=== PATIENT | male | born 1975 | race Caucasian/White ===

== ENCOUNTER 2017-06-15 11:48 | Inpatient (IN) | payer MEDICARE, OTHER, SELFPAY ==
[2017-06-15 11:49] VITALS: BP 134/89; PULSE 87; RESP 20; TEMP 37; O2SAT 99; BMI 23.5
--- NOTE | 2017-06-15 12:11 | XR_ITS ---
XR chest portable HISTORY: ITS.REASON: cough ORDERING PHYSICIAN: Jose Cole MD PATIENT AGE: 41 years COMPARISON: None available FINDINGS: The cardiomediastinal silhouette and pulmonary vascularity are within normal limits. Tracheostomy tube is present in good position on frontal view. Patchy density is present in both lower lobes consistent with atelectasis and/or infiltrate left greater than right. Upper lobes are clear. No acute bony anomalies. Multilevel thoracic osteophytosis.. IMPRESSION: Bilateral lower lobe atelectasis and/or infiltrate left greater than right with tracheostomy tube present
--- NOTE | 2017-06-15 12:14 | HMH.EDSOB ---
ED Disposition Clinical Impression: Dehydration with hypernatremia Pneumonia Qualifiers: Pneumonia type: due to unspecified organism Laterality: bilateral Lung location: lower lobe of lung Qualified Code(s): J18.9 - Pneumonia, unspecified organism Disposition: Still a Patient Condition on Discharge: Fair Referrals: Juan Daniel Guidry [Primary Care Provider] - - Critical Care Critical Care Time: No Attestation: On , the high probability of a clinically significant, sudden or life threatening deterioration of the following system(s) required my full and direct attention, intervention and personal management. The time I documented below is in addition to time spent performing reported procedures but includes the following listed in this critical care notation. Medical Decision Making - Medical Records Medical records reviewed: Yes: I reviewed the patient's medical records. Vital Signs: 06/15/17 11:49 Temperature 98.6 F Temperature Source Temporal Artery Scan Pulse Rate [Right Brachial] 87 Respiratory Rate 20 Blood Pressure [Right Arm] 134/89 Blood Pressure Mean [Right Arm] 104 Blood Pressure Source [Right Arm] Automatic Cuff Blood Pressure Position [Right Arm] Supine 02 Sat by Pulse Oximetry 99 Oxygen Delivery Method Trach Collar - Lab Data Lab Results 06/15/17 12:29: Specimen Source L brachial, O2 % 2 lpm, ABG pH 7.45, ABG pCO2 37.4, ABG pO2 89.2, ABG HCO3 25.1, ABG Total CO2 26.3, ABG O2 Saturation 97, ABG Base Excess 1.0, Sudhakar Test n/a 06/15/17 12:40: WBC 16.9 H, RBC 4.31 L, Hgb 11.7 L, Hct 38.9 L, MCV 90.2, MCH 27.1, MCHC 30.0 L, RDW 15.6, Plt Count 383, MPV 8.8, Neut % (Auto) 75.1, Lymph % (Auto) 18.3, [place] % (Auto) 5.3, Eos % (Auto) 0.7, Baso % (Auto) 0.5, Neut # (Auto) 12.7 H, Lymph # (Auto) 3.1, [place] # (Auto) 0.9, Eos # (Auto) 0.1, Baso # (Auto) 0.1 06/15/17 12:40: Sodium 152 H*, Potassium 4.2, Chloride 118 H, Carbon Dioxide 27, Anion Gap 11.2, BUN 38 H, Creatinine 0.73, Estimated Creat Clear 126, Estimated GFR 117, Est GFR ( Amer) 142, Glucose 143 H, Calcium 9.2, Total Bilirubin 0.3, AST 9 L, ALT 16, Alkaline Phosphatase 81, Total Protein 7.9, Albumin 1.9 L, Globulin 6.0 H, Albumin/Globulin Ratio 0.3 L 06/15/17 12:40: Lactic Acid 0.8 06/15/17 12:40: Influenza Type A Ag Negative, Influenza Type B Ag Negative, Group A Strep Rapid Cancelled Result diagrams: 06/15/17 12:40 06/15/17 12:40 Orders (Tests/Meds): ORDERS Category Date Time Status Complete Blood Count Auto Diff Stat Lab 06/15/17 12:40 Results Blood Culture Stat Micro 06/15/17 12:40 Received Sputum Culture & Gram Stain Stat Micro 06/15/17 13:05 Received - Radiology Data #1 Image(s): Chest Image Reviewed: Yes I reviewed the patient's radiology image, Yes I have reviewed radiologist's interpretation Preliminary Findings: Abnormal Bibasilar atelectasis cannot exclude acute infiltrate. IMPRESSION: Bilateral lower lobe atelectasis and/or infiltrate left greater than right with tracheostomy tube present - Twin Inquiry Pt receiving controlled substance: No Twin was queried for this patient: No Medical Decision Making Narrative: I reviewed the chest x-ray reports in addition to his labs and discussed it with Dr. Alejandro who accepted to admit the patient for pneumonia and dehydration. Contacted the state guardian and the family were unable to obtain further medical information to help with his care. Resp/SOB HPI - General Chief Complaint: Shortness of Breath/Dyspnea Stated Complaint: Decreased O2 sats Mode of Arrival: EMS Limitations: Physical Limitations Description of Symptoms (Recalled from ER Triage Doc. by RN): Pt sent from [facility] after staff advises he had low o2 sats and green sputum coming from his trach. Pt presents to ED with sats 98% with 4lpm. - History of Present Illness 41 years old white male with with history of quadriparesis tracheostomy feeding tube and ind
--- NOTE | 2017-06-15 12:22 | ED_ITS ---
ED Disposition Clinical Impression: Dehydration with hypernatremia Pneumonia Qualifiers: Pneumonia type: due to unspecified organism Laterality: bilateral Lung location : lower lobe of lung Qualified Code(s): J18.9 - Pneumonia, unspecified organism Disposition: Still a Patient Condition on Discharge: Fair Referrals: Juan Daniel Guidry [Primary Care Provider] - - Critical Care Critical Care Time: No Attestation: On , the high probability of a clinically significant, sudden or life threatening deterioration of the following system(s) required my full and direct attention, intervention and personal management. The time I documented below is in addition to time spent performing reported procedures but includes the following listed in this critical care notation. Medical Decision Making - Medical Records Medical records reviewed: Yes: I reviewed the patient's medical records. Vital Signs: 06/15/17 11:49 Temperature 98.6 F Temperature Source Temporal Artery Scan Pulse Rate [Right Brachial] 87 Respiratory Rate 20 Blood Pressure [Right Arm] 134/89 Blood Pressure Mean [Right Arm] 104 Blood Pressure Source [Right Arm] Automatic Cuff Blood Pressure Position [Right Arm] Supine 02 Sat by Pulse Oximetry 99 Oxygen Delivery Method Trach Collar - Lab Data Lab Results 06/15/17 12:29: Specimen Source L brachial, O2 % 2 lpm, ABG pH 7.45, ABG pCO2 37.4, ABG pO2 89.2, ABG HCO3 25.1, ABG Total CO2 26.3, ABG O2 Saturation 97, ABG Base Excess 1.0, Sudhakar Test n/a 06/15/17 12:40: WBC 16.9 H, RBC 4.31 L, Hgb 11.7 L, Hct 38.9 L, MCV 90.2, MCH 27.1, MCHC 30.0 L, RDW 15.6, Plt Count 383, MPV 8.8, Neut % (Auto) 75.1, Lymph % (Auto) 18.3, [place] % (Auto) 5.3, Eos % (Auto) 0.7, Baso % (Auto) 0.5, Neut # ( Auto) 12.7 H, Lymph # (Auto) 3.1, [place] # (Auto) 0.9, Eos # (Auto) 0.1, Baso # ( Auto) 0.1 06/15/17 12:40: Sodium 152 H*, Potassium 4.2, Chloride 118 H, Carbon Dioxide 27 , Anion Gap 11.2, BUN 38 H, Creatinine 0.73, Estimated Creat Clear 126, Estimated GFR 117, Est GFR ( Amer) 142, Glucose 143 H, Calcium 9.2, Total Bilirubin 0.3, AST 9 L, ALT 16, Alkaline Phosphatase 81, Total Protein 7.9 , Albumin 1.9 L, Globulin 6.0 H, Albumin/Globulin Ratio 0.3 L 06/15/17 12:40: Lactic Acid 0.8 06/15/17 12:40: Influenza Type A Ag Negative, Influenza Type B Ag Negative, Group A Strep Rapid Cancelled Result diagrams: 06/15/17 12:40 06/15/17 12:40 Orders (Tests/Meds): ORDERS Category Date Time Status Complete Blood Count Auto Diff Stat Lab 06/15/17 12:40 Results Blood Culture Stat Micro 06/15/17 12:40 Received Sputum Culture & Gram Stain Stat Micro 06/15/17 13:05 Received - Radiology Data #1 Image(s): Chest Image Reviewed: Yes I reviewed the patient's radiology image, Yes I have reviewed radiologist's interpretation Preliminary Findings: Abnormal Bibasilar atelectasis cannot exclude acute infiltrate. IMPRESSION: Bilateral lower lobe atelectasis and/or infiltrate left greater than right with tracheostomy tube present - Twin Inquiry Pt receiving controlled substance: No Twin was queried for this patient: No Medical Decision Making Narrative: I reviewed the chest x-ray reports in addition to his labs and discussed it with Dr. Alejandro who accepted to admit the patient for pneumonia and dehydration. Contacted the state guardian and the family were unable to obtain further medical
[2017-06-15 13:11] LABS: Alanine Aminotransferase 16 U/L (12-78); Albumin Level 1.9 gm/dL (3.4-5.0); Albumin/Globulin Ratio 0.3 (1.1-1.8); Alkaline Phosphatase 81 U/L (46-116); Anion Gap 11.2 mEq/L (5-15); Aspartate Amino Transferase 9 U/L (15-37); Bilirubin,Total 0.3 mg/dL (0.2-1.0); Blood Urea Nitrogen 38 mg/dL (7-18); Calcium 9.2 mg/dL (8.5-10.1); Carbon Dioxide 27 mmol/L (21.0-32.0); Chloride 118 mmol/L (98-107); Creatinine Clearance Estimated 126 mL/min (0-300); Creatinine,Serum 0.73 mg/dL (0.70-1.30); Estimated Glomerular Filt Rate 117 ml/min (>60); GFR (African American) 142 ML/MIN (>60); Glucose 143 mg/dL (74-106); Potassium 4.2 mmoL/L (3.5-5.1); Total Protein,Serum 7.9 gm/dL (6.4-8.2)
[2017-06-15 13:12] LABS: ABG HCO3 25.1 mmhg (22.0-26.0); ABG Oxygen Saturation 97 % (90-100); ABG PCO2 37.4 mmhg (35.0-45.0); ABG PH 7.45 mmol/L (7.35-7.45); ABG PO2 89.2 mmhg (80-100); ABG TCO2 26.3 mmhg (23-27)
[2017-06-15 13:13] LABS: Lactic Acid 0.8 mmol/L (0.4-2.0); Sodium 152 mmol/L (136-145)
[2017-06-15 13:15] LABS: Oxygen 2 lpm %
[2017-06-15 13:16] LABS: Source L BRACHIAL
[2017-06-15 13:20] LABS: Basophils # 0.1 K/mm3 (0-0.2); Basophils % 0.5 % (0.1-2.0); Eosinophils # 0.1 K/mm3 (0.0-0.4); Eosinophils % 0.7 % (0.1-12.0); Hematocrit 38.9 % (42.0-52.0); Hemoglobin 11.7 g/dL (14.1-18.0); Lymphocytes # 3.1 K/mm3 (0.7-4.5); Lymphocytes % 18.3 K/mm3 (10-50); Mean Corpuscular Hemoglobin 27.1 pg (27.0-31.2); Mean Corpuscular Volume 90.2 fl (80-94); Mean Platelet Volume 8.8 fl (7.4-10.4); Monocytes # 0.9 K/mm3 (0.1-1.0); Monocytes % 5.3 % (1.7-9.3); Neutrophils # 12.7 K/mm3 (1.8-7.8); Neutrophils % 75.1 % (37.0-80.0); Platelet Count 383 K/mm3 (142-424); Red Blood Count 4.31 M/mm3 (4.60-6.20); Red Cell Distribution Width 15.6 % (11.5-17.5); White Blood Count 16.9 K/mm3 (4.8-10.8)
[2017-06-15 13:22] LABS: MANUAL DIFFERENTIAL MANUAL DIFFERENTIAL (MANUAL DIFF)
[2017-06-15 13:59] LABS: Eosinophils % 1 % (0-3); Lymphocytes % 17 % (10-50); Monocytes % 7 % (2-9); Neutrophils % 75 % (42-76); Total Cells Counted 100
[2017-06-15 14:00] LABS: Platelet Estimate Normal
[2017-06-15 14:15] LABS: RBC Morphology Normal
[2017-06-15 14:27] VITALS: BP 140/89; PULSE 110; RESP 20; O2SAT 98
[2017-06-15 16:42] VITALS: BP 130/70; PULSE 65; RESP 20; TEMP 36.9; O2SAT 98
[2017-06-15 17:03] VITALS: BP 104/80; PULSE 97; RESP 18; TEMP 37.8; O2SAT 94; BMI 23.1
--- NOTE | 2017-06-15 17:52 | HMH.HP ---
*Admission Date: 06/15/17 <Nilam Veliz - 06/15/17 18:36> *Chief complaint: decrease in O2 sats <Nilam Veliz - 06/15/17 18:36> *History of present illness: Mr Solorzano is a 41 years old white male who was admitted to [facility] 06/10/17 from [facility] with history of tracheostomy, feeding tube, colostomy and indwelling catheter. Yesterday, [facility] staff noticed greenish sputum from the tracheostomy. This morning the [facility] staff noticed low O2 saturation of 84% on 2 L. The patient was in no respiratory distress upon the EMS arrival. They placed him on 2 L nasal cannula and his sat was 96. Upon arrival to [facility] ER the patient seemed to be in no respiratory distress. He was afebrile and O2 sat remained at 94% on 2 L. CXR revealed possible bilateral infiltrates and he was admitted for further treatment. Information was obtained from the sister who had previously cared for him for 22 years. He regressed the past year and was made a varela of the [facility]. 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 He had seizures at about the age of 1. She stated that she taught him how to walk,talk, and eat. He then regressed and she is not sure why. 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 He has had surgical debridment of this. He is also a diabetic and has been anemic as well as having an enlarged heart, seizure disorder, UTI's, pseudomonas infections, and pneumonias. He has been unable to eat and has a feeding tube. According to the sister the colostomy was created in order to keep his wound clean. She was not clear as to why he has a trach tube, and records are incomplete. Nursing staff and I have not been able to reach the Long Term who is assigned to him. <VelizCarolynNilam - 06/15/17 18:36> [facility] History Medical History: Reports:: Diabetes Mellitus Type 2, Seizures, Urinary Tract Infection Denies:: Chronic Obstructive Pulmonary Disease (COPD) <Nilam Veliz 06/15/17 18:36> Other Medical History: Reports: Anemia <Nilam Veliz 06/15/17 18:36> Comment: wound debridment <Nilam Veliz 06/15/17 18:36> - *Social History Alcohol Intake: never <Nilam Veliz 06/15/17 17:58> Occupational Status: disabled <Nilam Veliz 06/15/17 17:58> Housing: [facility] <Nilam Veliz 06/15/17 17:58> Household Members: other <Nilam Veliz 06/15/17 17:58> - Psychiatric History Expresses thoughts of harming self/others: None <Nilam Veliz 06/15/17 17:58> Suicide Plan Description: No Plan <Nilam Veliz 06/15/17 17:58> *Family Hx:: Diabetes, Heart Attack <Nilam Veliz 06/15/17 18:36> Review of Systems - Review of Systems Review of systems:: unable to obtain <Nilam Veliz 06/15/17 18:36> Meds Allergies Allergy/AdvReac Type Severity Reaction Status Date / Time haloperidol [From Haldol] Allergy Verified 06/15/17 18:41 <Gary Alejandro - 06/15/17 18:58> Exam Vital signs and Labs for Last 24 Hours: Temp Pulse Resp BP Pulse Ox 100.1 F H 97 H 18 104/80 94 L 06/15/17 17:03 06/15/17 17:03 06/15/17 17:03 06/15/17 17:03 06/15/17 17:03 <Gary Alejandro - 06/15/17 18:58> Temp Pulse Resp BP Pulse Ox 100.1 F H 97 H 18 104/80 94 L 06/15/17 17:03 06/15/17 17:03 06/15/17 17:03 06/15/17 17:03 06/15/17 17:03 Laboratory Tests 06/15/17 06/15/17 06/15/17 12:29 12:40 12:40 WBC 16.9 H RBC 4.31 L Hgb 11.7 L Hct 38.9 L Neut % (Auto) 75.1 Lymph % (Auto) 18.3 [place] % (Auto) 5.3 ABG pH 7.45 ABG pCO2 37.4 ABG pO2 89.2 ABG HCO3 25.1 ABG Total CO2 26.3 Sodium 152 H* Potassium 4.2 Chloride 118 H Carbon Dioxide 27 Anion Gap 11.2 BUN 38 H Creatinine 0.73 Glucose 143 H Lactic Acid Calcium 9.2 Total Bilirubin 0.3 AST 9 L ALT 16
--- NOTE | 2017-06-15 17:58 | P.HP_ITS ---
*Admission Date: 06/15/17 <Nilam Veliz - 06/15/17 18:36> *Chief complaint: decrease in O2 sats <Nilam Veliz - 06/15/17 18:36> *History of present illness: Mr Solorzano is a 41 years old white male who was admitted to [facility] from [facility] with history of tracheostomy, feeding tube, colostomy and indwelling catheter. Yesterday, The correction staff noticed greenish sputum from the tracheostomy. This morning the correction staff noticed low O2 saturation of 84% on 2 L. The patient was in no respiratory distress upon the EMS arrival. They placed him on 2 L nasal cannula and his sat was 96. Upon arrival to [facility] ER the patient seemed to be in no respiratory distress. He was afebrile and O2 sat remained at 94% on 2 L. CXR revealed possible bilateral infiltrates and he was admitted for further treatment. Information was obtained from the sister who had previously cared for him for 22 years. He regressed the past year and was made a varela of the [facility]. 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 He had seizures at about the age of 1. She stated that she taught him how to walk,talk , and eat. He then regressed and she is not sure why. 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 He has had surgical debridment of this. He is also a diabetic and has been anemic as well as having an enlarged heart, seizure disorder, UTI's, pseudomonas infections, and pneumonias. He has been unable to eat and has a feeding tube. According to the sister the colostomy was created in order to keep his wound clean. She was not clear as to why he has a trach tube, and records are incomplete. Nursing staff and I have not been able to reach the Office Services Specialist who is assigned to him. <VelizCarolynNilam - 06/15/17 18:36> [facility] History Medical History: Reports:: Diabetes Mellitus Type 2, Seizures, Urinary Tract Infection Denies:: Chronic Obstructive Pulmonary Disease (COPD) <Nilam Veliz 18:36> Other Medical History: Reports: Anemia <Nilam Veliz 06/15/17 18:36> Comment: wound debridment <Nilam Veliz 06/15/17 18:36> - *Social History Alcohol Intake: never <Nilam Veliz 06/15/17 17:58> Occupational Status: disabled <Nilam Veliz 06/15/17 17:58> Housing: correction <Nilam Veliz 06/15/17 17:58> Household Members: other <Nilam Veliz 06/15/17 17:58> - Psychiatric History Expresses thoughts of harming self/others: None <Nilam Veliz 06/15/17 17: 58> Suicide Plan Description: No Plan <Nilam Veliz 06/15/17 17:58> *Family Hx:: Diabetes, Heart Attack <Nilam Veliz 06/15/17 18:36> Review of Systems - Review of Systems Review of systems:: unable to obtain <Nilam Veliz 06/15/17 18:36> Meds Allergies Allergy/AdvReac Type Severity Reaction Status Date / Time haloperidol [From Haldol] Allergy Verified 06/15/17 18:41 <Gary Alejandro - 06/15/17 18:58> Exam Vital signs and Labs for Last 24 Hours: Temp Pulse Resp BP Pulse Ox 100.1 F H 97 H 18 104/80 94 L 06/15/17 17:03 06/15/17 17:03 06/15/17 17:03 06/15/17 17:03 06/15/17 17:03 <Gary Alejandro - 06/15/17 18:58> Temp Pulse Resp BP Pulse Ox 100.1 F H 97 H 18 104/80 94 L 06/15/17 17:03 06/15/17 17:03 06/15/17 17:03 06/15/17 17:03 06/15/17 17:03 Laboratory Tests 06/15/17 06/15/17 06/15/17 12:29 12:40 12:40
[2017-06-15 21:06] VITALS: BP 104/78; PULSE 94; RESP 24; TEMP 36.3; O2SAT 96
[2017-06-16] VITALS (10 sets, daily range): BP systolic 110–144; BP diastolic 70–87; PULSE 62–98; RESP 18–24; TEMP 37.2–38.6; O2SAT 87–94; BMI 23.0
--- NOTE | 2017-06-16 01:46 | PC.NURSE ---
JEVITY 1.2 STARTED AT 15ML PER ORDER PER G TUBE AT 2130. NO RESIDUAL. AT 0130 NO RESIDUAL, INCREASED RATE BY 10ML PER HOUR FOR TOTAL OF 25ML PER HOUR. HOB ELEVATED.
--- NOTE | 2017-06-16 04:07 | PC.NURSE ---
nurse notified of pts temp
--- NOTE | 2017-06-16 04:29 | PC.NURSE ---
PT HAS REMAINED AWAKE ALL NIGHT. PT NONVERBAL, UNABLE TO DETERMINE ORIENTATION. TRACH INTACT WITH O2 AT 2L PER TRACH COLLAR. PT WITH PRODUCTIVE COUGH, CREAMY THICK SECRETIONS NOTED. SUCTION WITH YONKUER. PT WITH EXCESS SECRETIONS, DROOLING FROM MOUTH. GTUBE PER LUQ WITH JEVITY STARTED AT 15 ML PER HOUR. TOLERATING WELL. HAVE INCREASED TO 25ML PER HOUR. COLOSTOMY LLQ WITH LOOSE LIGHT BROWN STOOL NOTED. CONNOLLY TO BSD WITH SEDIMENT AND DARK YELLOW. PT HAS STAG 4 ULCER TO COCCYX, DRSG INTACT. PT TURNED EVERY 2 HOURS. TRACH CARE PERFORMED THIS AM. BILAT ARMS CONTRACTED. BILAT FOOT DROP NOTED.
--- NOTE | 2017-06-16 05:49 | PC.NURSE ---
AT 0530 RESIDUAL CHECK, NO RETURN. INCREASED JEVITY 1.2 TO 35ML PER HOUR. PT TOLERATING WELL.
[2017-06-16 06:50] LABS: Basophils # 0.1 K/mm3 (0-0.2); Basophils % 0.5 % (0.1-2.0); Eosinophils # 0.1 K/mm3 (0.0-0.4); Eosinophils % 0.5 % (0.1-12.0); Hematocrit 33.8 % (42.0-52.0); Lymphocytes % 16.9 K/mm3 (10-50); Mean Corpuscular HGB Conc 30.4 g/dL (31.8-35.4); Mean Corpuscular Hemoglobin 27.6 pg (27.0-31.2); Mean Corpuscular Volume 90.8 fl (80-94); Mean Platelet Volume 9.2 fl (7.4-10.4); Monocytes # 0.5 K/mm3 (0.1-1.0); Monocytes % 4.5 % (1.7-9.3); Neutrophils # 9.3 K/mm3 (1.8-7.8); Neutrophils % 77.7 % (37.0-80.0); Platelet Count 327 K/mm3 (142-424); Red Blood Count 3.72 M/mm3 (4.60-6.20); Red Cell Distribution Width 15.4 % (11.5-17.5)
[2017-06-16 06:59] LABS: Anion Gap 9.4 mEq/L (5-15); Blood Urea Nitrogen 43 mg/dL (7-18); Carbon Dioxide 28 mmol/L (21.0-32.0); Chloride 119 mmol/L (98-107); Creatinine Clearance Estimated 114 mL/min (0-300); Creatinine,Serum 0.77 mg/dL (0.70-1.30); Estimated Glomerular Filt Rate 110 ml/min (>60); GFR (African American) 133 ML/MIN (>60); Glucose 208 mg/dL (74-106); Potassium 4.4 mmoL/L (3.5-5.1)
[2017-06-16 07:00] LABS: Sodium 152 mmol/L (136-145)
[2017-06-16 07:06] LABS: Hemoglobin 10.4 g/dL (14.1-18.0)
--- NOTE | 2017-06-16 07:28 | HMH.PHAVTE ---
[facility] Pharmacy VTE Monitoring - Patient Demographics Admission date: 06/15/17 Report Date: 06/16/17 Time: 07:28 Allergies/Adverse Reactions: Patient Allergies haloperidol [From Haldol] Allergy (Verified 06/15/17 18:41) Height: 1.68 m Weight: 64.977 kg Patient Problems: Current Active Problems Pneumonia (Acute) Dehydration with hypernatremia (Acute) Type 2 diabetes mellitus (Acute) CRF (chronic renal failure) (Acute) Seizure disorder (Acute) Colostomy care (Acute) Tracheostomy in place (Acute) Dysphagia (Acute) Deaf (Acute) Mentally challenged (Acute) Gastrostomy tube in place (Acute) Decubitus ulcer (Chronic) Decubitus ulcer of sacral region, stage 4 (Chronic) Hypoxemia (Acute) - VTE Risk Labs: VTE Related Lab Results Hgb 10.4 g/dL (14.1-18.0) L D 06/16/17 06:25 Hct 33.8 % (42.0-52.0) L 06/16/17 06:25 Plt Count 327 K/mm3 (142-424) 06/16/17 06:25 BUN 43 mg/dL (7-18) H 06/16/17 06:25 Creatinine 0.77 mg/dL (0.70-1.30) 06/16/17 06:25 Estimated Creat Clear 114 mL/min (0-300) 06/16/17 06:25 Was VTE Risk Assessment Performed: No Clinical Trial Participant: No - Prophylaxis VTE Prophylaxis Ordered?: Yes Types of VTE Prophylaxis: TEDS Knee High
--- NOTE | 2017-06-16 08:17 | HMH.ACPN2 ---
<Krystal Castro - Last Filed: 06/16/17 08:17> Internal Medicine - PN: Subj *Date: 06/16/17 *Time: 08:17 Interval history: She is lying in the bed this a.m. He appears in no acute distress. Exam Vital signs and Labs for Last 24 Hours: Temp Pulse Resp BP Pulse Ox 99.7 F H 65 22 144/81 87 L 06/16/17 04:06 06/16/17 06:30 06/16/17 04:06 06/16/17 04:06 06/16/17 06:30 Laboratory Results - last 24 hr 06/16/17 06:25: WBC 12.0 H D, RBC 3.72 L, Hgb 10.4 L D, Hct 33.8 L, MCV 90.8, MCH 27.6, MCHC 30.4 L, RDW 15.4, Plt Count 327, MPV 9.2, Neut % (Auto) 77.7, Lymph % (Auto) 16.9, [place] % (Auto) 4.5, Eos % (Auto) 0.5, Baso % (Auto) 0.5, Neut # (Auto) 9.3 H, Lymph # (Auto) 2.0, [place] # (Auto) 0.5, Eos # (Auto) 0.1, Baso # (Auto) 0.1 06/16/17 06:25: Sodium 152 H*, Potassium 4.4, Chloride 119 H, Carbon Dioxide 28, Anion Gap 9.4, BUN 43 H, Creatinine 0.77, Estimated Creat Clear 114, Estimated GFR 110, Est GFR ( Amer) 133, Glucose 208 H D I & O for Last 24 hours: Intake & Output 06/13/17 06/14/17 06/15/17 06/16/17 11:59 11:59 11:59 11:59 Intake Total 837 / 837 Output Total 1051 / 1051 Balance -214 / -214 Weight 143 lb 3.996 oz - Constitutional no acute distress - *Routine Respiratory Exam Present: decreased breath sounds - *Routine Cardiovascular Exam Present: RRR - *Routine Abdominal Exam Present: soft, normoactive bowel sounds (G-tube and colostomy in place) - *Routine Extremities Exam Absent: edema Assessment and Plan (1) Pneumonia Current visit: Yes Status: Acute Qualifiers: Pneumonia type: due to unspecified organism Laterality: bilateral Lung location: lower lobe of lung Qualified Code(s): J18.9 - Pneumonia, unspecified organism Category: Medical Code(s): J18.9 - Pneumonia, unspecified organism (2) Hypoxemia Current visit: Yes Status: Acute Category: Medical Code(s): R09.02 - Hypoxemia (3) Type 2 diabetes mellitus Current visit: Yes Status: Acute Category: Medical Code(s): E11.9 - Type 2 diabetes mellitus without complications (4) CRF (chronic renal failure) Current visit: Yes Status: Acute Category: Medical Code(s): N18.9 - Chronic kidney disease, unspecified (5) Seizure disorder Current visit: Yes Status: Acute Category: Medical Code(s): G40.909 - Epilepsy, unspecified, not intractable, without status epilepticus (6) Colostomy care Current visit: Yes Status: Acute Category: Medical Code(s): Z43.3 - Encounter for attention to colostomy (7) Tracheostomy in place Current visit: Yes Status: Acute Category: Medical Code(s): Z93.0 - Tracheostomy status (8) Dysphagia Current visit: Yes Status: Acute Category: Medical Code(s): R13.10 - Dysphagia, unspecified (9) Deaf Current visit: Yes Status: Acute Category: Medical Code(s): H91.90 - Unspecified hearing loss, unspecified ear (10) Mentally challenged Current visit: Yes Status: Acute Category: Medical Code(s): F79 - Unspecified intellectual disabilities (11) Gastrostomy tube in place Current visit: Yes Status: Acute Category: Medical Code(s): Z93.1 - Gastrostomy status (12) Dehydration with hypernatremia Current visit: Yes Status: Acute Category: Medical Code(s): E87.0 - Hyperosmolality and hypernatremia (13) Decubitus ulcer Current visit: Yes Status: Chronic Category: Medical Code(s): L89.90 - Pressure ulcer of unspecified site, unspecified stage (14) Decubitus ulcer of sacral region, stage 4 Current visit: Yes Status: Chronic Category: Medical Code(s): L89.154 - Pressure ulcer of sacral region, stage 4 - Assessment and plan all Dx Assessment and Plan for all problems:: Patient is stable today. Will get another CXR and start on his home medications. <Gary Alejandro - Last Filed: 06/16/17 08:27> Internal Medicine - PN: Subj *Date: 06/16/17 *Time: 08:24 Exam Michelle
--- NOTE | 2017-06-16 08:21 | P.PN_ITS ---
<Krystal Castro - Last Filed: 06/16/17 08:17> Internal Medicine - PN: Subj *Date: 06/16/17 *Time: 08:17 Interval history: She is lying in the bed this a.m. He appears in no acute distress. Exam Vital signs and Labs for Last 24 Hours: Temp Pulse Resp BP Pulse Ox 99.7 F H 65 22 144/81 87 L 06/16/17 04:06 06/16/17 06:30 06/16/17 04:06 06/16/17 04:06 06/16/17 06:30 Laboratory Results - last 24 hr 06/16/17 06:25: WBC 12.0 H D, RBC 3.72 L, Hgb 10.4 L D, Hct 33.8 L, MCV 90.8, MCH 27.6, MCHC 30.4 L, RDW 15.4, Plt Count 327, MPV 9.2, Neut % (Auto) 77.7, Lymph % (Auto) 16.9, [place] % (Auto) 4.5, Eos % (Auto) 0.5, Baso % (Auto) 0.5, Neut # (Auto) 9.3 H, Lymph # (Auto) 2.0, [place] # (Auto) 0.5, Eos # (Auto) 0.1, Baso # (Auto) 0.1 06/16/17 06:25: Sodium 152 H*, Potassium 4.4, Chloride 119 H, Carbon Dioxide 28 , Anion Gap 9.4, BUN 43 H, Creatinine 0.77, Estimated Creat Clear 114, Estimated GFR 110, Est GFR ( Amer) 133, Glucose 208 H D I & O for Last 24 hours: Intake & Output 06/13/17 06/14/17 06/15/17 06/16/17 11:59 11:59 11:59 11:59 Intake Total 837 / 837 Output Total 1051 / 1051 Balance -214 / -214 Weight 143 lb 3.996 oz - Constitutional no acute distress - *Routine Respiratory Exam Present: decreased breath sounds - *Routine Cardiovascular Exam Present: RRR - *Routine Abdominal Exam Present: soft, normoactive bowel sounds (G-tube and colostomy in place) - *Routine Extremities Exam Absent: edema Assessment and Plan (1) Pneumonia Current visit: Yes Status: Acute Qualifiers: Pneumonia type: due to unspecified organism Laterality: bilateral Lung location: lower lobe of lung Qualified Code(s): J18.9 - Pneumonia, unspecified organism Category: Medical Code(s): J18.9 - Pneumonia, unspecified organism (2) Hypoxemia Current visit: Yes Status: Acute Category: Medical Code(s): R09.02 - Hypoxemia (3) Type 2 diabetes mellitus Current visit: Yes Status: Acute Category: Medical Code(s): E11.9 - Type 2 diabetes mellitus without complications (4) CRF (chronic renal failure) Current visit: Yes Status: Acute Category: Medical Code(s): N18.9 - Chronic kidney disease, unspecified (5) Seizure disorder Current visit: Yes Status: Acute Category: Medical Code(s): G40.909 - Epilepsy, unspecified, not intractable, without status epilepticus (6) Colostomy care Current visit: Yes Status: Acute Category: Medical Code(s): Z43.3 - Encounter for attention to colostomy (7) Tracheostomy in place Current visit: Yes Status: Acute Category: Medical Code(s): Z93.0 - Tracheostomy status (8) Dysphagia Current visit: Yes Status: Acute Category: Medical Code(s): R13.10 - Dysphagia, unspecified (9) Deaf Current visit: Yes Status: Acute Category: Medical Code(s): H91.90 - Unspecified hearing loss, unspecified ear (10) Mentally challenged Current visit: Yes Status: Acute Category: Medical Code(s): F79 - Unspecified intellectual disabilities (11) Gastrostomy tube in place Current visit: Yes Status: Acute Category: Medical Code(s): Z93.1 - Gastrostomy status (12) Dehydration with hypernatremia Current visit: Yes Status: Acute Category: Medical Code(s): E87.0 - Hyperosmolality and hypernatremia (13) Decubitus ulcer Current visit: Yes Status: Chronic Category: Medical C
--- NOTE | 2017-06-16 08:26 | XR_ITS ---
XR chest portable HISTORY: ITS.REASON: pneumonia ORDERING PHYSICIAN: Gary Alejandro MD PATIENT AGE: 41 years COMPARISON: 06/15/2017 FINDINGS: Tracheostomy tube remains in satisfactory position. Normal heart size. Bilateral lower lobe airspace disease once again noted slightly improved on the left and slightly worse on the right. Upper lobes are clear. IMPRESSION: Good position of tracheostomy tube Bilateral lower lobe airspace disease consistent with bilateral pneumonia slightly improved on the left but worse on the right.
--- NOTE | 2017-06-16 09:17 | HMH.ACPN2 ---
Internal Medicine - PN: Subj *Date: 06/16/17 *Time: 09:17 Exam Vital signs and Labs for Last 24 Hours: Temp Pulse Resp BP Pulse Ox 101.4 F H 96 H 22 119/87 92 L 06/16/17 08:00 06/16/17 08:00 06/16/17 08:00 06/16/17 08:00 06/16/17 08:00 Laboratory Results - last 24 hr 06/16/17 06:25: WBC 12.0 H D, RBC 3.72 L, Hgb 10.4 L D, Hct 33.8 L, MCV 90.8, MCH 27.6, MCHC 30.4 L, RDW 15.4, Plt Count 327, MPV 9.2, Neut % (Auto) 77.7, Lymph % (Auto) 16.9, [place] % (Auto) 4.5, Eos % (Auto) 0.5, Baso % (Auto) 0.5, Neut # (Auto) 9.3 H, Lymph # (Auto) 2.0, [place] # (Auto) 0.5, Eos # (Auto) 0.1, Baso # (Auto) 0.1 06/16/17 06:25: Sodium 152 H*, Potassium 4.4, Chloride 119 H, Carbon Dioxide 28, Anion Gap 9.4, BUN 43 H, Creatinine 0.77, Estimated Creat Clear 114, Estimated GFR 110, Est GFR ( Amer) 133, Glucose 208 H D I & O for Last 24 hours: Intake & Output 06/13/17 06/14/17 06/15/17 06/16/17 11:59 11:59 11:59 11:59 Intake Total 837 / 837 Output Total 1051 / 1051 Balance -214 / -214 Weight 143 lb 3.996 oz Assessment and Plan (1) Pneumonia Current visit: Yes Status: Acute Qualifiers: Pneumonia type: due to unspecified organism Laterality: bilateral Lung location: lower lobe of lung Qualified Code(s): J18.9 - Pneumonia, unspecified organism Category: Medical Code(s): J18.9 - Pneumonia, unspecified organism (2) Hypoxemia Current visit: Yes Status: Acute Category: Medical Code(s): R09.02 - Hypoxemia (3) Type 2 diabetes mellitus Current visit: Yes Status: Chronic Category: Medical Code(s): E11.9 - Type 2 diabetes mellitus without complications (4) CRF (chronic renal failure) Current visit: Yes Status: Chronic Category: Medical Code(s): N18.9 - Chronic kidney disease, unspecified (5) Seizure disorder Current visit: Yes Status: Chronic Category: Medical Code(s): G40.909 - Epilepsy, unspecified, not intractable, without status epilepticus (6) Colostomy care Current visit: Yes Status: Chronic Category: Medical Code(s): Z43.3 - Encounter for attention to colostomy (7) Tracheostomy in place Current visit: Yes Status: Chronic Category: Medical Code(s): Z93.0 - Tracheostomy status (8) Dysphagia Current visit: Yes Status: Chronic Category: Medical Code(s): R13.10 - Dysphagia, unspecified (9) Deaf Current visit: Yes Status: Chronic Category: Medical Code(s): H91.90 - Unspecified hearing loss, unspecified ear (10) Mentally challenged Current visit: Yes Status: Chronic Category: Medical Code(s): F79 - Unspecified intellectual disabilities (11) Gastrostomy tube in place Current visit: Yes Status: Chronic Category: Medical Code(s): Z93.1 - Gastrostomy status (12) Dehydration with hypernatremia Current visit: Yes Status: Acute Category: Medical Code(s): E87.0 - Hyperosmolality and hypernatremia (13) Decubitus ulcer Current visit: Yes Status: Chronic Category: Medical Code(s): L89.90 - Pressure ulcer of unspecified site, unspecified stage (14) Decubitus ulcer of sacral region, stage 4 Current visit: Yes Status: Chronic Category: Medical Code(s): L89.154 - Pressure ulcer of sacral region, stage 4
--- NOTE | 2017-06-16 10:50 | DIET.NUTRFU ---
Tube feeding currently at 35 ml/hr with no residuals. Spoke with nursing to increase to goal rate 60 ml/hr and to provide free water flushes 100 ml q 4 hours to provide total free water 1762 ml. Pt is on Jevity 1.2 and tolerating well. Glucose 208 this am. Pt may need insulin coverage vs formula change to Glucerna. Will monitor.
--- NOTE | 2017-06-16 14:32 | PC.NURSE ---
IV ANTIBIOTICS NOW INFUSING, G-TUBE INFUSING JEVITY 1.2 MALCOLM. AT 60 ML/HR ON [place] PUMP, G-TUBE FLUSHED WITH 50ML OF WATER WITH MED PASS AND 1 ML OF RESIDUAL WAS NOTED PRIOR TO MEDS GIVEN PER G-TUBE. PATIENT TOLERATED MEDS WELL. PATIENT HAS TRACH MASK WITH OXYGEN GOING AT 2LPM AND SATS STABLE. PATIENT SPITTING CLEAR SPIT AT TIMES. VSS. WILL CONTINUE TO MONITOR.
--- NOTE | 2017-06-16 16:22 | PC.NURSE ---
PATIENTS SATS DROPPED TO 84% ON 8LPM/35% TRACH [facility], CALLED RESPIRTATORY AND SHE IS GOING TO SUCTION HIM AND POSSIBLE GIVE A BREATHING TREATMENT.
--- NOTE | 2017-06-16 17:00 | PC.NURSE ---
PATIENT SATS ARE BETTER NOW AROUND 91-92% PATIENT RESTING IN BED.
--- NOTE | 2017-06-16 18:00 | PC.NURSE ---
PATIENT WAS LEANING OVER THE SIDE OF THE BED, WITH HIS TRACH MASK PULLED OFF OVER TO THE SIDE, AND HAD GREEN MUCUS COMING OUT OF HIS TRACH, I GOT HIM BACK IN THE BED AND SUCTIONED HIM AND PERFORMED TRACH CARE, SATS WAS 79-83% WHERE HE HAD REMOVED HIS OXYGEN, AFTER CLEANING HIM UP AND REPLACING HIS OXYGEN HIS SATS ARE NOW BACK UP IN THE 90'S.
[2017-06-17] VITALS (11 sets, daily range): BP systolic 98–134; BP diastolic 60–80; PULSE 61–89; RESP 16–24; TEMP 36.7–37.2; O2SAT 94–100
--- NOTE | 2017-06-17 04:06 | PC.NURSE ---
AT 0215 TRACH CARE PROVIDED. CHANGED DRESSING AROUND GTUBE. CHECKED RESIDUAL FROM GTUBE.. NO RESIDUAL NOTED.
--- NOTE | 2017-06-17 04:07 | PC.NURSE ---
AT 2030 RESIDUAL CHECKED. NO RESIDUAL RETURNED.
--- NOTE | 2017-06-17 04:08 | PC.NURSE ---
REDRESSED COCCYX WOUND. WET TO DRY DRSG PACKED WITH DRY ABD TO COVER AND SECURED WITH MEPILEX TAPE. PT TOLERATED WELL.
--- NOTE | 2017-06-17 04:38 | PC.NURSE ---
PT NONVERBAL. HAS SLEPT INTERMITTENTLY. WHEN AWAKE PT IS ALERT. TOLERATING JEVITY 1.2 AT 60ML PER HOUR. NO RESIDUAL NOTED. PT ABLE TO COUGH, SPUTUM HAS HAD A GREENISH TINT TO IT. 02 AT 2L PER TRACH COLLAR. CONNOLLY WITH MEDIUM YELLOW URINE NOTED. COLOSTOMY WITH LIGHT BROWN LOOSE BM NOTED. PT TURNED EVERY 2 HOURS OFF OF COCCYX DUE TO EXISTING ULCER.
[2017-06-17 07:15] LABS: Blood Urea Nitrogen 35 mg/dL (7-18); Carbon Dioxide 28 mmol/L (21.0-32.0); Chloride 118 mmol/L (98-107); Creatinine Clearance Estimated 118 mL/min (0-300); Creatinine,Serum 0.74 mg/dL (0.70-1.30); Estimated Glomerular Filt Rate 115 ml/min (>60); GFR (African American) 140 ML/MIN (>60); Glucose 189 mg/dL (74-106); Potassium 3.9 mmoL/L (3.5-5.1)
[2017-06-17 07:23] LABS: Basophils % 0.5 % (0.1-2.0); Eosinophils # 0.3 K/mm3 (0.0-0.4); Eosinophils % 3.6 % (0.1-12.0); Lymphocytes # 1.9 K/mm3 (0.7-4.5); Lymphocytes % 22.7 K/mm3 (10-50); Mean Corpuscular HGB Conc 29.5 g/dL (31.8-35.4); Mean Corpuscular Hemoglobin 26.9 pg (27.0-31.2); Mean Corpuscular Volume 91.2 fl (80-94); Mean Platelet Volume 9.6 fl (7.4-10.4); Monocytes # 0.4 K/mm3 (0.1-1.0); Monocytes % 5.1 % (1.7-9.3); Neutrophils # 5.8 K/mm3 (1.8-7.8); Neutrophils % 68.2 % (37.0-80.0); Platelet Count 288 K/mm3 (142-424); Red Cell Distribution Width 15.4 % (11.5-17.5); White Blood Count 8.4 K/mm3 (4.8-10.8)
[2017-06-17 07:32] LABS: Anion Gap 9.9 mEq/L (5-15); Sodium 152 mmol/L (136-145)
[2017-06-17 07:44] LABS: Hematocrit 32.9 % (42.0-52.0); Hemoglobin 9.7 g/dL (14.1-18.0); Red Blood Count 3.61 M/mm3 (4.60-6.20)
--- NOTE | 2017-06-17 08:10 | HMH.ACPN2 ---
<Krystal Castro - Last Filed: 06/17/17 08:10> Internal Medicine - PN: Subj *Date: 06/17/17 *Time: 08:10 Interval history: Nursing states patient was stable throughout the night. Exam Vital signs and Labs for Last 24 Hours: Temp Pulse Resp BP Pulse Ox 98.2 F 86 18 98/60 94 L 06/17/17 07:47 06/17/17 07:47 06/17/17 07:47 06/17/17 07:47 06/17/17 07:47 Laboratory Results - last 24 hr 06/17/17 06:20: WBC 8.4 D, RBC 3.61 L, Hgb 9.7 L, Hct 32.9 L, MCV 91.2, MCH 26.9 L, MCHC 29.5 L, RDW 15.4, Plt Count 288, MPV 9.6, Neut % (Auto) 68.2, Lymph % (Auto) 22.7, [place] % (Auto) 5.1, Eos % (Auto) 3.6, Baso % (Auto) 0.5, Neut # (Auto) 5.8, Lymph # (Auto) 1.9, [place] # (Auto) 0.4, Eos # (Auto) 0.3, Baso # (Auto) 0.0 06/17/17 06:25: Sodium 152 H*, Potassium 3.9, Chloride 118 H, Carbon Dioxide 28, Anion Gap 9.9, BUN 35 H, Creatinine 0.74, Estimated Creat Clear 118, Estimated GFR 115, Est GFR ( Amer) 140, Glucose 189 H I & O for Last 24 hours: Intake & Output 06/14/17 06/15/17 06/16/17 06/17/17 11:59 11:59 11:59 11:59 Intake Total 837 / 837 1002 / 1002 Output Total 1551 / 1551 1300 / 1300 Balance -714 / -714 -298 / -298 Weight 143 lb 3.996 oz Radiology Reports for the Last 24 Hours: CXR - Good position of tracheostomy tube. Bilateral lower lobe airspace disease consistent with bilateral pneumonia slightly improved on the left but worse on the right. - Constitutional no acute distress - *Routine Respiratory Exam Present: decreased breath sounds - *Routine Cardiovascular Exam Present: RRR - *Routine Abdominal Exam Present: soft (colostomy and G-tube in place) - *Routine Extremities Exam Absent: edema Assessment and Plan (1) Pneumonia Current visit: Yes Status: Acute Qualifiers: Pneumonia type: due to unspecified organism Laterality: bilateral Lung location: lower lobe of lung Qualified Code(s): J18.9 - Pneumonia, unspecified organism Category: Medical Code(s): J18.9 - Pneumonia, unspecified organism (2) Hypoxemia Current visit: Yes Status: Acute Category: Medical Code(s): R09.02 - Hypoxemia (3) Type 2 diabetes mellitus Current visit: Yes Status: Chronic Category: Medical Code(s): E11.9 - Type 2 diabetes mellitus without complications (4) CRF (chronic renal failure) Current visit: Yes Status: Chronic Category: Medical Code(s): N18.9 - Chronic kidney disease, unspecified (5) Seizure disorder Current visit: Yes Status: Chronic Category: Medical Code(s): G40.909 - Epilepsy, unspecified, not intractable, without status epilepticus (6) Colostomy care Current visit: Yes Status: Chronic Category: Medical Code(s): Z43.3 - Encounter for attention to colostomy (7) Tracheostomy in place Current visit: Yes Status: Chronic Category: Medical Code(s): Z93.0 - Tracheostomy status (8) Dysphagia Current visit: Yes Status: Chronic Category: Medical Code(s): R13.10 - Dysphagia, unspecified (9) Deaf Current visit: Yes Status: Chronic Category: Medical Code(s): H91.90 - Unspecified hearing loss, unspecified ear (10) Mentally challenged Current visit: Yes Status: Chronic Category: Medical Code(s): F79 - Unspecified intellectual disabilities (11) Gastrostomy tube in place Current visit: Yes Status: Chronic Category: Medical Code(s): Z93.1 - Gastrostomy status (12) Dehydration with hypernatremia Current visit: Yes Status: Acute Category: Medical Code(s): E87.0 - Hyperosmolality and hypernatremia (13) Decubitus ulcer Current visit: Yes Status: Chronic Category: Medical Code(s): L89.90 - Pressure ulcer of unspecified site, unspecified stage (14) Decubitus ulcer of sacral region, stage 4 Current visit: Yes Status: Chronic Category: Medical Code(s): L89.154 - Pressure ulcer of sacral region, stage 4 - Assessment and plan all Dx Assessment and Plan for all problems:
--- NOTE | 2017-06-17 14:46 | HMH.PHACONS ---
- Pharmacy Consult Date: 06/17/17 Time: 14:47 Referring provider: DR. GONZALEZ Reason for Consult:: TOBRAMYCIN DOSING Allergies and ADEs:: Allergies Allergy/AdvReac Type Severity Reaction Status Date / Time haloperidol [From Haldol] Allergy Verified 06/15/17 18:41 Home Medications:: Home Medications Medication Instructions Recorded Confirmed Type ALPRAZolam [Xanax 1mg tab] 1 mg G-TUBE Q8 06/15/17 06/15/17 History Acetaminophen [Tylenol] 650 mg G-TUBE Q6HP PRN 06/15/17 06/15/17 History Arginine/Glutamine/Calcium Hmb 1 each G-TUBE TID 06/15/17 06/15/17 History [Jonathan Packet] Baclofen 20 mg G-TUBE TID 06/15/17 06/15/17 History Docusate Sodium [Docusate Sod 50 mg G-TUBE BID 06/15/17 06/15/17 History Liquid 100mg/10mL udc] Famotidine [Pepcid 20mg Tablet] 20 mg G-TUBE BID 06/15/17 06/15/17 History Lactose-Reduced Food/Fiber 1,000 ml PO CONT 06/15/17 06/15/17 History [Isosource 1.5 Brandon Tube Feed Lq] Polyethylene Glycol 3350 [Miralax 17 gm G-TUBE DAILY PRN 06/15/17 06/15/17 History 17gm Packet] Protein Supplement [Prosource] 1 pack G-TUBE DAILY 06/15/17 06/15/17 History Sennosides [Senna] 8.6 mg G-TUBE BID 06/15/17 06/15/17 History Thiamine HCl 100 mg G-TUBE BID 06/15/17 06/15/17 History Valproic Acid (As Sodium Salt) 250 mg G-TUBE TID 06/15/17 06/15/17 History [Depakene syrup 250mg/5mL cherelle UDC] Vit B Cmplx 3/Folic AC/C/Biot 1 each G-TUBE DAILY 06/15/17 06/15/17 History [Syeda-[place]ron Rx Tablet] cephALEXin [Keflex 500mg Cap] 500 mg G-TUBE TID 06/15/17 06/15/17 History levETIRAcetam [Keppra 500mg tablet] 1,000 mg G-TUBE BID 06/15/17 06/15/17 History levOCARNitine tartrate 1,000 mg G-TUBE TID 06/15/17 06/15/17 History [l-Carnitine] risperiDONE [Risperdal 0.5mg 0.5 mg G-TUBE BID 06/15/17 06/15/17 History tablet] Height: 1.68 m Weight: 64.977 kg Laboratory Results:: Laboratory Results - last 24 hr 06/17/17 06:20: WBC 8.4 D, RBC 3.61 L, Hgb 9.7 L, Hct 32.9 L, MCV 91.2, MCH 26.9 L, MCHC 29.5 L, RDW 15.4, Plt Count 288, MPV 9.6, Neut % (Auto) 68.2, Lymph % (Auto) 22.7, [place] % (Auto) 5.1, Eos % (Auto) 3.6, Baso % (Auto) 0.5, Neut # (Auto) 5.8, Lymph # (Auto) 1.9, [place] # (Auto) 0.4, Eos # (Auto) 0.3, Baso # (Auto) 0.0 06/17/17 06:25: Sodium 152 H*, Potassium 3.9, Chloride 118 H, Carbon Dioxide 28, Anion Gap 9.9, BUN 35 H, Creatinine 0.74, Estimated Creat Clear 118, Estimated GFR 115, Est GFR ( Amer) 140, Glucose 189 H Medical History: Reports:: Diabetes Mellitus Type 2, Seizures, Urinary Tract Infection Denies:: Chronic Obstructive Pulmonary Disease (COPD) Assessment and Plan (1) Pneumonia Current visit: Yes Status: Acute Qualifiers: Pneumonia type: due to unspecified organism Laterality: bilateral Lung location: lower lobe of lung Qualified Code(s): J18.9 - Pneumonia, unspecified organism Category: Medical Code(s): J18.9 - Pneumonia, unspecified organism (2) Hypoxemia Current visit: Yes Status: Acute Category: Medical Code(s): R09.02 - Hypoxemia (3) Type 2 diabetes mellitus Current visit: Yes Status: Chronic Category: Medical Code(s): E11.9 - Type 2 diabetes mellitus without complications (4) CRF (chronic renal failure) Current visit: Yes Status: Chronic Category: Medical Code(s): N18.9 - Chronic kidney disease, unspecified (5) Seizure disorder Current visit: Yes Status: Chronic Category: Medical Code(s): G40.909 - Epilepsy, unspecified, not intractable, without status epilepticus (6) Colostomy care Current visit: Yes Status: Chronic Category: Medical Code(s): Z43.3 - Encounter for attention to colostomy (7) Tracheostomy in place Current visit: Yes Status: Chronic Category: Medical Code(s): Z93.0 - Tracheostomy status (8) Dysphagia Current visit: Yes Status: Chronic Category: Medical Code(s): R13.10 - Dysphagia, unspecified (9) Deaf Current visit: Yes Status: Chronic Category: Medical Co
--- NOTE | 2017-06-17 16:48 | SW/DCPLANNER ---
MR MINER PRESENTED INTO [facility] FROM [facility] WITH A DIAGNOSIS OF PNEUMONIA...MR MINER IS UNDER STATE [employer] AND CAME FROM [facility] IN [place]. I SPOKE WITH GU[employer]IANSH[employer] TODAY ON THE PHONE AND SINCE HE IS IN A DIFFERENT DISTRICTING AREA HE WILL BE UNDER A DIFFERENT WORKER... I CALLED [facility] TODAY AND HE IS ON A BEDHOLD AND WILL BE RETURNING BACK POST HIS ACUTE CARE STAY...DISPOSITION UNCERTAIN...
--- NOTE | 2017-06-17 20:00 | PC.NURSE ---
TUBE FEED RESIDUAL IS 10 ML AT THIS TIME. NO PROBLEMS NOTED. WILL CONTINUE TO MONITOR.
[2017-06-18] VITALS (11 sets, daily range): BP systolic 111–169; BP diastolic 59–77; PULSE 51–100; RESP 14–24; TEMP 36.4–37.4; O2SAT 97–100
--- NOTE | 2017-06-18 02:00 | PC.NURSE ---
TUBE FEED RESIDUAL IS 7 ML AT THIS TIME. NO PROBLEMS NOTED. WILL CONTINUE TO MONITOR.
--- NOTE | 2017-06-18 06:40 | PC.NURSE ---
PATIENT HAS SLEPT ON AND OFF THIS SHIFT. HE HAS TOLERATED TUBE FEEDING WELL WITH NO MORE THAN 10 ML RESIDUAL AT ONE TIME. PATIENT WAS SUCTIONED X4 AND WAS ABLE TO COUGH UP SPUTUM ON OWN AFTER COUGH WAS INITIATED WITH SUCTIONING. TRACH CARE WAS DONE THIS SHIFT. NO OTHER PROBLEMS NOTED AT THIS TIME. VSS. WILL CONTINUE TO MONITOR. SAFETY MEASURES IN PLACE, CALL LIGHT IN REACH.
[2017-06-18 06:54] LABS: Basophils % 0.4 % (0.1-2.0); Eosinophils # 0.5 K/mm3 (0.0-0.4); Eosinophils % 6.6 % (0.1-12.0); Hematocrit 29.1 % (42.0-52.0); Hemoglobin 8.8 g/dL (14.1-18.0); Lymphocytes # 1.9 K/mm3 (0.7-4.5); Lymphocytes % 23.7 K/mm3 (10-50); Mean Corpuscular HGB Conc 30.1 g/dL (31.8-35.4); Mean Corpuscular Hemoglobin 27.4 pg (27.0-31.2); Mean Platelet Volume 9.4 fl (7.4-10.4); Monocytes # 0.4 K/mm3 (0.1-1.0); Monocytes % 4.7 % (1.7-9.3); Neutrophils # 5.3 K/mm3 (1.8-7.8); Neutrophils % 64.7 % (37.0-80.0); Platelet Count 262 K/mm3 (142-424); Red Cell Distribution Width 15.3 % (11.5-17.5); White Blood Count 8.2 K/mm3 (4.8-10.8)
[2017-06-18 07:01] LABS: Anion Gap 8.9 mEq/L (5-15); Blood Urea Nitrogen 28 mg/dL (7-18); Carbon Dioxide 30 mmol/L (21.0-32.0); Chloride 112 mmol/L (98-107); Creatinine Clearance Estimated 139 mL/min (0-300); Creatinine,Serum 0.63 mg/dL (0.70-1.30); Estimated Glomerular Filt Rate 139 ml/min (>60); GFR (African American) 168 ML/MIN (>60); Glucose 262 mg/dL (74-106); Potassium 3.9 mmoL/L (3.5-5.1); Sodium 147 mmol/L (136-145)
--- NOTE | 2017-06-18 08:20 | HMH.ACPN2 ---
<Krystal Castro - Last Filed: 06/18/17 08:20> Internal Medicine - PN: Subj *Date: 06/18/17 *Time: 08:20 Interval history: Patient appears calm this a.m. Nursing states he has been stable. Exam Vital signs and Labs for Last 24 Hours: Temp Pulse Resp BP Pulse Ox 98.9 F 69 18 115/69 100 06/18/17 07:46 06/18/17 07:46 06/18/17 07:46 06/18/17 07:46 06/18/17 07:46 Laboratory Results - last 24 hr 06/17/17 23:35: Random Tobramycin 3.0 06/18/17 06:25: WBC 8.2, RBC 3.20 L, Hgb 8.8 L, Hct 29.1 L, MCV 91.0, MCH 27.4, MCHC 30.1 L, RDW 15.3, Plt Count 262, MPV 9.4, Neut % (Auto) 64.7, Lymph % (Auto) 23.7, [place] % (Auto) 4.7, Eos % (Auto) 6.6, Baso % (Auto) 0.4, Neut # (Auto) 5.3, Lymph # (Auto) 1.9, [place] # (Auto) 0.4, Eos # (Auto) 0.5 H, Baso # (Auto) 0.0 06/18/17 06:25: Sodium 147 H, Potassium 3.9, Chloride 112 H, Carbon Dioxide 30, Anion Gap 8.9, BUN 28 H, Creatinine 0.63 L, Estimated Creat Clear 139, Estimated GFR 139, Est GFR ( Amer) 168, Glucose 262 H D I & O for Last 24 hours: Intake & Output 06/15/17 06/16/17 06/17/17 06/18/17 11:59 11:59 11:59 11:59 Intake Total 837 / 837 1002 / 1002 2840 / 2840 Output Total 1551 / 1551 1420 / 1420 1350 / 1350 Balance -714 / -714 -418 / -418 1490 / 1490 Weight 143 lb 3.996 oz 143 lb 3.996 oz - Constitutional no acute distress - *Routine Respiratory Exam Present: decreased breath sounds, wheezes (faint) - *Routine Cardiovascular Exam Present: RRR - *Routine Abdominal Exam Present: soft, normoactive bowel sounds. Absent: tenderness (colostomy in place) - *Routine Extremities Exam Absent: edema Assessment and Plan (1) MRSA pneumonia Current visit: Yes Status: Acute Category: Medical Code(s): J15.212 - Pneumonia due to Methicillin resistant Staphylococcus aureus (2) Pseudomonal pneumonia Current visit: Yes Status: Acute Category: Medical Code(s): J15.1 - Pneumonia due to Pseudomonas (3) Pneumonia Current visit: Yes Status: Acute Qualifiers: Pneumonia type: due to unspecified organism Laterality: bilateral Lung location: lower lobe of lung Qualified Code(s): J18.9 - Pneumonia, unspecified organism Category: Medical Code(s): J18.9 - Pneumonia, unspecified organism (4) Hypoxemia Current visit: Yes Status: Acute Category: Medical Code(s): R09.02 - Hypoxemia (5) Type 2 diabetes mellitus Current visit: Yes Status: Chronic Category: Medical Code(s): E11.9 - Type 2 diabetes mellitus without complications (6) CRF (chronic renal failure) Current visit: Yes Status: Chronic Category: Medical Code(s): N18.9 - Chronic kidney disease, unspecified (7) Seizure disorder Current visit: Yes Status: Chronic Category: Medical Code(s): G40.909 - Epilepsy, unspecified, not intractable, without status epilepticus (8) Colostomy care Current visit: Yes Status: Chronic Category: Medical Code(s): Z43.3 - Encounter for attention to colostomy (9) Tracheostomy in place Current visit: Yes Status: Chronic Category: Medical Code(s): Z93.0 - Tracheostomy status (10) Dysphagia Current visit: Yes Status: Chronic Category: Medical Code(s): R13.10 - Dysphagia, unspecified (11) Deaf Current visit: Yes Status: Chronic Category: Medical Code(s): H91.90 - Unspecified hearing loss, unspecified ear (12) Mentally challenged Current visit: Yes Status: Chronic Category: Medical Code(s): F79 - Unspecified intellectual disabilities (13) Gastrostomy tube in place Current visit: Yes Status: Chronic Category: Medical Code(s): Z93.1 - Gastrostomy status (14) Dehydration with hypernatremia Current visit: Yes Status: Acute Category: Medical Code(s): E87.0 - Hyperosmolality and hypernatremia (15) Decubitus ulcer Current visit: Yes Status: Chronic Category: Medical Code(s): L89.90 - Pressure ulcer of unspecified site, unspecified stage (16)
--- NOTE | 2017-06-18 08:23 | P.PN_ITS ---
<Krystal Castro - Last Filed: 06/18/17 08:20> Internal Medicine - PN: Subj *Date: 06/18/17 *Time: 08:20 Interval history: Patient appears calm this a.m. Nursing states he has been stable. Exam Vital signs and Labs for Last 24 Hours: Temp Pulse Resp BP Pulse Ox 98.9 F 69 18 115/69 100 06/18/17 07:46 06/18/17 07:46 06/18/17 07:46 06/18/17 07:46 06/18/17 07:46 Laboratory Results - last 24 hr 06/17/17 23:35: Random Tobramycin 3.0 06/18/17 06:25: WBC 8.2, RBC 3.20 L, Hgb 8.8 L, Hct 29.1 L, MCV 91.0, MCH 27.4, MCHC 30.1 L, RDW 15.3, Plt Count 262, MPV 9.4, Neut % (Auto) 64.7, Lymph % (Auto ) 23.7, [place] % (Auto) 4.7, Eos % (Auto) 6.6, Baso % (Auto) 0.4, Neut # (Auto) 5.3, Lymph # (Auto) 1.9, [place] # (Auto) 0.4, Eos # (Auto) 0.5 H, Baso # (Auto) 0.0 06/18/17 06:25: Sodium 147 H, Potassium 3.9, Chloride 112 H, Carbon Dioxide 30, Anion Gap 8.9, BUN 28 H, Creatinine 0.63 L, Estimated Creat Clear 139, Estimated GFR 139, Est GFR ( Amer) 168, Glucose 262 H D I & O for Last 24 hours: Intake & Output 06/15/17 06/16/17 06/17/17 06/18/17 11:59 11:59 11:59 11:59 Intake Total 837 / 837 1002 / 1002 2840 / 2840 Output Total 1551 / 1551 1420 / 1420 1350 / 1350 Balance -714 / -714 -418 / -418 1490 / 1490 Weight 143 lb 3.996 oz 143 lb 3.996 oz - Constitutional no acute distress - *Routine Respiratory Exam Present: decreased breath sounds, wheezes (faint) - *Routine Cardiovascular Exam Present: RRR - *Routine Abdominal Exam Present: soft, normoactive bowel sounds. Absent: tenderness (colostomy in place ) - *Routine Extremities Exam Absent: edema Assessment and Plan (1) MRSA pneumonia Current visit: Yes Status: Acute Category: Medical Code(s): J15.212 - Pneumonia due to Methicillin resistant Staphylococcus aureus (2) Pseudomonal pneumonia Current visit: Yes Status: Acute Category: Medical Code(s): J15.1 - Pneumonia due to Pseudomonas (3) Pneumonia Current visit: Yes Status: Acute Qualifiers: Pneumonia type: due to unspecified organism Laterality: bilateral Lung location: lower lobe of lung Qualified Code(s): J18.9 - Pneumonia, unspecified organism Category: Medical Code(s): J18.9 - Pneumonia, unspecified organism (4) Hypoxemia Current visit: Yes Status: Acute Category: Medical Code(s): R09.02 - Hypoxemia (5) Type 2 diabetes mellitus Current visit: Yes Status: Chronic Category: Medical Code(s): E11.9 - Type 2 diabetes mellitus without complications (6) CRF (chronic renal failure) Current visit: Yes Status: Chronic Category: Medical Code(s): N18.9 - Chronic kidney disease, unspecified (7) Seizure disorder Current visit: Yes Status: Chronic Category: Medical Code(s): G40.909 - Epilepsy, unspecified, not intractable, without status epilepticus (8) Colostomy care Current visit: Yes Status: Chronic Category: Medical Code(s): Z43.3 - Encounter for attention to colostomy (9) Tracheostomy in place Current visit: Yes Status: Chronic Category: Medical Code(s): Z93.0 - Tracheostomy status (10) Dysphagia Current visit: Yes Status: Chronic Category: Medical Code(s): R13.10 - Dysphagia, unspecified (11) Deaf Current visit: Yes Status: Chronic Category: Medical Code(s): H91.90 - Unspecified hearing loss, unspecified ear (12) Mentally challenged Current visit: Yes Status: Chroni
--- NOTE | 2017-06-18 10:03 | PC.NURSE ---
assessed for PICC line insertion; bilateral upper extremity contractures noted, right worse than left; unable to manipulate right arm laterally due to contraction; able to manually extend left arm laterally approximately 45 degrees w/ resistance noted; Dr. Alejandro notified by phone not a candidate for PICC line insertion d/t upper extremity contractures; Z[facility] Johnson and Harsh also made aware
--- NOTE | 2017-06-18 10:07 | P.CONPHA_ITS ---
- Pharmacy Consult Date: 06/18/17 Time: 10:06 Referring provider: DR. GONZALEZ Reason for Consult:: VANCOMYCIN DOSING Allergies and ADEs:: Allergies Allergy/AdvReac Type Severity Reaction Status Date / Time haloperidol [From Haldol] Allergy Verified 06/15/17 18:41 Home Medications:: Home Medications Medication Instructions Recorded Confirmed Type ALPRAZolam [Xanax 1mg tab] 1 mg G-TUBE Q8 06/15/17 06/15/17 History Acetaminophen [Tylenol] 650 mg G-TUBE Q6HP PRN 06/15/17 06/15/17 History Arginine/Glutamine/Calcium Hmb 1 each G-TUBE TID 06/15/17 06/15/17 History [Jonathan Packet] Baclofen 20 mg G-TUBE TID 06/15/17 06/15/17 History Docusate Sodium [Docusate Sod 50 mg G-TUBE BID 06/15/17 06/15/17 History Liquid 100mg/10mL udc] Famotidine [Pepcid 20mg Tablet] 20 mg G-TUBE BID 06/15/17 06/15/17 History Lactose-Reduced Food/Fiber 1,000 ml PO CONT 06/15/17 06/15/17 History [Isosource 1.5 Brandon Tube Feed Lq] Polyethylene Glycol 3350 [Miralax 17 gm G-TUBE DAILY PRN 06/15/17 06/15/17 History 17gm Packet] Protein Supplement [Prosource] 1 pack G-TUBE DAILY 06/15/17 06/15/17 History Sennosides [Senna] 8.6 mg G-TUBE BID 06/15/17 06/15/17 History Thiamine HCl 100 mg G-TUBE BID 06/15/17 06/15/17 History Valproic Acid (As Sodium Salt) 250 mg G-TUBE TID 06/15/17 06/15/17 History [Depakene syrup 250mg/5mL cherelle UDC] Vit B Cmplx 3/Folic AC/C/Biot 1 each G-TUBE DAILY 06/15/17 06/15/17 History [Syeda-Byron Rx Tablet] cephALEXin [Keflex 500mg Cap] 500 mg G-TUBE TID 06/15/17 06/15/17 History levETIRAcetam [Keppra 500mg tablet] 1,000 mg G-TUBE BID 06/15/17 06/15/17 History levOCARNitine tartrate 1,000 mg G-TUBE TID 06/15/17 06/15/17 History [l-Carnitine] risperiDONE [Risperdal 0.5mg 0.5 mg G-TUBE BID 06/15/17 06/15/17 History tablet] Height: 1.68 m Weight: 64.977 kg Laboratory Results:: Laboratory Results - last 24 hr 06/17/17 23:35: Random Tobramycin 3.0 06/18/17 06:25: WBC 8.2, RBC 3.20 L, Hgb 8.8 L, Hct 29.1 L, MCV 91.0, MCH 27.4, MCHC 30.1 L, RDW 15.3, Plt Count 262, MPV 9.4, Neut % (Auto) 64.7, Lymph % (Auto ) 23.7, [place] % (Auto) 4.7, Eos % (Auto) 6.6, Baso % (Auto) 0.4, Neut # (Auto) 5.3, Lymph # (Auto) 1.9, [place] # (Auto) 0.4, Eos # (Auto) 0.5 H, Baso # (Auto) 0.0 06/18/17 06:25: Sodium 147 H, Potassium 3.9, Chloride 112 H, Carbon Dioxide 30, Anion Gap 8.9, BUN 28 H, Creatinine 0.63 L, Estimated Creat Clear 139, Estimated GFR 139, Est GFR ( Amer) 168, Glucose 262 H D Medical History: Reports:: Diabetes Mellitus Type 2, Seizures, Urinary Tract Infection Denies:: Chronic Obstructive Pulmonary Disease (COPD) Assessment and Plan (1) MRSA pneumonia Current visit: Yes Status: Acute Category: Medical Code(s): J15.212 - Pneumonia due to Methicillin resistant Staphylococcus aureus (2) Pseudomonal pneumonia Current visit: Yes Status: Acute Category: Medical Code(s): J15.1 - Pneumonia due to Pseudomonas (3) Hypoxemia Current visit: Yes Status: Acute Category: Medical Code(s): R09.02 - Hypoxemia (4) Type 2 diabetes mellitus Current visit: Yes Status: Chronic Category: Medical Code(s): E11.9 - Type 2 diabetes mellitus without complications (5) CRF (chronic renal failure) Current visit: Yes Status: Chronic Category: Medical Code(s): N18.9 - Chronic kidney disease, unspecified (6) Seizure disorder Current visit:
--- NOTE | 2017-06-18 11:47 | DIET.NUTRFU ---
pt tube feeds are Jevity 1.2 @ 60ml/hr continous drip. Nursing reports minimal residuals 2-5 ml's. No documentation of free water flushes. Spoke with nursing, pt is to receive 100 ml free water q 4 hrs. Pt with skin breakdown stage 4. Will add beneprotein 1 scoop with each free water flush. Pt may benefit from mvi supplement and ascorbic acid.
--- NOTE | 2017-06-18 16:46 | HMH.PHACONS ---
- Pharmacy Consult Date: 06/18/17 Time: 16:46 Referring provider: DR. GONZALEZ Reason for Consult:: TOBRAMYCIN LEVEL Allergies and ADEs:: Allergies Allergy/AdvReac Type Severity Reaction Status Date / Time haloperidol [From Haldol] Allergy Verified 06/15/17 18:41 Home Medications:: Home Medications Medication Instructions Recorded Confirmed Type ALPRAZolam [Xanax 1mg tab] 1 mg G-TUBE Q8 06/15/17 06/15/17 History Acetaminophen [Tylenol] 650 mg G-TUBE Q6HP PRN 06/15/17 06/15/17 History Arginine/Glutamine/Calcium Hmb 1 each G-TUBE TID 06/15/17 06/15/17 History [Jonathan Packet] Baclofen 20 mg G-TUBE TID 06/15/17 06/15/17 History Docusate Sodium [Docusate Sod 50 mg G-TUBE BID 06/15/17 06/15/17 History Liquid 100mg/10mL udc] Famotidine [Pepcid 20mg Tablet] 20 mg G-TUBE BID 06/15/17 06/15/17 History Lactose-Reduced Food/Fiber 1,000 ml PO CONT 06/15/17 06/15/17 History [Isosource 1.5 [place] Tube Feed Lq] Polyethylene Glycol 3350 [Miralax 17 gm G-TUBE DAILY PRN 06/15/17 06/15/17 History 17gm Packet] Protein Supplement [Prosource] 1 pack G-TUBE DAILY 06/15/17 06/15/17 History Sennosides [Senna] 8.6 mg G-TUBE BID 06/15/17 06/15/17 History Thiamine HCl 100 mg G-TUBE BID 06/15/17 06/15/17 History Valproic Acid (As Sodium Salt) 250 mg G-TUBE TID 06/15/17 06/15/17 History [Depakene syrup 250mg/5mL cherelle UDC] Vit B Cmplx 3/Folic AC/C/Biot 1 each G-TUBE DAILY 06/15/17 06/15/17 History [Syeda-Byron Rx Tablet] cephALEXin [Keflex 500mg Cap] 500 mg G-TUBE TID 06/15/17 06/15/17 History levETIRAcetam [Keppra 500mg tablet] 1,000 mg G-TUBE BID 06/15/17 06/15/17 History levOCARNitine tartrate 1,000 mg G-TUBE TID 06/15/17 06/15/17 History [l-Carnitine] risperiDONE [Risperdal 0.5mg 0.5 mg G-TUBE BID 06/15/17 06/15/17 History tablet] Height: 1.68 m Weight: 64.977 kg Laboratory Results:: Laboratory Results - last 24 hr 06/17/17 23:35: Random Tobramycin 3.0 06/18/17 06:25: WBC 8.2, RBC 3.20 L, Hgb 8.8 L, Hct 29.1 L, MCV 91.0, MCH 27.4, MCHC 30.1 L, RDW 15.3, Plt Count 262, MPV 9.4, Neut % (Auto) 64.7, Lymph % (Auto) 23.7, [place] % (Auto) 4.7, Eos % (Auto) 6.6, Baso % (Auto) 0.4, Neut # (Auto) 5.3, Lymph # (Auto) 1.9, [place] # (Auto) 0.4, Eos # (Auto) 0.5 H, Baso # (Auto) 0.0 06/18/17 06:25: Sodium 147 H, Potassium 3.9, Chloride 112 H, Carbon Dioxide 30, Anion Gap 8.9, BUN 28 H, Creatinine 0.63 L, Estimated Creat Clear 139, Estimated GFR 139, Est GFR ( Amer) 168, Glucose 262 H D Medical History: Reports:: Diabetes Mellitus Type 2, Seizures, Urinary Tract Infection Denies:: Chronic Obstructive Pulmonary Disease (COPD) Assessment and Plan (1) MRSA pneumonia Current visit: Yes Status: Acute Category: Medical Code(s): J15.212 - Pneumonia due to Methicillin resistant Staphylococcus aureus (2) Pseudomonal pneumonia Current visit: Yes Status: Acute Category: Medical Code(s): J15.1 - Pneumonia due to Pseudomonas (3) Hypoxemia Current visit: Yes Status: Acute Category: Medical Code(s): R09.02 - Hypoxemia (4) Type 2 diabetes mellitus Current visit: Yes Status: Chronic Category: Medical Code(s): E11.9 - Type 2 diabetes mellitus without complications (5) CRF (chronic renal failure) Current visit: Yes Status: Chronic Category: Medical Code(s): N18.9 - Chronic kidney disease, unspecified (6) Seizure disorder Current visit: Yes Status: Chronic Category: Medical Code(s): G40.909 - Epilepsy, unspecified, not intractable, without status epilepticus (7) Colostomy care Current visit: Yes Status: Chronic Category: Medical Code(s): Z43.3 - Encounter for attention to colostomy (8) Tracheostomy in place Current visit: Yes Status: Chronic Category: Medical Code(s): Z93.0 - Tracheostomy status (9) Dysphagia Current visit: Yes Status: Chronic Category: Medical Code(s): R13.10 - Dysphagia, unspecified (10) Deaf Current visit: Yes Status: Chronic
[2017-06-19] VITALS (12 sets, daily range): BP systolic 97–117; BP diastolic 54–74; PULSE 59–104; RESP 18–24; TEMP 36.2–37.3; O2SAT 93–100
--- NOTE | 2017-06-19 04:09 | PC.NURSE ---
PATIENT HAS SLEPT ON AND OFF THIS SHIFT. TRACH SUCTION WAS PERFORMED PER RN X3 SO FAR THIS SHIFT. PATIENT TOLERATING TUBE FEED WELL WITH 0 ML RESIDUAL AT 2000 AND 3 ML RESIDUAL AT 0200. PATIENT HAS BEEN TURNED/REPOSITIONED EVERY 2 HOURS. HE MAKES EYE CONTACT WHEN SPOKEN TO BUT REMAINS NON-VERBAL. PATIENT CURRENTLY RESTING IN BED. NO OTHER PROBLEMS NOTED AT THIS TIME. VSS. WILL CONTINUE TO MONITOR. SAFETY MEASURES IN PLACE, CALL LIGHT IN REACH.
[2017-06-19 07:18] LABS: Basophils % 0.3 % (0.1-2.0); Eosinophils # 0.5 K/mm3 (0.0-0.4); Eosinophils % 5.8 % (0.1-12.0); Hematocrit 28.8 % (42.0-52.0); Hemoglobin 8.9 g/dL (14.1-18.0); Lymphocytes % 23.1 K/mm3 (10-50); Mean Corpuscular HGB Conc 30.8 g/dL (31.8-35.4); Mean Corpuscular Hemoglobin 27.5 pg (27.0-31.2); Mean Corpuscular Volume 89.3 fl (80-94); Mean Platelet Volume 9.1 fl (7.4-10.4); Monocytes # 0.5 K/mm3 (0.1-1.0); Monocytes % 5.3 % (1.7-9.3); Neutrophils # 5.7 K/mm3 (1.8-7.8); Neutrophils % 65.5 % (37.0-80.0); Platelet Count 250 K/mm3 (142-424); Red Blood Count 3.23 M/mm3 (4.60-6.20); Red Cell Distribution Width 15.4 % (11.5-17.5); White Blood Count 8.7 K/mm3 (4.8-10.8)
[2017-06-19 07:21] LABS: Anion Gap 6.9 mEq/L (5-15); Blood Urea Nitrogen 22 mg/dL (7-18); Carbon Dioxide 31 mmol/L (21.0-32.0); Chloride 107 mmol/L (98-107); Creatinine Clearance Estimated 156 mL/min (0-300); Creatinine,Serum 0.56 mg/dL (0.70-1.30); Estimated Glomerular Filt Rate 159 ml/min (>60); GFR (African American) 193 ML/MIN (>60); Glucose 172 mg/dL (74-106); Potassium 3.9 mmoL/L (3.5-5.1); Sodium 141 mmol/L (136-145)
--- NOTE | 2017-06-19 09:03 | XR_ITS ---
XR chest portable COMPARISON: Portable semiupright chest 06/16/2017 HISTORY: Follow-up pneumonia TECHNIQUE: Portable upright chest FINDINGS: The tracheostomy cannula remains in good position. Is a somewhat poor inspiration. Bilateral lower lobe likely infiltrate still remain slightly more diffuse right side than left. Cardiac size is normal and the vascularity is normal. IMPRESSION: Persistent bilateral basilar pneumonic infiltrate possibly somewhat accentuated on the film due to the poor inspiration
--- NOTE | 2017-06-19 09:19 | HMH.ACPN2 ---
Internal Medicine - PN: Subj *Date: 06/19/17 *Time: 09:25 Interval history: No new problems. No apparent attempt made to wean O2 yesterday. Sats reported at 100%. Exam Vital signs and Labs for Last 24 Hours: Temp Pulse Resp BP Pulse Ox 98.6 F 66 22 110/60 98 06/19/17 07:55 06/19/17 07:55 06/19/17 07:55 06/19/17 07:55 06/19/17 08:00 Laboratory Results - last 24 hr 06/19/17 06:50: WBC 8.7, RBC 3.23 L, Hgb 8.9 L, Hct 28.8 L, MCV 89.3, MCH 27.5, MCHC 30.8 L, RDW 15.4, Plt Count 250, MPV 9.1, Neut % (Auto) 65.5, Lymph % (Auto) 23.1, [place] % (Auto) 5.3, Eos % (Auto) 5.8, Baso % (Auto) 0.3, Neut # (Auto) 5.7, Lymph # (Auto) 2.0, [place] # (Auto) 0.5, Eos # (Auto) 0.5 H, Baso # (Auto) 0.0 06/19/17 06:50: Sodium 141, Potassium 3.9, Chloride 107, Carbon Dioxide 31, Anion Gap 6.9, BUN 22 H, Creatinine 0.56 L, Estimated Creat Clear 156, Estimated GFR 159, Est GFR ( Amer) 193, Glucose 172 H I & O for Last 24 hours: Intake & Output 06/16/17 06/17/17 06/18/17 06/19/17 11:59 11:59 11:59 11:59 Intake Total 837 / 837 1002 / 1002 2840 / 2840 0 / 0 Output Total 1551 / 1551 1420 / 1420 1350 / 1350 1720 / 1720 Balance -714 / -714 -418 / -418 1490 / 1490 -1720 / -1720 Weight 143 lb 3.996 oz 143 lb 3.996 oz 143 lb 3.996 oz Narrative: Laboratory Results - last 24 hr 06/19/17 06:50: WBC 8.7, RBC 3.23 L, Hgb 8.9 L, Hct 28.8 L, MCV 89.3, MCH 27.5, MCHC 30.8 L, RDW 15.4, Plt Count 250, MPV 9.1, Neut % (Auto) 65.5, Lymph % (Auto) 23.1, [place] % (Auto) 5.3, Eos % (Auto) 5.8, Baso % (Auto) 0.3, Neut # (Auto) 5.7, Lymph # (Auto) 2.0, [place] # (Auto) 0.5, Eos # (Auto) 0.5 H, Baso # (Auto) 0.0 06/19/17 06:50: Sodium 141, Potassium 3.9, Chloride 107, Carbon Dioxide 31, Anion Gap 6.9, BUN 22 H, Creatinine 0.56 L, Estimated Creat Clear 156, Estimated GFR 159, Est GFR ( Amer) 193, Glucose 172 H - Constitutional no acute distress Comments: very alert but nonverbal. Follows with eyes - *Routine HEENT Exam ENT: Present: mucous membranes moist - *Routine Respiratory Exam Comments: clear anteriorly - *Routine Cardiovascular Exam Present: RRR - *Routine Abdominal Exam Present: soft, normoactive bowel sounds. Absent: tenderness, distended - *Routine Extremities Exam Absent: edema Assessment and Plan (1) MRSA pneumonia Current visit: Yes Status: Acute Category: Medical Code(s): J15.212 - Pneumonia due to Methicillin resistant Staphylococcus aureus (2) Pseudomonal pneumonia Current visit: Yes Status: Acute Category: Medical Code(s): J15.1 - Pneumonia due to Pseudomonas (3) Hypoxemia Current visit: Yes Status: Acute Category: Medical Code(s): R09.02 - Hypoxemia (4) Type 2 diabetes mellitus Current visit: Yes Status: Chronic Category: Medical Code(s): E11.9 - Type 2 diabetes mellitus without complications (5) CRF (chronic renal failure) Current visit: Yes Status: Chronic Category: Medical Code(s): N18.9 - Chronic kidney disease, unspecified (6) Seizure disorder Current visit: Yes Status: Chronic Category: Medical Code(s): G40.909 - Epilepsy, unspecified, not intractable, without status epilepticus (7) Colostomy care Current visit: Yes Status: Chronic Category: Medical Code(s): Z43.3 - Encounter for attention to colostomy (8) Tracheostomy in place Current visit: Yes Status: Chronic Category: Medical Code(s): Z93.0 - Tracheostomy status (9) Dysphagia Current visit: Yes Status: Chronic Category: Medical Code(s): R13.10 - Dysphagia, unspecified (10) Deaf Current visit: Yes Status: Chronic Category: Medical Code(s): H91.90 - Unspecified hearing loss, unspecified ear (11) Mentally challenged Current visit: Yes Status: Chronic Category: Medical Code(s): F79 - Unspecified intellectual disabilities (12) Gastrostomy tube in place Current visit: Yes Status: Chronic Category: Medical Code(s): Z93.1 -
--- NOTE | 2017-06-19 09:23 | P.PN_ITS ---
Internal Medicine - PN: Subj *Date: 06/19/17 *Time: 09:25 Interval history: No new problems. No apparent attempt made to wean O2 yesterday. Sats reported at 100%. Exam Vital signs and Labs for Last 24 Hours: Temp Pulse Resp BP Pulse Ox 98.6 F 66 22 110/60 98 06/19/17 07:55 06/19/17 07:55 06/19/17 07:55 06/19/17 07:55 06/19/17 08:00 Laboratory Results - last 24 hr 06/19/17 06:50: WBC 8.7, RBC 3.23 L, Hgb 8.9 L, Hct 28.8 L, MCV 89.3, MCH 27.5, MCHC 30.8 L, RDW 15.4, Plt Count 250, MPV 9.1, Neut % (Auto) 65.5, Lymph % (Auto ) 23.1, [place] % (Auto) 5.3, Eos % (Auto) 5.8, Baso % (Auto) 0.3, Neut # (Auto) 5.7, Lymph # (Auto) 2.0, [place] # (Auto) 0.5, Eos # (Auto) 0.5 H, Baso # (Auto) 0.0 06/19/17 06:50: Sodium 141, Potassium 3.9, Chloride 107, Carbon Dioxide 31, Anion Gap 6.9, BUN 22 H, Creatinine 0.56 L, Estimated Creat Clear 156, Estimated GFR 159, Est GFR ( Amer) 193, Glucose 172 H I & O for Last 24 hours: Intake & Output 06/16/17 06/17/17 06/18/17 06/19/17 11:59 11:59 11:59 11:59 Intake Total 837 / 837 1002 / 1002 2840 / 2840 0 / 0 Output Total 1551 / 1551 1420 / 1420 1350 / 1350 1720 / 1720 Balance -714 / -714 -418 / -418 1490 / 1490 -1720 / -1720 Weight 143 lb 3.996 oz 143 lb 3.996 oz 143 lb 3.996 oz Narrative: Laboratory Results - last 24 hr 06/19/17 06:50: WBC 8.7, RBC 3.23 L, Hgb 8.9 L, Hct 28.8 L, MCV 89.3, MCH 27.5, MCHC 30.8 L, RDW 15.4, Plt Count 250, MPV 9.1, Neut % (Auto) 65.5, Lymph % (Auto ) 23.1, [place] % (Auto) 5.3, Eos % (Auto) 5.8, Baso % (Auto) 0.3, Neut # (Auto) 5.7, Lymph # (Auto) 2.0, [place] # (Auto) 0.5, Eos # (Auto) 0.5 H, Baso # (Auto) 0.0 06/19/17 06:50: Sodium 141, Potassium 3.9, Chloride 107, Carbon Dioxide 31, Anion Gap 6.9, BUN 22 H, Creatinine 0.56 L, Estimated Creat Clear 156, Estimated GFR 159, Est GFR ( Amer) 193, Glucose 172 H - Constitutional no acute distress Comments: very alert but nonverbal. Follows with eyes - *Routine HEENT Exam ENT: Present: mucous membranes moist - *Routine Respiratory Exam Comments: clear anteriorly - *Routine Cardiovascular Exam Present: RRR - *Routine Abdominal Exam Present: soft, normoactive bowel sounds. Absent: tenderness, distended - *Routine Extremities Exam Absent: edema Assessment and Plan (1) MRSA pneumonia Current visit: Yes Status: Acute Category: Medical Code(s): J15.212 - Pneumonia due to Methicillin resistant Staphylococcus aureus (2) Pseudomonal pneumonia Current visit: Yes Status: Acute Category: Medical Code(s): J15.1 - Pneumonia due to Pseudomonas (3) Hypoxemia Current visit: Yes Status: Acute Category: Medical Code(s): R09.02 - Hypoxemia (4) Type 2 diabetes mellitus Current visit: Yes Status: Chronic Category: Medical Code(s): E11.9 - Type 2 diabetes mellitus without complications (5) CRF (chronic renal failure) Current visit: Yes Status: Chronic Category: Medical Code(s): N18.9 - Chronic kidney disease, unspecified (6) Seizure disorder Current visit: Yes Status: Chronic Category: Medical Code(s): G40.909 - Epilepsy, unspecified, not intractable, without status epilepticus (7) Colostomy care Current visit: Yes Status: Chronic Category: Medical Code(s): Z43.3 - Encounter for attention to colostomy (8) Tracheostomy in place Current visit: Yes Status: Chronic Category: Medical Code(s): Z93.0 - Tra
[2017-06-19 12:37] LABS: Hemoglobin A1C 6.7 % (0.0-7.0)
--- NOTE | 2017-06-19 20:00 | PC.NURSE ---
0 ML TUBE FEED RESIDUAL NOTED AT THIS TIME
[2017-06-19 21:40] LABS: POC Glucose,Bedside 223 mg/dL
[2017-06-19 21:40] LABS: POC Glucose,Bedside 149 mg/dL
--- NOTE | 2017-06-19 23:30 | PC.NURSE ---
PATIENT TAKEN OFF OXYGEN PER TRACH COLLAR AT THIS TIME PER RT WILL. WILL MONITOR PATIENT'S OXYGEN SATURATION ON ROOM AIR AND SEE HOW PATIENT DOES.
[2017-06-20] VITALS (13 sets, daily range): BP systolic 109–135; BP diastolic 70–92; PULSE 66–77; RESP 16–22; TEMP 36.8–37.7; O2SAT 92–99
--- NOTE | 2017-06-20 | PC.NURSE ---
PATIENT'S OXYGEN SATURATION IS 97% AT THIS TIME ON ROOM AIR. NO SOA OR S/S DISTRESS NOTED. RT NOTIFIED OF PATIENT'S O2 SAT. WILL KEEP PATIENT ON ROOM AIR AND CONTINUE TO MONITOR.
[2017-06-20 00:59] LABS: POC Glucose,Bedside 194 mg/dL
--- NOTE | 2017-06-20 02:00 | PC.NURSE ---
0 ML TUBE FEED RESIDUAL NOTED AT THIS TIME
[2017-06-20 03:30] LABS: POC Glucose,Bedside 208 mg/dL
--- NOTE | 2017-06-20 06:01 | PC.NURSE ---
PATIENT SEEMS TO HAVE RESTED WELL THIS SHIFT. TRACH CARE PERFORMED PER THIS NURSE; SITE CLEANED, INNER CANNULA AND TRACH SECUREMENT CHANGED. PATIENT IS COUGHING WELL ON HIS OWN FOR THE MOST PART WITH SECRETIONS BEING SLIGHTLY THINNER. PATIENT WAS SUCTIONED X2 THIS SHIFT. PATIENT WAS REMOVED FROM OXYGEN AND HAS BEEN ON ROOM AIR SINCE 2329 AND HAS MAINTAINED OXYGEN SATURATION OF 96-97%. PATIENT TURNED/REPOSITIONED EVERY 2 HOURS. DRESSING TO COCCYX CDI. PATIENT IN BED RESTING WITH EYES OPEN AT THIS TIME. VSS. WILL CONTINUE TO MONITOR. SAFETY MEASURES IN PLACE, CALL LIGHT IN REACH.
[2017-06-20 08:55] LABS: Vancomycin,Trough 19.9 mcg/ml (10.0-20.0)
[2017-06-20 08:56] LABS: Tobramycin,Trough 0.6 ug/ml (0-2.0)
--- NOTE | 2017-06-20 09:55 | HMH.ACPN2 ---
Internal Medicine - PN: Subj *Date: 06/20/17 *Time: 09:55 Interval history: Has weaned to room air. Has been very alert. Pulled mits off and tried to pull out trach yesterday. Exam Vital signs and Labs for Last 24 Hours: Temp Pulse Resp BP Pulse Ox 98.4 F 76 16 123/72 98 06/20/17 08:00 06/20/17 08:00 06/20/17 08:00 06/20/17 08:00 06/20/17 08:00 Laboratory Results - last 24 hr 06/19/17 06:50: Hemoglobin A1c 6.7 06/19/17 10:07: POC Glucose 223 06/19/17 16:35: POC Glucose 149 06/19/17 22:29: POC Glucose 194 06/20/17 03:20: POC Glucose 208 06/20/17 08:36: Vancomycin Trough 19.9 06/20/17 08:36: Tobramycin Trough 0.6 I & O for Last 24 hours: Intake & Output 06/17/17 06/18/17 06/19/17 06/20/17 11:59 11:59 11:59 11:59 Intake Total 1002 / 1002 2840 / 2840 0 / 0 5247 / 5247 Output Total 1420 / 1420 1350 / 1350 1720 / 1720 1800 / 1800 Balance -418 / -418 1490 / 1490 -1720 / -1720 3447 / 3447 Weight 143 lb 3.996 oz 143 lb 3.996 oz 152 lb 4 oz - Constitutional no acute distress - *Routine HEENT Exam ENT: Present: mucous membranes moist - *Routine Respiratory Exam Present: CTA bilaterally - *Routine Cardiovascular Exam Present: RRR - *Routine Abdominal Exam Present: soft, normoactive bowel sounds. Absent: tenderness, distended Assessment and Plan (1) MRSA pneumonia Current visit: Yes Status: Acute Category: Medical Code(s): J15.212 - Pneumonia due to Methicillin resistant Staphylococcus aureus (2) Pseudomonal pneumonia Current visit: Yes Status: Acute Category: Medical Code(s): J15.1 - Pneumonia due to Pseudomonas (3) Hypoxemia Current visit: Yes Status: Resolved Category: Medical Code(s): R09.02 - Hypoxemia resolved. Weaned to RA (4) Type 2 diabetes mellitus Current visit: Yes Status: Chronic Category: Medical Code(s): E11.9 - Type 2 diabetes mellitus without complications (5) CRF (chronic renal failure) Current visit: Yes Status: Chronic Category: Medical Code(s): N18.9 - Chronic kidney disease, unspecified (6) Seizure disorder Current visit: Yes Status: Chronic Category: Medical Code(s): G40.909 - Epilepsy, unspecified, not intractable, without status epilepticus (7) Colostomy care Current visit: Yes Status: Chronic Category: Medical Code(s): Z43.3 - Encounter for attention to colostomy (8) Tracheostomy in place Current visit: Yes Status: Chronic Category: Medical Code(s): Z93.0 - Tracheostomy status (9) Dysphagia Current visit: Yes Status: Chronic Category: Medical Code(s): R13.10 - Dysphagia, unspecified (10) Deaf Current visit: Yes Status: Chronic Category: Medical Code(s): H91.90 - Unspecified hearing loss, unspecified ear (11) Mentally challenged Current visit: Yes Status: Chronic Category: Medical Code(s): F79 - Unspecified intellectual disabilities (12) Gastrostomy tube in place Current visit: Yes Status: Chronic Category: Medical Code(s): Z93.1 - Gastrostomy status (13) Dehydration with hypernatremia Current visit: Yes Status: Acute Category: Medical Code(s): E87.0 - Hyperosmolality and hypernatremia (14) Decubitus ulcer Current visit: Yes Status: Chronic Category: Medical Code(s): L89.90 - Pressure ulcer of unspecified site, unspecified stage (15) Decubitus ulcer of sacral region, stage 4 Current visit: Yes Status: Chronic Category: Medical Code(s): L89.154 - Pressure ulcer of sacral region, stage 4 - Assessment and plan all Dx Assessment and Plan for all problems:: Continue per orders. D/c maintenance fluids. Probably return to [facility] tomorrow.
--- NOTE | 2017-06-20 09:58 | P.PN_ITS ---
Internal Medicine - PN: Subj *Date: 06/20/17 *Time: 09:55 Interval history: Has weaned to room air. Has been very alert. Pulled mits off and tried to pull out trach yesterday. Exam Vital signs and Labs for Last 24 Hours: Temp Pulse Resp BP Pulse Ox 98.4 F 76 16 123/72 98 06/20/17 08:00 06/20/17 08:00 06/20/17 08:00 06/20/17 08:00 06/20/17 08:00 Laboratory Results - last 24 hr 06/19/17 06:50: Hemoglobin A1c 6.7 06/19/17 10:07: POC Glucose 223 06/19/17 16:35: POC Glucose 149 06/19/17 22:29: POC Glucose 194 06/20/17 03:20: POC Glucose 208 06/20/17 08:36: Vancomycin Trough 19.9 06/20/17 08:36: Tobramycin Trough 0.6 I & O for Last 24 hours: Intake & Output 06/17/17 06/18/17 06/19/17 06/20/17 11:59 11:59 11:59 11:59 Intake Total 1002 / 1002 2840 / 2840 0 / 0 5247 / 5247 Output Total 1420 / 1420 1350 / 1350 1720 / 1720 1800 / 1800 Balance -418 / -418 1490 / 1490 -1720 / -1720 3447 / 3447 Weight 143 lb 3.996 oz 143 lb 3.996 oz 152 lb 4 oz - Constitutional no acute distress - *Routine HEENT Exam ENT: Present: mucous membranes moist - *Routine Respiratory Exam Present: CTA bilaterally - *Routine Cardiovascular Exam Present: RRR - *Routine Abdominal Exam Present: soft, normoactive bowel sounds. Absent: tenderness, distended Assessment and Plan (1) MRSA pneumonia Current visit: Yes Status: Acute Category: Medical Code(s): J15.212 - Pneumonia due to Methicillin resistant Staphylococcus aureus (2) Pseudomonal pneumonia Current visit: Yes Status: Acute Category: Medical Code(s): J15.1 - Pneumonia due to Pseudomonas (3) Hypoxemia Current visit: Yes Status: Resolved Category: Medical Code(s): R09.02 - Hypoxemia resolved. Weaned to RA (4) Type 2 diabetes mellitus Current visit: Yes Status: Chronic Category: Medical Code(s): E11.9 - Type 2 diabetes mellitus without complications (5) CRF (chronic renal failure) Current visit: Yes Status: Chronic Category: Medical Code(s): N18.9 - Chronic kidney disease, unspecified (6) Seizure disorder Current visit: Yes Status: Chronic Category: Medical Code(s): G40.909 - Epilepsy, unspecified, not intractable, without status epilepticus (7) Colostomy care Current visit: Yes Status: Chronic Category: Medical Code(s): Z43.3 - Encounter for attention to colostomy (8) Tracheostomy in place Current visit: Yes Status: Chronic Category: Medical Code(s): Z93.0 - Tracheostomy status (9) Dysphagia Current visit: Yes Status: Chronic Category: Medical Code(s): R13.10 - Dysphagia, unspecified (10) Deaf Current visit: Yes Status: Chronic Category: Medical Code(s): H91.90 - Unspecified hearing loss, unspecified ear (11) Mentally challenged Current visit: Yes Status: Chronic Category: Medical Code(s): F79 - Unspecified intellectual disabilities (12) Gastrostomy tube in place Current visit: Yes Status: Chronic Category: Medical Code(s): Z93.1 - Gastrostomy status (13) Dehydration with hypernatremia Current visit: Yes Status: Acute Category: Medical Code(s): E87.0 - Hyperosmolality and hypernatremia (14) Decubitus ulcer Current visit: Yes Status: Chronic Category: Medical Code(s): L89.90 - Pressure ulcer of unspecified site, unspecified stage (15) Decubitus ulcer of sacral region, stage 4 Moose
--- NOTE | 2017-06-20 10:18 | HMH.ACPN ---
Internal Medicine - PN: Subj *Date: 06/20/17 *Time: 10:18 Exam Vital signs and Labs for Last 24 Hours: Temp Pulse Resp BP Pulse Ox 98.4 F 76 16 123/72 98 06/20/17 08:00 06/20/17 08:00 06/20/17 08:00 06/20/17 08:00 06/20/17 08:00 Laboratory Results - last 24 hr 06/19/17 06:50: Hemoglobin A1c 6.7 06/19/17 10:07: POC Glucose 223 06/19/17 16:35: POC Glucose 149 06/19/17 22:29: POC Glucose 194 06/20/17 03:20: POC Glucose 208 06/20/17 08:36: Vancomycin Trough 19.9 06/20/17 08:36: Tobramycin Trough 0.6 I & O for Last 24 hours: Intake & Output 06/17/17 06/18/17 06/19/17 06/20/17 23:59 23:59 23:59 23:59 Intake Total 1002 / 1002 2840 / 2840 1174 / 1174 4073 / 4073 Output Total 1670 / 1670 1370 / 1370 1850 / 1850 800 / 800 Balance -668 / -668 1470 / 1470 -676 / -676 3273 / 3273 Weight 64.977 kg 64.977 kg 69.059 kg Assessment and Plan (1) MRSA pneumonia Current visit: Yes Status: Acute Category: Medical Code(s): J15.212 - Pneumonia due to Methicillin resistant Staphylococcus aureus (2) Pseudomonal pneumonia Current visit: Yes Status: Acute Category: Medical Code(s): J15.1 - Pneumonia due to Pseudomonas (3) Hypoxemia Current visit: Yes Status: Resolved Category: Medical Code(s): R09.02 - Hypoxemia (4) Type 2 diabetes mellitus Current visit: Yes Status: Chronic Category: Medical Code(s): E11.9 - Type 2 diabetes mellitus without complications (5) CRF (chronic renal failure) Current visit: Yes Status: Chronic Category: Medical Code(s): N18.9 - Chronic kidney disease, unspecified (6) Seizure disorder Current visit: Yes Status: Chronic Category: Medical Code(s): G40.909 - Epilepsy, unspecified, not intractable, without status epilepticus (7) Colostomy care Current visit: Yes Status: Chronic Category: Medical Code(s): Z43.3 - Encounter for attention to colostomy (8) Tracheostomy in place Current visit: Yes Status: Chronic Category: Medical Code(s): Z93.0 - Tracheostomy status (9) Dysphagia Current visit: Yes Status: Chronic Category: Medical Code(s): R13.10 - Dysphagia, unspecified (10) Deaf Current visit: Yes Status: Chronic Category: Medical Code(s): H91.90 - Unspecified hearing loss, unspecified ear (11) Mentally challenged Current visit: Yes Status: Chronic Category: Medical Code(s): F79 - Unspecified intellectual disabilities (12) Gastrostomy tube in place Current visit: Yes Status: Chronic Category: Medical Code(s): Z93.1 - Gastrostomy status (13) Dehydration with hypernatremia Current visit: Yes Status: Acute Category: Medical Code(s): E87.0 - Hyperosmolality and hypernatremia (14) Decubitus ulcer Current visit: Yes Status: Chronic Category: Medical Code(s): L89.90 - Pressure ulcer of unspecified site, unspecified stage (15) Decubitus ulcer of sacral region, stage 4 Current visit: Yes Status: Chronic Category: Medical Code(s): L89.154 - Pressure ulcer of sacral region, stage 4 The patient's infection will respond to the chosen ABx?: Yes Is the patient receiving the right drug, dose, and route?: Yes Could a more targeted ABx be ordered?: No (PATIENT WITH MRSA AND PSEUDOMONAS)
--- NOTE | 2017-06-20 10:18 | HMH.PHACONS ---
- Pharmacy Consult Date: 06/20/17 Time: 10:18 Referring provider: DR. GONZALEZ Reason for Consult:: VANCOMYCIN AND TOBRAMYCIN LEVEL Allergies and ADEs:: Allergies Allergy/AdvReac Type Severity Reaction Status Date / Time haloperidol [From Haldol] Allergy Verified 06/15/17 18:41 Home Medications:: Home Medications Medication Instructions Recorded Confirmed Type ALPRAZolam [Xanax 1mg tab] 1 mg G-TUBE Q8 06/15/17 06/15/17 History Acetaminophen [Tylenol] 650 mg G-TUBE Q6HP PRN 06/15/17 06/15/17 History Arginine/Glutamine/Calcium Hmb 1 each G-TUBE TID 06/15/17 06/15/17 History [Jonathan Packet] Baclofen 20 mg G-TUBE TID 06/15/17 06/15/17 History Docusate Sodium [Docusate Sod 50 mg G-TUBE BID 06/15/17 06/15/17 History Liquid 100mg/10mL udc] Famotidine [Pepcid 20mg Tablet] 20 mg G-TUBE BID 06/15/17 06/15/17 History Lactose-Reduced Food/Fiber 1,000 ml PO CONT 06/15/17 06/15/17 History [Isosource 1.5 Brandon Tube Feed Lq] Polyethylene Glycol 3350 [Miralax 17 gm G-TUBE DAILY PRN 06/15/17 06/15/17 History 17gm Packet] Protein Supplement [Prosource] 1 pack G-TUBE DAILY 06/15/17 06/15/17 History Sennosides [Senna] 8.6 mg G-TUBE BID 06/15/17 06/15/17 History Thiamine HCl 100 mg G-TUBE BID 06/15/17 06/15/17 History Valproic Acid (As Sodium Salt) 250 mg G-TUBE TID 06/15/17 06/15/17 History [Depakene syrup 250mg/5mL cherelle UDC] Vit B Cmplx 3/Folic AC/C/Biot 1 each G-TUBE DAILY 06/15/17 06/15/17 History [Syeda-Byron Rx Tablet] cephALEXin [Keflex 500mg Cap] 500 mg G-TUBE TID 06/15/17 06/15/17 History levETIRAcetam [Keppra 500mg tablet] 1,000 mg G-TUBE BID 06/15/17 06/15/17 History levOCARNitine tartrate 1,000 mg G-TUBE TID 06/15/17 06/15/17 History [l-Carnitine] risperiDONE [Risperdal 0.5mg 0.5 mg G-TUBE BID 06/15/17 06/15/17 History tablet] Height: 1.68 m Weight: 69.059 kg Laboratory Results:: Laboratory Results - last 24 hr 06/19/17 06:50: Hemoglobin A1c 6.7 06/19/17 10:07: POC Glucose 223 06/19/17 16:35: POC Glucose 149 06/19/17 22:29: POC Glucose 194 06/20/17 03:20: POC Glucose 208 06/20/17 08:36: Vancomycin Trough 19.9 06/20/17 08:36: Tobramycin Trough 0.6 Medical History: Reports:: Diabetes Mellitus Type 2, Seizures, Urinary Tract Infection Denies:: Chronic Obstructive Pulmonary Disease (COPD) Assessment and Plan (1) MRSA pneumonia Current visit: Yes Status: Acute Category: Medical Code(s): J15.212 - Pneumonia due to Methicillin resistant Staphylococcus aureus (2) Pseudomonal pneumonia Current visit: Yes Status: Acute Category: Medical Code(s): J15.1 - Pneumonia due to Pseudomonas (3) Hypoxemia Current visit: Yes Status: Resolved Category: Medical Code(s): R09.02 - Hypoxemia (4) Type 2 diabetes mellitus Current visit: Yes Status: Chronic Category: Medical Code(s): E11.9 - Type 2 diabetes mellitus without complications (5) CRF (chronic renal failure) Current visit: Yes Status: Chronic Category: Medical Code(s): N18.9 - Chronic kidney disease, unspecified (6) Seizure disorder Current visit: Yes Status: Chronic Category: Medical Code(s): G40.909 - Epilepsy, unspecified, not intractable, without status epilepticus (7) Colostomy care Current visit: Yes Status: Chronic Category: Medical Code(s): Z43.3 - Encounter for attention to colostomy (8) Tracheostomy in place Current visit: Yes Status: Chronic Category: Medical Code(s): Z93.0 - Tracheostomy status (9) Dysphagia Current visit: Yes Status: Chronic Category: Medical Code(s): R13.10 - Dysphagia, unspecified (10) Deaf Current visit: Yes Status: Chronic Category: Medical Code(s): H91.90 - Unspecified hearing loss, unspecified ear (11) Mentally challenged Current visit: Yes Status: Chronic Category: Medical Code(s): F79 - Unspecified intellectual disabilities (12) Gastrostomy tube in place Current visit: Yes Status: Chronic Category: Me
--- NOTE | 2017-06-20 10:26 | P.CONPHA_ITS ---
- Pharmacy Consult Date: 06/20/17 Time: 10:18 Referring provider: DR. GONZALEZ Reason for Consult:: VANCOMYCIN AND TOBRAMYCIN LEVEL Allergies and ADEs:: Allergies Allergy/AdvReac Type Severity Reaction Status Date / Time haloperidol [From Haldol] Allergy Verified 06/15/17 18:41 Home Medications:: Home Medications Medication Instructions Recorded Confirmed Type ALPRAZolam [Xanax 1mg tab] 1 mg G-TUBE Q8 06/15/17 06/15/17 History Acetaminophen [Tylenol] 650 mg G-TUBE Q6HP PRN 06/15/17 06/15/17 History Arginine/Glutamine/Calcium Hmb 1 each G-TUBE TID 06/15/17 06/15/17 History [Jonathan Packet] Baclofen 20 mg G-TUBE TID 06/15/17 06/15/17 History Docusate Sodium [Docusate Sod 50 mg G-TUBE BID 06/15/17 06/15/17 History Liquid 100mg/10mL udc] Famotidine [Pepcid 20mg Tablet] 20 mg G-TUBE BID 06/15/17 06/15/17 History Lactose-Reduced Food/Fiber 1,000 ml PO CONT 06/15/17 06/15/17 History [Isosource 1.5 Brandon Tube Feed Lq] Polyethylene Glycol 3350 [Miralax 17 gm G-TUBE DAILY PRN 06/15/17 06/15/17 History 17gm Packet] Protein Supplement [Prosource] 1 pack G-TUBE DAILY 06/15/17 06/15/17 History Sennosides [Senna] 8.6 mg G-TUBE BID 06/15/17 06/15/17 History Thiamine HCl 100 mg G-TUBE BID 06/15/17 06/15/17 History Valproic Acid (As Sodium Salt) 250 mg G-TUBE TID 06/15/17 06/15/17 History [Depakene syrup 250mg/5mL cherelle UDC] Vit B Cmplx 3/Folic AC/C/Biot 1 each G-TUBE DAILY 06/15/17 06/15/17 History [Syeda-Byron Rx Tablet] cephALEXin [Keflex 500mg Cap] 500 mg G-TUBE TID 06/15/17 06/15/17 History levETIRAcetam [Keppra 500mg tablet] 1,000 mg G-TUBE BID 06/15/17 06/15/17 History levOCARNitine tartrate 1,000 mg G-TUBE TID 06/15/17 06/15/17 History [l-Carnitine] risperiDONE [Risperdal 0.5mg 0.5 mg G-TUBE BID 06/15/17 06/15/17 History tablet] Height: 1.68 m Weight: 69.059 kg Laboratory Results:: Laboratory Results - last 24 hr 06/19/17 06:50: Hemoglobin A1c 6.7 06/19/17 10:07: POC Glucose 223 06/19/17 16:35: POC Glucose 149 06/19/17 22:29: POC Glucose 194 06/20/17 03:20: POC Glucose 208 06/20/17 08:36: Vancomycin Trough 19.9 06/20/17 08:36: Tobramycin Trough 0.6 Medical History: Reports:: Diabetes Mellitus Type 2, Seizures, Urinary Tract Infection Denies:: Chronic Obstructive Pulmonary Disease (COPD) Assessment and Plan (1) MRSA pneumonia Current visit: Yes Status: Acute Category: Medical Code(s): J15.212 - Pneumonia due to Methicillin resistant Staphylococcus aureus (2) Pseudomonal pneumonia Current visit: Yes Status: Acute Category: Medical Code(s): J15.1 - Pneumonia due to Pseudomonas (3) Hypoxemia Current visit: Yes Status: Resolved Category: Medical Code(s): R09.02 - Hypoxemia (4) Type 2 diabetes mellitus Current visit: Yes Status: Chronic Category: Medical Code(s): E11.9 - Type 2 diabetes mellitus without complications (5) CRF (chronic renal failure) Current visit: Yes Status: Chronic Category: Medical Code(s): N18.9 - Chronic kidney disease, unspecified (6) Seizure disorder Current visit: Yes Status: Chronic Category: Medical Code(s): G40.909 - Epilepsy, unspecified, not intractable, without status epilepticus (7) Colostomy care Current visit: Yes Status: Chronic Category: Medical Code(s): Z43.3 - Encounter for attention to colostomy (8) Tracheostomy in p
[2017-06-21] VITALS: BP 118/68; PULSE 77; RESP 18; TEMP 37.2; O2SAT 95
[2017-06-21 03:29] VITALS: BP 143/65; PULSE 76; RESP 22; TEMP 38.2; O2SAT 93
--- NOTE | 2017-06-21 03:31 | PC.NURSE ---
nurse notified of pts temp
--- NOTE | 2017-06-21 05:21 | PC.NURSE ---
NO ACUTE CHANGES NOTED. Pt HAS BEEN RESTING IN BED. WAKES WHEN MEDICAL TX PROVIDED. PT NOTED TO BE COUGHING WITH THICK YELLOW SECRETIONS COMING FROM TRACH. PT WAS SUCTIONED X3 THIS SHIFT. HE HAS BEEN ON ROOM AIR T/O NIGHT. ROOM SATS MAINTAINING IN 90S. GTUBE OSMOLITE 1.2 INFUSING @ 60 ML/HR. BENEPROTEIN ADMIN Q 4 PER ORDER & 100 ML FLUSH. COLOSTOMY BAG CHANGED. PT TUNED Q2. V/S ARE STABLE AT THIS TIME. NO OTHER CONCERNS. WILL CONTINUE TO MONITOR.
[2017-06-21 06:09] VITALS: PULSE 65; PULSE 69; O2SAT 99
[2017-06-21 06:48] LABS: POC Glucose,Bedside 173 mg/dL
[2017-06-21 06:48] LABS: POC Glucose,Bedside 206 mg/dL
[2017-06-21 06:48] LABS: POC Glucose,Bedside 200 mg/dL
[2017-06-21 06:48] LABS: POC Glucose,Bedside 129 mg/dL
[2017-06-21 08:00] VITALS: BP 114/65; PULSE 70; RESP 18; TEMP 36.5
--- NOTE | 2017-06-21 08:09 | HMH.DCSUM ---
General - General Admission date: 06/15/17 <Gary Alejandro - 06/21/17 08:16> Discharge date: 06/21/17 <Nilam Veliz - 06/21/17 13:22> HPI HPI: Mr Solorzano is a 41 years old white male who was admitted to [facility] 06/10/17 from [facility]] with history of tracheostomy, feeding tube, colostomy and indwelling catheter. Yesterday, The custodial staff noticed greenish sputum from the tracheostomy. This morning the custodial staff noticed low O2 saturation of 84% on 2 L. The patient was in no respiratory distress upon the EMS arrival. They placed him on 2 L nasal cannula and his sat was 96. Upon arrival to [facility] ER the patient seemed to be in no respiratory distress. He was afebrile and O2 sat remained at 94% on 2 L. CXR revealed possible bilateral infiltrates and he was admitted for further treatment. Information was obtained from the sister who had previously cared for him for 22 years. He regressed the past year and was made a varela of the [facility]. 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 He had seizures at about the age of 1. She stated that she taught him how to walk,talk, and eat. He then regressed and she is not sure why. 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 He has had surgical debridment of this. He is also a diabetic and has been anemic as well as having an enlarged heart, seizure disorder, UTI's, pseudomonas infections, and pneumonias. He has been unable to eat and has a feeding tube. According to the sister the colostomy was created in order to keep his wound clean. She was not clear as to why he has a trach tube, and records are incomplete. Nursing staff and I have not been able to reach the Hardening Machine Operator Helper who is assigned to him. <Gary Alejandro - 06/21/17 08:16> Objective Vital signs: Temp Pulse Resp BP Pulse Ox 97.6 F 71 16 134/61 95 06/21/17 12:00 06/21/17 12:00 06/21/17 12:00 06/21/17 12:00 06/21/17 12:00 <Nilam Veliz - 06/21/17 14:22> Temp Pulse Resp BP Pulse Ox 100.7 F H 69 22 143/65 99 06/21/17 03:29 06/21/17 06:09 06/21/17 03:29 06/21/17 03:29 06/21/17 06:09 <Gary Alejandro - 06/21/17 08:16> Hospital Course Hospital Course: Physical exam on admission - Constitutional no acute distress <KerenNilam 06/15/17 18:36> - *Routine HEENT Exam Head: Present: normocephalic, atraumatic <KerenNilma 06/15/17 18:36> Comments: drools <KerenNilam 06/15/17 18:36> - *Routine Neck Exam Comments: tracheostomy <VelizNilam 06/15/17 18:36> - *Routine Respiratory Exam Present: decreased breath sounds (on the right ). Absent: accessory muscle use <VelizNilam 06/15/17 18:36> - *Routine Cardiovascular Exam Present: RRR <KerenNilam 06/15/17 18:36> - *Routine Abdominal Exam Present: soft, normoactive bowel sounds. Absent: tenderness <VelizNilam 06/15/17 18:36> Comments: GT in blace; colostomy bag in LMQ of abdomen <VelizNilam 06/15/17 18:36> - *Routine Extremities Exam Present: pulses intact. Absent: edema <VelizNilam 06/15/17 18:36> Comments: bilateral foot drop <VelizNilam 06/15/17 18:36> - *Routine Skin Exam Comments: coccyx decubitus-see picture-is about 8 cm ; has wound on great toe and soft left heel <VelizNilam 06/15/17 18:36> - *Routine Neurological Exam unable to assess <VelizNilam 06/15/17 18:36> On admission patient was started on ABX, Duonebs, and O2 per trach collar. Tube feedings of Jevity 1.2 at 60ml/hour were maintained. Pt tolerated well and maintenance fluids were discontinued on 06/18/17. He had regular stools per colostomy. BS were elevated with an A1C of 6.7 and was felt easily managed with sliding scale insulin. He had cuellar to greenish drainage from his tr
--- NOTE | 2017-06-21 08:14 | P.DS_ITS ---
General - General Admission date: 06/15/17 <Gary Alejandro - 06/21/17 08:16> Discharge date: 06/21/17 <Nilam Veliz - 06/21/17 13:22> HPI HPI: Mr Solorzano is a 41 years old white male who was admitted to [facility] from [facility] with history of tracheostomy, feeding tube, colostomy and indwelling catheter. Yesterday, The correction staff noticed greenish sputum from the tracheostomy. This morning the correction staff noticed low O2 saturation of 84% on 2 L. The patient was in no respiratory distress upon the EMS arrival. They placed him on 2 L nasal cannula and his sat was 96. Upon arrival to [facility] ER the patient seemed to be in no respiratory distress. He was afebrile and O2 sat remained at 94% on 2 L. CXR revealed possible bilateral infiltrates and he was admitted for further treatment. Information was obtained from the sister who had previously cared for him for 22 years. He regressed the past year and was made a varela of the [facility]. 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 He had seizures at about the age of 1. She stated that she taught him how to walk,talk , and eat. He then regressed and she is not sure why. 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 He has had surgical debridment of this. He is also a diabetic and has been anemic as well as having an enlarged heart, seizure disorder, UTI's, pseudomonas infections, and pneumonias. He has been unable to eat and has a feeding tube. According to the sister the colostomy was created in order to keep his wound clean. She was not clear as to why he has a trach tube, and records are incomplete. Nursing staff and I have not been able to reach the Treasurer who is assigned to him. <Gary Alejandro - 06/21/17 08:16> Objective Vital signs: Temp Pulse Resp BP Pulse Ox 97.6 F 71 16 134/61 95 06/21/17 12:00 06/21/17 12:00 06/21/17 12:00 06/21/17 12:00 06/21/17 12:00 <Nilam Veliz - 06/21/17 14:22> Temp Pulse Resp BP Pulse Ox 100.7 F H 69 22 143/65 99 06/21/17 03:29 06/21/17 06:09 06/21/17 03:29 06/21/17 03:29 06/21/17 06:09 <Gary Alejandro - 06/21/17 08:16> Hospital Course Hospital Course: Physical exam on admission - Constitutional no acute distress <Nilam Veliz 06/15/17 18:36> - *Routine HEENT Exam Head: Present: normocephalic, atraumatic <Nilam Veliz 06/15/17 18:36> Comments: drools <Nilam Veliz 06/15/17 18:36> - *Routine Neck Exam Comments: tracheostomy <Nilam Veliz 06/15/17 18:36> - *Routine Respiratory Exam Present: decreased breath sounds (on the right ). Absent: accessory muscle use <Nilam Veliz 06/15/17 18:36> - *Routine Cardiovascular Exam Present: RRR <Nilam Veliz 06/15/17 18:36> - *Routine Abdominal Exam Present: soft, normoactive bowel sounds. Absent: tenderness <Nilam Veliz 06/15/17 18:36> Comments: GT in blace; colostomy bag in LMQ of abdomen <Nilam Veliz 06/15/17 18:36> - *Routine Extremities Exam Present: pulses intact. Absent: edema <Nilam Veliz 06/15/17 18:36> Comments: bilateral foot drop <Nilam Veliz 06/15/17 18:36> - *Routine Skin Exam Comments: coccyx decubitus-see picture-is about 8 cm ; has wound on great toe and soft left heel <Nilam Veliz 06/15/17 18:36> -
--- NOTE | 2017-06-21 09:30 | SW/DCPLANNER ---
Patient discharging back to [facility] today...Patient is under state guardianship and has been notified that patient is here at [facility]....
--- NOTE | 2017-06-21 09:32 | HMH.ACPN2 ---
Internal Medicine - PN: Subj *Date: 06/21/17 *Time: 09:32 Exam Vital signs and Labs for Last 24 Hours: Temp Pulse Resp BP Pulse Ox 100.7 F H 69 22 143/65 99 06/21/17 03:29 06/21/17 06:09 06/21/17 03:29 06/21/17 03:29 06/21/17 06:09 Laboratory Results - last 24 hr 06/20/17 11:00: POC Glucose 200 06/20/17 15:52: POC Glucose 129 06/20/17 22:21: POC Glucose 173 06/21/17 03:59: POC Glucose 206 Selected Entries 06/19/17 15:37 06/19/17 19:50 06/19/17 22:00 Temperature 97.2 F L 98.7 F Blood Pressure [Right Arm] 97/55 99/64 Blood Pressure Mean [Right Arm] 69 75 02 Sat by Pulse Oximetry 100 96 96 06/20/17 00:00 06/20/17 03:20 06/20/17 04:00 Temperature 99.3 F 99.6 F Blood Pressure [Right Arm] 109/70 128/76 Blood Pressure Mean [Right Arm] 83 93 02 Sat by Pulse Oximetry 96 96 97 06/20/17 06:38 06/20/17 08:00 06/20/17 11:15 Temperature 98.4 F Blood Pressure [Right Arm] 123/72 Blood Pressure Mean [Right Arm] 89 02 Sat by Pulse Oximetry 98 97 98 06/20/17 12:00 06/20/17 15:56 06/20/17 19:36 Temperature 99.8 F H 99.3 F 98.2 F Blood Pressure [Right Arm] 131/86 126/74 135/92 Blood Pressure Mean [Right Arm] 101 91 106 02 Sat by Pulse Oximetry 99 97 92 L 06/20/17 21:25 06/21/17 00:00 06/21/17 03:29 Temperature 99.0 F 100.7 F H Blood Pressure [Right Arm] 118/68 143/65 Blood Pressure Mean [Right Arm] 84 91 02 Sat by Pulse Oximetry 92 L 95 93 L 06/21/17 06:09 Temperature Blood Pressure [Right Arm] Blood Pressure Mean [Right Arm] 02 Sat by Pulse Oximetry 99 I & O for Last 24 hours: Intake & Output 06/18/17 06/19/17 06/20/17 06/21/17 11:59 11:59 11:59 11:59 Intake Total 2840 / 2840 0 / 0 5247 / 5247 1366 / 1366 Output Total 1350 / 1350 1720 / 1720 1800 / 1800 2800 / 2800 Balance 1490 / 1490 -1720 / -1720 3447 / 3447 -1434 / -1434 Weight 143 lb 3.996 oz 143 lb 3.996 oz 152 lb 4 oz 152 lb 8 oz - Constitutional no acute distress Comments: awake ; smiles - *Routine Respiratory Exam Comments: scattered rhonchi - *Routine Cardiovascular Exam Present: RRR - *Routine Abdominal Exam Present: ostomy (colostomy) Comments: GT - *Routine Exam Comments: plunkett cath - *Routine Extremities Exam Absent: edema Comments: bilateral foot drop - *Routine Neurological Exam Present: alert unable to determine orientation Assessment and Plan (1) MRSA pneumonia Current visit: Yes Status: Acute Category: Medical Code(s): J15.212 - Pneumonia due to Methicillin resistant Staphylococcus aureus (2) Pseudomonal pneumonia Current visit: Yes Status: Acute Category: Medical Code(s): J15.1 - Pneumonia due to Pseudomonas (3) Hypoxemia Current visit: Yes Status: Resolved Category: Medical Code(s): R09.02 - Hypoxemia (4) Type 2 diabetes mellitus Current visit: Yes Status: Chronic Category: Medical Code(s): E11.9 - Type 2 diabetes mellitus without complications (5) CRF (chronic renal failure) Current visit: Yes Status: Chronic Category: Medical Code(s): N18.9 - Chronic kidney disease, unspecified (6) Seizure disorder Current visit: Yes Status: Chronic Category: Medical Code(s): G40.909 - Epilepsy, unspecified, not intractable, without status epilepticus (7) Colostomy care Current visit: Yes Status: Chronic Category: Medical Code(s): Z43.3 - Encounter for attention to colostomy (8) Tracheostomy in place Current visit: Yes Status: Chronic Category: Medical Code(s): Z93.0 - Tracheostomy status (9) Dysphagia Current visit: Yes Status: Chronic Category: Medical Code(s): R13.10 - Dysphagia, unspecified (10) Deaf Current visit: Yes Status: Chronic Category: Medical Code(s): H91.90 - Unspecified hearing loss, unspecified ear (11) Mentally challenged Current visit: Yes Status: Chronic Category: Medical Code(s): F79 - Unspecified intellectual disabilities
--- NOTE | 2017-06-21 09:36 | P.PN_ITS ---
Internal Medicine - PN: Subj *Date: 06/21/17 *Time: 09:32 Exam Vital signs and Labs for Last 24 Hours: Temp Pulse Resp BP Pulse Ox 100.7 F H 69 22 143/65 99 06/21/17 03:29 06/21/17 06:09 06/21/17 03:29 06/21/17 03:29 06/21/17 06:09 Laboratory Results - last 24 hr 06/20/17 11:00: POC Glucose 200 06/20/17 15:52: POC Glucose 129 06/20/17 22:21: POC Glucose 173 06/21/17 03:59: POC Glucose 206 Selected Entries 06/19/17 15:37 06/19/17 19:50 06/19/17 22:00 Temperature 97.2 F L 98.7 F Blood Pressure [Right Arm] 97/55 99/64 Blood Pressure Mean [Right Arm] 69 75 02 Sat by Pulse Oximetry 100 96 96 06/20/17 00:00 06/20/17 03:20 06/20/17 04:00 Temperature 99.3 F 99.6 F Blood Pressure [Right Arm] 109/70 128/76 Blood Pressure Mean [Right Arm] 83 93 02 Sat by Pulse Oximetry 96 96 97 06/20/17 06:38 06/20/17 08:00 06/20/17 11:15 Temperature 98.4 F Blood Pressure [Right Arm] 123/72 Blood Pressure Mean [Right Arm] 89 02 Sat by Pulse Oximetry 98 97 98 06/20/17 12:00 06/20/17 15:56 06/20/17 19:36 Temperature 99.8 F H 99.3 F 98.2 F Blood Pressure [Right Arm] 131/86 126/74 135/92 Blood Pressure Mean [Right Arm] 101 91 106 02 Sat by Pulse Oximetry 99 97 92 L 06/20/17 21:25 06/21/17 00:00 06/21/17 03:29 Temperature 99.0 F 100.7 F H Blood Pressure [Right Arm] 118/68 143/65 Blood Pressure Mean [Right Arm] 84 91 02 Sat by Pulse Oximetry 92 L 95 93 L 06/21/17 06:09 Temperature Blood Pressure [Right Arm] Blood Pressure Mean [Right Arm] 02 Sat by Pulse Oximetry 99 I & O for Last 24 hours: Intake & Output 06/18/17 06/19/17 06/20/17 06/21/17 11:59 11:59 11:59 11:59 Intake Total 2840 / 2840 0 / 0 5247 / 5247 1366 / 1366 Output Total 1350 / 1350 1720 / 1720 1800 / 1800 2800 / 2800 Balance 1490 / 1490 -1720 / -1720 3447 / 3447 -1434 / -1434 Weight 143 lb 3.996 oz 143 lb 3.996 oz 152 lb 4 oz 152 lb 8 oz - Constitutional no acute distress Comments: awake ; smiles - *Routine Respiratory Exam Comments: scattered rhonchi - *Routine Cardiovascular Exam Present: RRR - *Routine Abdominal Exam Present: ostomy (colostomy) Comments: GT - *Routine Exam Comments: plunkett cath - *Routine Extremities Exam Absent: edema Comments: bilateral foot drop - *Routine Neurological Exam Present: alert unable to determine orientation Assessment and Plan (1) MRSA pneumonia Current visit: Yes Status: Acute Category: Medical Code(s): J15.212 - Pneumonia due to Methicillin resistant Staphylococcus aureus (2) Pseudomonal pneumonia Current visit: Yes Status: Acute Category: Medical Code(s): J15.1 - Pneumonia due to Pseudomonas (3) Hypoxemia Current visit: Yes Status: Resolved Category: Medical Code(s): R09.02 - Hypoxemia (4) Type 2 diabetes mellitus Current visit: Yes Status: Chronic Category: Medical Code(s): E11.9 - Type 2 diabetes mellitus without complications (5) CRF (chronic renal failure) Current visit: Yes
[2017-06-21 11:07] VITALS: PULSE 64; PULSE 67; O2SAT 95
[2017-06-21 12:00] VITALS: BP 134/61; PULSE 71; RESP 16; TEMP 36.4; O2SAT 95
== END 2017-06-21 12:30 | DRG 177 ==
LOC: ER 13:51 → 2ND 15:14
PROVIDERS: Admitting Provider Family Medicine; Emergency Provider Emergency Medicine; PCP Family Medicine; Visit Provider Family Medicine
DX: J15.212 Pneumonia due to Methicillin resistant Staphylococcus aureus (principal); G82.50 Quadriplegia, unspecified; L89.154 Pressure ulcer of sacral region, stage 4; E11.22 Type 2 diabetes mellitus with diabetic chronic kidney disease; R13.10 Dysphagia, unspecified; E87.0 Hyperosmolality and hypernatremia; J15.1 Pneumonia due to Pseudomonas; H91.90 Unspecified hearing loss, unspecified ear; F79 Unspecified intellectual disabilities; G40.909 Epilepsy, unspecified, not intractable, without status epilepticus; R09.02 Hypoxemia; E86.0 Dehydration; M24.50 Contracture, unspecified joint; Z93.1 Gastrostomy status; Z93.3 Colostomy status; Z93.50 Unspecified cystostomy status; Z79.899 Other long term (current) drug therapy; Z74.01 Bed confinement status; Z87.440 Personal history of urinary (tract) infections; Z87.01 Personal history of pneumonia (recurrent); Z83.3 Family history of diabetes mellitus; Z82.49 Family history of ischemic heart disease and other diseases of the circulatory system; Z88.8 Allergy status to other drugs, medicaments and biological substances; Z93.0 Tracheostomy status; Z99.81 Dependence on supplemental oxygen
CPT/HCPCS: 36415; 71045; 80048; 80053; 80200; 80202; 82803; 82962; 83036; 83605; 85007; 85025; 87040; 87070; 87077; 87186; 87205; 87275; 87276; 94640; 94760; 94761; 96365; 96366; 99284; A4623; J0692; J1956; J2543; J3370

== ENCOUNTER 2017-06-26 18:20 | Emergency (ER) | payer MEDICARE, OTHER, SELFPAY ==
[2017-06-26 18:22] VITALS: BMI 22.7
--- NOTE | 2017-06-26 18:23 | XR_ITS ---
XR chest portable HISTORY: ITS.REASON: CONGESTION NOT BETTER ORDERING PHYSICIAN: Jose Cole MD PATIENT AGE: 41 years COMPARISON: 06-19-17 FINDINGS: There is tracheostomy tube present. Increased density involves the right mid and lower lung zone atelectasis or infiltrate slightly worse in the right midlung. Left basilar airspace disease as shown some improvement. Normal heart size. IMPRESSION: 1. No change good position of tracheostomy tube 2. Right lower lobe atelectasis or infiltrate slightly worse in the right midlung with persistent but improved left basilar atelectasis or infiltrate
[2017-06-26 18:27] VITALS: BP 125/71; PULSE 89; RESP 18; TEMP 36.7; O2SAT 96; BMI 19.5
[2017-06-26 19:29] VITALS: BP 125/56; PULSE 76; RESP 16; O2SAT 95
--- NOTE | 2017-06-26 19:35 | HMH.EDSOB ---
ED Disposition Condition on Discharge: Fair - Critical Care Critical Care Time: No <Jose Cole - Last Filed: 06/26/17 19:44> <Juan Daniel Whalen - Last Filed: 06/27/17 00:20> Clinical Impression: Atelectasis of right lung, HCAP (healthcare-associated pneumonia) MRSA pneumonia Qualifiers: Laterality: unspecified laterality Lung location: unspecified part of lung Qualified Code(s): J15.212 - Pneumonia due to Methicillin resistant Staphylococcus aureus Disposition: Home, Self-Care Instructions: Pneumonia-Adult Additional Instructions: resume care Referrals: Juan Daniel Guidry [Primary Care Provider] - Attestation: On 06/26/17, the high probability of a clinically significant, sudden or life threatening deterioration of the following system(s) required my full and direct attention, intervention and personal management. The time I documented below is in addition to time spent performing reported procedures but includes the following listed in this critical care notation. Medical Decision Making - Medical Records Medical records reviewed: Yes: I reviewed the patient's medical records. 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 Reason -: Pt condition <Juan Daniel Whalen - Last Filed: 06/27/17 00:20> Vital Signs: 06/26/17 18:27 06/26/17 19:29 Temperature 98.1 F Temperature Source Oral Pulse Rate [Right Brachial] 89 76 Respiratory Rate 18 16 Blood Pressure [Right Arm] 125/71 125/56 Blood Pressure Mean [Right Arm] 89 79 Blood Pressure Source [Right Arm] Automatic Cuff Automatic Cuff Blood Pressure Position [Right Arm] Supine 02 Sat by Pulse Oximetry 96 95 Oxygen Delivery Method Room Air Room Air - Lab Data Lab Results 06/26/17 20:20: WBC 9.4, RBC 3.31 L, Hgb 8.9 L, Hct 28.8 L, MCV 87.1, MCH 27.0, MCHC 31.0 L, RDW 15.4, Plt Count 279, MPV 9.3, Neut % (Auto) 61.1, Lymph % (Auto) 25.9, [place] % (Auto) 6.4, Eos % (Auto) 6.5, Baso % (Auto) 0.3, Neut # (Auto) 5.7, Lymph # (Auto) 2.4, [place] # (Auto) 0.6, Eos # (Auto) 0.6 H, Baso # (Auto) 0.0 06/26/17 20:20: Sodium 145, Potassium 4.0, Chloride 111 H, Carbon Dioxide 28, Anion Gap 10.0, BUN 20 H, Creatinine 0.68 L, Estimated Creat Clear 112, Estimated GFR 127, Est GFR ( Amer) 154, Glucose 108 H, Calcium 8.6, Total Bilirubin 0.1 L, AST 6 L, ALT 15, Alkaline Phosphatase 85, Total Protein 6.5, Albumin 1.7 L, Globulin 4.8 H, Albumin/Globulin Ratio 0.4 L, Random Vancomycin 25.1 Orders (Tests/Meds): ED MEDICATIONS Discontinued Medications Generic Name Dose Route Start Last Admin Trade Name Freq PRN Reason Stop Dose Admin Vancomycin HCl 1,250 mg 06/26/17 22:30 06/26/17 23:01 Vancomycin 500mg Vial IV 06/26/17 22:31 1,250 mg [facility] Administration Protocol ORDERS Category Date Time Status XR chest portable Stat Exams 06/26/17 18:23 Taken Resp/SOB HPI - General Mode of Arrival: EMS Limitations: No Limitations Description of Symptoms (Recalled from ER Triage Doc. by RN): CONGESTION AND DIFFICULTY BREATHING SINCE RECENTLY DIAGNOSED WITH MRSA PNEUMONIA APPROX 10 DAYS AGO. HAS RECEIVED DAILY VANC AND TOBRAMYCIN PER PHARM/MD REGULATION SINCE WITHOUT IMPROVEMENT. - History of Present Illness MD Complaint: shortness of breath Onset (ago): day(s) (Today after being discharged on June 21.) Severity: moderate Consistency/Duration: constant Relieving factors: nothing Exacerbating factors: nothing Associated symptoms: denies other symptoms Treatment prior to arrival: none <Jose Cole - Last Filed: 06/26/17 19:44> <G
--- NOTE | 2017-06-26 19:39 | ED_ITS ---
ED Disposition Condition on Discharge: Fair - Critical Care Critical Care Time: No <Jose Cole - Last Filed: 06/26/17 19:44> <Juan Daniel Whalen - Last Filed: 06/27/17 00:20> Clinical Impression: Atelectasis of right lung, HCAP (healthcare-associated pneumonia) MRSA pneumonia Qualifiers: Laterality: unspecified laterality Lung location: unspecified part of lung Qualified Code(s): J15.212 - Pneumonia due to Methicillin resistant Staphylococcus aureus Disposition: Home, Self-Care Instructions: Pneumonia-Adult Additional Instructions: resume care Referrals: Juan Daniel Guidry [Primary Care Provider] - Attestation: On 06/26/17, the high probability of a clinically significant, sudden or life threatening deterioration of the following system(s) required my full and direct attention, intervention and personal management. The time I documented below is in addition to time spent performing reported procedures but includes the following listed in this critical care notation. Medical Decision Making - Medical Records Medical records reviewed: Yes: I reviewed the patient's medical records. - Radiology Data #1 Image(s): Chest Image Reviewed: Yes I have reviewed radiologist's interpretation Preliminary Findings: Abnormal (Right lower lobe atelectasis.) - Twin Inquiry Pt receiving controlled substance: No Twin was queried for this patient: No <JoyfilibertoJose - Last Filed: 06/26/17 19:44> - Lab Data Result diagrams: 06/26/17 20:20 06/26/17 20:20 - Physician Consults Physician Consulted: [facility] freezer person dr Reason -: Pt condition <Juan Daniel Whalen - Last Filed: 06/27/17 00:20> Vital Signs: 06/26/17 18:27 06/26/17 19:29 Temperature 98.1 F Temperature Source Oral Pulse Rate [Right Brachial] 89 76 Respiratory Rate 18 16 Blood Pressure [Right Arm] 125/71 125/56 Blood Pressure Mean [Right Arm] 89 79 Blood Pressure Source [Right Arm] Automatic Cuff Automatic Cuff Blood Pressure Position [Right Arm] Supine 02 Sat by Pulse Oximetry 96 95 Oxygen Delivery Method Room Air Room Air - Lab Data Lab Results 06/26/17 20:20: WBC 9.4, RBC 3.31 L, Hgb 8.9 L, Hct 28.8 L, MCV 87.1, MCH 27.0, MCHC 31.0 L, RDW 15.4, Plt Count 279, MPV 9.3, Neut % (Auto) 61.1, Lymph % (Auto ) 25.9, [place] % (Auto) 6.4, Eos % (Auto) 6.5, Baso % (Auto) 0.3, Neut # (Auto) 5.7, Lymph # (Auto) 2.4, [place] # (Auto) 0.6, Eos # (Auto) 0.6 H, Baso # (Auto) 0.0 06/26/17 20:20: Sodium 145, Potassium 4.0, Chloride 111 H, Carbon Dioxide 28, Anion Gap 10.0, BUN 20 H, Creatinine 0.68 L, Estimated Creat Clear 112, Estimated GFR 127, Est GFR ( Amer) 154, Glucose 108 H, Calcium 8.6, Total Bilirubin 0.1 L, AST 6 L, ALT 15, Alkaline Phosphatase 85, Total Protein 6.5, Albumin 1.7 L, Globulin 4.8 H, Albumin/Globulin Ratio 0.4 L, Random Vancomycin 25.1 Orders (Tests/Meds): ED MEDICATIONS Discontinued Medications Generic Name Dose Route Start Last Admin Trade Name Freq PRN Reason Stop Dose Admin Vancomycin HCl 1,250 mg 06/26/17 22:30 06/26/17 23:01 Vancomycin 500mg Vial IV 06/26/17 22:31 1,250 mg [facility] Administration Protocol ORDERS Category Date Time Status XR chest portable Stat Exams 06/26/17 18:23 Taken Resp/SOB HPI - General Mode of Arrival: EMS
--- NOTE | 2017-06-26 20:17 | PC.NURSE ---
FEMORAL STICK FOR BLOOD DRAW
[2017-06-26 20:30] LABS: Basophils % 0.3 % (0.1-2.0); Eosinophils # 0.6 K/mm3 (0.0-0.4); Eosinophils % 6.5 % (0.1-12.0); Hemoglobin 8.9 g/dL (14.1-18.0); Lymphocytes # 2.4 K/mm3 (0.7-4.5); Lymphocytes % 25.9 K/mm3 (10-50); Mean Corpuscular Volume 87.1 fl (80-94); Mean Platelet Volume 9.3 fl (7.4-10.4); Monocytes # 0.6 K/mm3 (0.1-1.0); Monocytes % 6.4 % (1.7-9.3); Neutrophils # 5.7 K/mm3 (1.8-7.8); Neutrophils % 61.1 % (37.0-80.0); Platelet Count 279 K/mm3 (142-424); Red Blood Count 3.31 M/mm3 (4.60-6.20); Red Cell Distribution Width 15.4 % (11.5-17.5); White Blood Count 9.4 K/mm3 (4.8-10.8)
[2017-06-26 20:32] LABS: Hematocrit 28.8 % (42.0-52.0)
[2017-06-26 20:44] LABS: Alanine Aminotransferase 15 U/L (12-78); Albumin Level 1.7 gm/dL (3.4-5.0); Albumin/Globulin Ratio 0.4 (1.1-1.8); Alkaline Phosphatase 85 U/L (46-116); Aspartate Amino Transferase 6 U/L (15-37); Bilirubin,Total 0.1 mg/dL (0.2-1.0); Blood Urea Nitrogen 20 mg/dL (7-18); Calcium 8.6 mg/dL (8.5-10.1); Carbon Dioxide 28 mmol/L (21.0-32.0); Chloride 111 mmol/L (98-107); Creatinine Clearance Estimated 112 mL/min (0-300); Creatinine,Serum 0.68 mg/dL (0.70-1.30); Estimated Glomerular Filt Rate 127 ml/min (>60); GFR (African American) 154 ML/MIN (>60); Globulin 4.8 gm/dl (1.3-3.2); Glucose 108 mg/dL (74-106); Sodium 145 mmol/L (136-145); Total Protein,Serum 6.5 gm/dL (6.4-8.2)
[2017-06-26 20:52] LABS: Vancomycin,Random 25.1 ug/mL
--- NOTE | 2017-06-26 22:30 | PC.NURSE ---
ON PHONE WITH PHARMACY
[2017-06-27 00:42] VITALS: BP 119/66; PULSE 81; RESP 16; O2SAT 94
[2017-06-27 05:24] VITALS: BP 123/61; PULSE 81; RESP 16; TEMP 37.1
== END 2017-06-27 05:25 | disposition home or self-care (01) ==
PROVIDERS: Emergency Provider Emergency Medicine; PCP Family Medicine
DX: J15.212 Pneumonia due to Methicillin resistant Staphylococcus aureus (principal); J98.11 Atelectasis; J44.9 Chronic obstructive pulmonary disease, unspecified; D64.9 Anemia, unspecified; R56.9 Unspecified convulsions; E11.9 Type 2 diabetes mellitus without complications; F79 Unspecified intellectual disabilities; Z88.8 Allergy status to other drugs, medicaments and biological substances; Z79.899 Other long term (current) drug therapy
CPT/HCPCS: 71045; 80053; 80202; 85025; 96365; 99284; J3370

== ENCOUNTER 2017-07-02 10:49 | Emergency (ER) | payer MEDICARE, OTHER, SELFPAY ==
[2017-07-02 10:50] VITALS: BP 110/65; PULSE 120; RESP 20; TEMP 36.7; O2SAT 94; BMI 22.6
--- NOTE | 2017-07-02 11:03 | XR_ITS ---
XR chest AP HISTORY: ITS.REASON: sob ORDERING PHYSICIAN: Yarelis Albright MD PATIENT AGE: 41 years COMPARISON: FINDINGS: There is tracheostomy tube present in good position. Increasing opacification is present involving the right mid and lower lung zone consistent with worsening atelectasis and/or infiltrate with elevated right hemidiaphragm. Left lung is clear. Normal heart size. IMPRESSION: Increasing parenchymal opacification of the right lung consistent with worsening atelectasis and/or infiltrate. Tracheostomy tube in good position
[2017-07-02 11:05] VITALS: PULSE 120; O2SAT 93
[2017-07-02 11:16] LABS: Adenovirus,PCR Not Detected (NotDetected); Bordetella Pertussis Not Detected (NotDetected); Chlamydophila Pneumoniae, PCR Not Detected (NotDetected); Coronavirus 229E Not Detected (NotDetected); Coronavirus NL63 Not Detected (NotDetected); Coronavirus OC43 Not Detected (NotDetected); Coronovirus HKU1,PCR Not Detected (NotDetected); Human Metapneumovirus Not Detected (NotDetected); Influenza A, PCR Not Detected (NotDetected); Influenza AH1, 2009 Not Detected (NotDetected); Influenza AH1, PCR Not Detected (NotDetected); Influenza AH3,PCR Not Detected (NotDetected); Influenza B, PCR Not Detected (NotDetected); Mycoplasma Pneumoniae, PCR Not Detected (NotDected); Parainfluenza 1, PCR Not Detected (NotDetected); Parainfluenza 2, PCR Not Detected (NotDetected); Parainfluenza 3, PCR Not Detected (NotDetected); Parainfluenza 4, PCR Not Detected (NotDetected); Respiratory Syncytial Virus Not Detected (NotDetected); Rhinovirus/Enterovirus Not Detected (NotDetected)
[2017-07-02 11:23] LABS: Basophils # 0.1 K/mm3 (0-0.2); Basophils % 0.4 % (0.1-2.0); Eosinophils # 0.2 K/mm3 (0.0-0.4); Eosinophils % 1.4 % (0.1-12.0); Hematocrit 37.5 % (42.0-52.0); Hemoglobin 11.9 g/dL (14.1-18.0); Lymphocytes # 2.6 K/mm3 (0.7-4.5); Lymphocytes % 15.4 K/mm3 (10-50); Mean Corpuscular HGB Conc 31.9 g/dL (31.8-35.4); Mean Corpuscular Hemoglobin 27.4 pg (27.0-31.2); Mean Corpuscular Volume 85.9 fl (80-94); Mean Platelet Volume 9.6 fl (7.4-10.4); Monocytes % 6.1 % (1.7-9.3); Neutrophils # 12.9 K/mm3 (1.8-7.8); Neutrophils % 76.8 % (37.0-80.0); Platelet Count 445 K/mm3 (142-424); Red Blood Count 4.36 M/mm3 (4.60-6.20); Red Cell Distribution Width 15.7 % (11.5-17.5); White Blood Count 16.7 K/mm3 (4.8-10.8)
[2017-07-02 11:29] LABS: Microscopic, Urine URINE MICROSCOPIC (MICROSCOPIC)
[2017-07-02 11:32] LABS: Appearance,Urine CLEAR (Clear); Bilirubin,Urine Negative (Negative); Blood, Urine 2+ (Negative); Color,Urine YELLOW (Yellow); Glucose,Urine (UA) Negative (Negative); Ketones,Urine Negative (Negative); Leukocyte Esterase,Urine Negative (Negative); Nitrate,Urine Negative (Negative); Protein,Urine 2+ (Negative); Specific Gravity, Urine 1.015 (1.005-1.030); Urobilinogen,Urine 0.2 EU/dl (0.2)
[2017-07-02 11:33] LABS: Occult Blood,Stool Negative (Negative)
[2017-07-02 11:41] LABS: Lactic Acid 2.1 mmol/L (0.4-2.0)
[2017-07-02 11:48] LABS: Bacteria,Urine 2+ /lpf; Mucus,Urine 1+ /lpf; WBC,Urine Occasional #/hpf (0-3)
[2017-07-02 11:49] LABS: Alanine Aminotransferase 17 U/L (12-78); Albumin Level 2.2 gm/dL (3.4-5.0); Albumin/Globulin Ratio 0.4 (1.1-1.8); Alkaline Phosphatase 103 U/L (46-116); Amylase 67 U/L (25-125); Anion Gap 13.3 mEq/L (5-15); Aspartate Amino Transferase 9 U/L (15-37); Bilirubin,Total 0.2 mg/dL (0.2-1.0); Blood Urea Nitrogen 26 mg/dL (7-18); Calcium 9.1 mg/dL (8.5-10.1); Carbon Dioxide 27 mmol/L (21.0-32.0); Chloride 103 mmol/L (98-107); Creatinine Clearance Estimated 79 mL/min (0-300); Creatinine,Serum 0.93 mg/dL (0.70-1.30); Estimated Glomerular Filt Rate 89 ml/min (>60); GFR (African American) 107 ML/MIN (>60); Globulin 5.6 gm/dl (1.3-3.2); Glucose 188 mg/dL (74-106); Potassium 4.3 mmoL/L (3.5-5.1); Sodium 139 mmol/L (136-145); Total Protein,Serum 7.8 gm/dL (6.4-8.2)
[2017-07-02 11:49] LABS: Hyaline Casts,Urine Occasional #/lpf (0)
[2017-07-02 11:50] LABS: CKMB Relative Index 1.7 U/L (0-4.0); Creatine Kinase 30 U/L (39-308); Creatine Kinase MB < 0.5 mg/ml (0.0-3.6); Lipase 138 u/L (73-393); Troponin I < 0.02 ng/ml (0.00-0.06)
[2017-07-02 11:58] LABS: MANUAL DIFFERENTIAL MANUAL DIFFERENTIAL (MANUAL DIFF)
--- NOTE | 2017-07-02 12:08 | HMH.EDGENADL ---
ED Disposition Clinical Impression: Pneumonia Qualifiers: Pneumonia type: aspiration pneumonia Aspiration pneumonia type: unspecified Laterality: right Lung location: lower lobe of lung Qualified Code(s): J69.0 - Pneumonitis due to inhalation of food and vomit Disposition: Home, Self-Care Condition on Discharge: Fair Instructions: DI for Gastrointestinal Bleeding, Pneumonia-Adult Additional Instructions: Send back to [place] with Clindamycin, Vancomycin, Ciproand lactobacillus Referrals: Juan Daniel Guidry [Primary Care Provider] - Time of Disposition: 16:34 - Critical Care Critical Care Time: No Attestation: On 07/02/17, the high probability of a clinically significant, sudden or life threatening deterioration of the following system(s) required my full and direct attention, intervention and personal management. The time I documented below is in addition to time spent performing reported procedures but includes the following listed in this critical care notation. Medical Decision Making - Medical Records Medical records reviewed: Yes: I reviewed the patient's medical records. Vital Signs: 07/02/17 10:50 07/02/17 11:05 07/02/17 14:14 Temperature 98.1 F 98.3 F Temperature Source Rectal Oral Pulse Rate 120 H Pulse Rate [Right Brachial] 120 H 108 H Respiratory Rate 20 18 Blood Pressure [Right Arm] 110/65 124/79 Blood Pressure Mean [Right Arm] 80 94 Blood Pressure Source [Right Arm] Automatic Cuff Automatic Cuff Blood Pressure Position [Right Arm] Sitting Sitting 02 Sat by Pulse Oximetry 94 L 93 L 98 Oxygen Delivery Method Non-Rebreather Trach Collar Room Air Oxygen Flow Rate (LPM) 5 - Lab Data Lab results reviewed: Yes: I reviewed the patient's lab results. Lab Results 07/02/17 10:53: Chlamy pneumoniae PCR Not detected, Adenovirus (PCR) Not detected, B.parapertussis DNA PCR Not detected, Coronavirus OC43 (PCR) Not detected, Coronavirus HKU1 (PCR) Not detected, Coronavirus 229E (PCR) Not detected, Coronavirus NL63 (PCR) Not detected, Human Metapneumovir PCR Not detected, Influenza A (H1) PCR Not detected, Influ A (H1N1/09) PCR Not detected, Influenza A (H3) PCR Not detected, Influenza Type A (PCR) Not detected, Influenza Type B (PCR) Not detected, M. pneumoniae (PCR) Not detected, Parainfluenza 1 (PCR) Not detected, Parainfluenza 2 (PCR) Not detected, Parainfluenza 3 (PCR) Not detected, Parainfluenza 4 (PCR) Not detected, RSV (PCR) Not detected, Entero/Rhino (PCR) Not detected 07/02/17 11:05: WBC 16.7 H, RBC 4.36 L, Hgb 11.9 L, Hct 37.5 L, MCV 85.9, MCH 27.4, MCHC 31.9, RDW 15.7, Plt Count 445 H, MPV 9.6, Neut % (Auto) 76.8, Lymph % (Auto) 15.4, [place] % (Auto) 6.1, Eos % (Auto) 1.4, Baso % (Auto) 0.4, Neut # (Auto) 12.9 H, Lymph # (Auto) 2.6, [place] # (Auto) 1.0, Eos # (Auto) 0.2, Baso # (Auto) 0.1, Total Counted 100, Neutrophils % (Manual) 74, Lymphocytes % (Manual) 23, Monocytes % (Manual) 1 L, Eosinophils % (Manual) 2, Platelet Estimate Moderate increase, RBC Morphology Normal 07/02/17 11:05: Sodium 139, Potassium 4.3, Chloride 103, Carbon Dioxide 27, Anion Gap 13.3, BUN 26 H, Creatinine 0.93, Estimated Creat Clear 79, Estimated GFR 89, Est GFR ( Amer) 107, Glucose 188 H, Calcium 9.1, Total Bilirubin 0.2, AST 9 L, ALT 17, Alkaline Phosphatase 103, Total Protein 7.8, Albumin 2.2 L, Globulin 5.6 H, Albumin/Globulin Ratio 0.4 L, Amylase 67 07/02/17 11:05: Total Creatine Kinase 30 L, CK-MB (CK-2) < 0.5, CK-MB (CK-2) Rel Index 1.7, Troponin I < 0.02, Lipase 138 07/02/17 11:05: Lactic Acid 2.1 H 07/02/17 11:27: Stool Occult Blood Negative 07/02/17 11:27: Urine Color Yellow, Urine Appearance Clear, Urine pH 7.0, Ur Specific [place] 1.015, Urine Protein 2+, Urine Glucose (UA) Negative, Urine Ketones Negative, Urine Blood 2+, Urine Nitrate Negative, Urine Bilirubin Negative, Urine Urobilinogen 0.2, Ur Leukocyte Esterase Negative, Urine RBC 5-10, Urine WBC Occasional, Ur Squamous Epith Cells 5-10, Urine Bacteria 2+, Hyaline Casts Oc
--- NOTE | 2017-07-02 12:10 | CT_ITS ---
CT abdomen pelvis wo con CLINICAL INDICATION: Abdominal pain with GI bleeding, coffee-ground emesis ITS.REASON: GI bleeding ORDERING PHYSICIAN: Yarelis Albright MD PATIENT AGE: 41 years COMPARISON: None TECHNIQUE: Axial images obtained with sagittal and coronal reformats. PROCEDURE: Oral Contrast: None IV Contrast: None . FINDINGS: There are atelectatic changes in the right lung base with elevated right hemidiaphragm. There is generalized motion artifact which obscures fine detail. There is bilateral gynecomastia. Small right pleural effusion PEG tube is present. The liver, gallbladder, spleen, adrenal glands, pancreas, and kidneys have an unremarkable unenhanced CT appearance. No intestinal obstruction or free air is evident. There is a left lower quadrant ileostomy. Jay catheter is present. A small amount of gas is present in urinary bladder which may be either thinning. No evidence of diverticulitis or appendicitis. No acute bony anomalies. IMPRESSION: 1. Limited study secondary to motion artifact and lack of IV and oral contrast. 2. No definite acute finding. 3. PEG tube in good position. Jay catheter also present. Left lower quadrant ileostomy noted. No evidence of intestinal obstruction
--- NOTE | 2017-07-02 12:12 | ED_ITS ---
ED Disposition Clinical Impression: Pneumonia Qualifiers: Pneumonia type: aspiration pneumonia Aspiration pneumonia type: unspecified Laterality: right Lung location: lower lobe of lung Qualified Code(s): J69.0 - Pneumonitis due to inhalation of food and vomit Disposition: Home, Self-Care Condition on Discharge: Fair Instructions: DI for Gastrointestinal Bleeding, Pneumonia-Adult Additional Instructions: Send back to [place] with Clindamycin, Vancomycin, Ciproand lactobacillus Referrals: Juan Daniel Guidry [Primary Care Provider] - Time of Disposition: 16:34 - Critical Care Critical Care Time: No Attestation: On 07/02/17, the high probability of a clinically significant, sudden or life threatening deterioration of the following system(s) required my full and direct attention, intervention and personal management. The time I documented below is in addition to time spent performing reported procedures but includes the following listed in this critical care notation. Medical Decision Making - Medical Records Medical records reviewed: Yes: I reviewed the patient's medical records. Vital Signs: 07/02/17 10:50 07/02/17 11:05 07/02/17 14:14 Temperature 98.1 F 98.3 F Temperature Source Rectal Oral Pulse Rate 120 H Pulse Rate [Right Brachial] 120 H 108 H Respiratory Rate 20 18 Blood Pressure [Right Arm] 110/65 124/79 Blood Pressure Mean [Right Arm] 80 94 Blood Pressure Source [Right Arm] Automatic Cuff Automatic Cuff Blood Pressure Position [Right Arm] Sitting Sitting 02 Sat by Pulse Oximetry 94 L 93 L 98 Oxygen Delivery Method Non-Rebreather Trach Collar Room Air Oxygen Flow Rate (LPM) 5 - Lab Data Lab results reviewed: Yes: I reviewed the patient's lab results. Lab Results 07/02/17 10:53: Chlamy pneumoniae PCR Not detected, Adenovirus (PCR) Not detected, B.parapertussis DNA PCR Not detected, Coronavirus OC43 (PCR) Not detected, Coronavirus HKU1 (PCR) Not detected, Coronavirus 229E (PCR) Not detected, Coronavirus NL63 (PCR) Not detected, Human Metapneumovir PCR Not detected, Influenza A (H1) PCR Not detected, Influ A (H1N1/09) PCR Not detected , Influenza A (H3) PCR Not detected, Influenza Type A (PCR) Not detected, Influenza Type B (PCR) Not detected, M. pneumoniae (PCR) Not detected, Parainfluenza 1 (PCR) Not detected, Parainfluenza 2 (PCR) Not detected, Parainfluenza 3 (PCR) Not detected, Parainfluenza 4 (PCR) Not detected, RSV (PCR ) Not detected, Entero/Rhino (PCR) Not detected 07/02/17 11:05: WBC 16.7 H, RBC 4.36 L, Hgb 11.9 L, Hct 37.5 L, MCV 85.9, MCH 27.4, MCHC 31.9, RDW 15.7, Plt Count 445 H, MPV 9.6, Neut % (Auto) 76.8, Lymph % (Auto) 15.4, [place] % (Auto) 6.1, Eos % (Auto) 1.4, Baso % (Auto) 0.4, Neut # ( Auto) 12.9 H, Lymph # (Auto) 2.6, [place] # (Auto) 1.0, Eos # (Auto) 0.2, Baso # ( Auto) 0.1, Total Counted 100, Neutrophils % (Manual) 74, Lymphocytes % (Manual) 23, Monocytes % (Manual) 1 L, Eosinophils % (Manual) 2, Platelet Estimate Moderate increase, RBC Morphology Normal 07/02/17 11:05: Sodium 139, Potassium 4.3, Chloride 103, Carbon Dioxide 27, Anion Gap 13.3, BUN 26 H, Creatinine 0.93, Estimated Creat Clear 79, Estimated GFR 89, Est GFR ( Amer) 107, Glucose 188 H, Calcium 9.1, Total Bilirubin 0.2, AST 9 L, ALT 17, Alkaline Phosphatase 103, Total Protein 7.8, Albumin 2.2 L , Globulin 5.6 H, Albumin/Globulin Ratio 0.4 L, Amylase 67 07/02/17 11:05: Total Creatine Kinase 30 L, CK-MB (CK-2) < 0.5, CK-MB (CK-2) Rel Index 1.7, Troponin I < 0.02, Lipase 138 07/02/17 11:05: Lactic Acid 2.1 H 07/02/17 1
[2017-07-02 12:53] LABS: Eosinophils % 2 % (0-3); Lymphocytes % 23 % (10-50); Monocytes % 1 % (2-9); Neutrophils % 74 % (42-76); Platelet Estimate Moderate Increase; Total Cells Counted 100
[2017-07-02 12:54] LABS: RBC Morphology Normal
[2017-07-02 14:14] VITALS: BP 124/79; PULSE 108; RESP 18; TEMP 36.8; O2SAT 98
[2017-07-02 15:13] LABS: Reflex Lactic Add Lactic Reflex
[2017-07-02 15:52] LABS: Lactic Acid Follow Up (RFLX 1) 1.7 (0.4-2.0)
[2017-07-02 17:19] VITALS: BP 121/70; PULSE 80; RESP 18; TEMP 36.8
== END 2017-07-02 17:18 | disposition home or self-care (01) ==
PROVIDERS: Emergency Provider General Practice; PCP Family Medicine
DX: J69.0 Pneumonitis due to inhalation of food and vomit (principal); E11.9 Type 2 diabetes mellitus without complications; G40.909 Epilepsy, unspecified, not intractable, without status epilepticus; D64.9 Anemia, unspecified; Z79.899 Other long term (current) drug therapy; Z88.8 Allergy status to other drugs, medicaments and biological substances; F17.210 Nicotine dependence, cigarettes, uncomplicated; F79 Unspecified intellectual disabilities; Z93.1 Gastrostomy status; H91.90 Unspecified hearing loss, unspecified ear; J98.11 Atelectasis; J15.212 Pneumonia due to Methicillin resistant Staphylococcus aureus
CPT/HCPCS: 36415; 71045; 74176; 80053; 81001; 82150; 82272; 82550; 82553; 83605; 83690; 84484; 85007; 85025; 87040; 87086; 87486; 87581; 87633; 87798; 93005; 96365; 99282; G0328

== ENCOUNTER 2017-08-15 12:32 | Inpatient (IN) ==
--- NOTE | 2017-08-15 13:04 | Emergency Department Note ---
ED Disposition Clinical Impression: Atrial fib/flutter, transient, Hypernatremia Disposition: Still a Patient Condition on Discharge: Good Referrals: Juan Daniel Guidry [Primary Care Provider] - - Critical Care Critical Care Time: No Attestation: On 08/15/17, the high probability of a clinically significant, sudden or life threatening deterioration of the following system(s) required my full and direct attention, intervention and personal management. The time I documented below is in addition to time spent performing reported procedures but includes the following listed in this critical care notation. Medical Decision Making - Twin Inquiry Pt receiving controlled substance: No Twin was queried for this patient: No Vital Signs: 08/15/17 12:52 08/15/17 13:07 08/15/17 13:39 Temperature 99.1 F Temperature Source Axillary Pulse Rate Pulse Rate [Right Radial] 81 211 H 175 H Respiratory Rate 26 H Blood Pressure [Right Arm] 148/114 120/69 118/72 Blood Pressure Mean [Right Arm] 125 86 87 Blood Pressure Source [Right Arm] Automatic Cuff Blood Pressure Position [Right Arm] Supine 02 Sat by Pulse Oximetry 90 L Oxygen Delivery Method Non-Rebreather 08/15/17 13:47 08/15/17 13:52 08/15/17 14:00 Temperature Temperature Source Pulse Rate Pulse Rate [Right Radial] 166 H 183 H 186 H Respiratory Rate Blood Pressure [Right Arm] 102/77 110/64 89/57 Blood Pressure Mean [Right Arm] 85 79 67 Blood Pressure Source [Right Arm] Blood Pressure Position [Right Arm] 02 Sat by Pulse Oximetry Oxygen Delivery Method 08/15/17 14:04 08/15/17 14:15 08/15/17 14:54 Temperature 100.7 F H Temperature Source Rectal Pulse Rate 188 H Pulse Rate [Right Radial] 168 H 176 H Respiratory Rate Blood Pressure [Right Arm] 108/51 109/55 Blood Pressure Mean [Right Arm] 70 73 Blood Pressure Source [Right Arm] Automatic Cuff Blood Pressure Position [Right Arm] Supine 02 Sat by Pulse Oximetry 99 Oxygen Delivery Method Trach Collar 08/15/17 15:01 08/15/17 15:17 08/15/17 15:54 Temperature Temperature Source Pulse Rate Pulse Rate [Right Radial] 182 H 154 H 73 Respiratory Rate Blood Pressure [Right Arm] 112/61 84/66 106/74 Blood Pressure Mean [Right Arm] 78 72 84 Blood Pressure Source [Right Arm] Automatic Cuff Blood Pressure Position [Right Arm] Supine 02 Sat by Pulse Oximetry 99 Oxygen Delivery Method Trach Collar - Lab Data Lab Results 08/15/17 12:45: Lactic Acid 1.6 08/15/17 13:02: WBC 13.3 H, RBC 4.36 L, Hgb 12.1 L, Hct 39.3 L, MCV 90.2, MCH 27.8, MCHC 30.8 L, RDW 16.9, Plt Count 361, MPV 9.7, Neut % (Auto) 76.3, Lymph % (Auto) 16.5, [place] % (Auto) 6.2, Eos % (Auto) 0.5, Baso % (Auto) 0.5, Neut # ( Auto) 10.2 H, Lymph # (Auto) 2.2, [place] # (Auto) 0.8, Eos # (Auto) 0.1, Baso # ( Auto) 0.1 08/15/17 13:02: Sodium 148 H, Potassium 4.7, Chloride 111 H, Carbon Dioxide 29, Anion Gap 8.3, BUN 44 H, Creatinine 0.98, Estimated Creat Clear 72, Estimated GFR 83, Est GFR ( Amer) 101, Glucose 176 H, Calcium 9.6, Total Bilirubin 0.3, AST 13 L, ALT 16, Alkaline Phosphatase 101, Total Protein 8.2, Albumin 2.5 L, Globulin 5.7 H, Albumin/Globulin Ratio 0.4 L, Vancomycin Trough 0.1 L 08/15/17 13:02: Total Creatine Kinase 23 L, CK-MB (CK-2) < 0.5, CK-MB (CK-2) Rel Index 2.2, Troponin I < 0.02 08/15/17 13:02: Magnesium 2.2, Total Valproic Acid 18.8 L Result diagrams: 08/15/17 13:02 08/15/17 13:02 Orders (Tests/Meds): ED MEDICATIONS Generic Name Dose Route Start Last Admin Trade Name Freq PRN Reason Stop Dose Admin Diltiazem HCl 100 mg/ Sodium 100 mls @ 5 mls/hr 08/15/17 13:42 08/15/17 13:36 Chloride IV 09/14/17 13:41 5 mls/hr .Q20H JENNIFER Administration Protocol Discontinued Medications Generic Name Dose Route Start Last Admin Trade Name Leilani PRN Reason Stop Dose Admin Adenosine 6 mg 08/15/17 13:08 08/15/17 13:10 Adenosine 6mg/2ml Vial IV 08/15/17 13:09 6 mg ONCE ONE Administration Adenosine 12 mg 08/15/17 13:19 08/15/17 13:15 Adenosine 6mg/2ml Vial IV 08/15/17 13:20 12 mg ONCE ONE Administration Albuterol/Ipratropium 3 ml 08/15/17 13:07 08/15/17 13:54 Duoneb 3ml Neb 08/15/17 13:08 Not Given ONCE ONE Bisoprolol Fumarate 10 mg 08/16/17 14:32 Zebeta 5mg Tablet PO 08/16/17 14:33 ONCE ONE Bisoprolol Fumarate 10 mg 08/15/17 14:34 08/15/17 14:51 Zebeta 5mg Tablet PO 08/15/17 14:35 10 mg ONCE ONE Administration Diltiazem HCl 100 mg 08/15/17 13:26 08/15/17 13:54 Cardizem 100mg Adv IV 08/15/17 13:27 Not Given ONCE ONE Diltiazem HCl 10 mg 08/15/17 13:27 08/15/17 13:30 Cardizem 25mg/5ml Vial IV 08/15/17 13:28 10 mg ONCE ONE Administration Diltiazem HCl 90 mg 08/15/17 15:59 Cardizem 30mg Tablet PO 08/15/17 16:00 ONCE ONE Sodium Chloride 500 mls @ 999 mls/hr 08/15/17 15:30 Sod Chlor 0.9% 1000ml Bag IV 08/15/17 16:00 .Q31M [facility] Levalbuterol HCl 1.25 mg 08/15/17 13:53 08/15/17 14:03 Xopenex 1.25mg/3ml Neb 08/15/17 13:54 1.25 mg ONCE ONE Administration Nicardipine HCl 10 mg 08/15/17 13:26 08/15/17 13:54 Cardene Iv 25mg/10ml Vial IV 08/15/17 13:27 Not Given ONCE ONE ORDERS Category Date Time Status Blood Culture Stat Micro 08/15/17 13:42 Ordered Sputum Culture & Gram Stain Stat Micro 08/15/17 12:55 Results Arterial Blood Gas Stat RT 08/15/17 13:07 Ordered ECG Request by /Juice Stat Y 08/15/17 13:07 Ordered - Radiology Data #1 Image(s): Chest Image Reviewed: Yes I reviewed the patient's radiology image, Yes I have reviewed radiologist's interpretation Preliminary Findings: Abnormal Chest x-ray shows marked improvement from prior chest x-rays. Persistent chronic changes with right elevation hemidiaphragm. No congestive heart failure. - ECG Data Tracing #2 Second EKG is atrial fibrillation 1 49/min. ECG initial impression date: 08/15/17 Tracing #3 Repeat EKG at 1532 patient converted to normal sinus 77/min ECG initial impression date: 08/15/17 Medical Decision Narrative: 1300 on arrival the patient was found to be in SVT please see my notes from [facility] he was treated with adenosine 6 mg and 12 and he returned it back to 200 bpm of SVT. His breakthrough he was in atrial flutter and atrial fibrillation with rapid ventricular response. He started on a Cardizem bolus and IV drip. My discussion with Dr. Mcnulty the assistant librarian started the patient on bisoprolol 10 mg per feeding tube twice daily. Despite of all the above the patient seems in no respiratory distress was alert all the time and looked his normal. After receiving bisoprolol per feeding tube and increasing his Cardizem to 12 mg an hour the patient converted to normal sinus rhythm 77/min with nonspecific T-wave changes. Pressure started decreasing to the 80s the Cardizem was decreased to 10 mg a later to [address] Sharp who is on for unassigned agreed to admit the patient and recommended to start Cardizem 90 mg 4 times daily continue bisoprolol 10 mg twice daily. Resp/SOB HPI - General Chief Complaint: Upper Respiratory Infection Stated Complaint: TRACH CONGESTION Time Seen by Provider: 08/15/17 13:00 - History of Present Illness 41 years old white male well known to me from traumatic brain injury tracheostomy and prior long-term vent unit at [place]. I seen him in the ED for 2 prior episodes for aspiration pneumonia and MRSA pneumonia where he was admitted and received antibiotic through a PICC line including Vanco. Today the long term contacted the ER regarding the transfer from [facility], due to low saturation in the 80s, hypotension, lung congestion and purulent discharge from the tracheostomy opening. On arrival to the ED the patient had sat in the lower 90s, blood pressure was 140/110 mmhg. HR 202/MIN, his rhythm on the monitor was in SVT he was given adenosine 6 mg through the PICC line was reduced to atrial flutter and returned back to 200 SVT he was given 12 of adenosine IV and his rate was reduced decreased to atrial fibrillation with rapid ventricular response at 149 and then returned back to 200 of SVT. I gave orders to the nursing staff to start on Cardizem bolus and Cardizem drip. I contacted my assistant librarian Dr. Mcnutly who recommended to start him on oral bisoprolol 10 mg p.o. twice daily MD Complaint: shortness of breath, cough Severity: moderate Consistency/Duration: constant Relieving factors: oxygen, bronchodilators Exacerbating factors: nothing Known history of: COPD, recurrent pneumonia, other (Tracheostomy.) Associated symptoms: cough, sputum production Treatment prior to arrival: oxygen, bronchodilator - Related Data Home oxygen amount: 4 liters Home Medications Medication Instructions Recorded Confirmed ALPRAZolam [Xanax 1mg tab] 1 mg G-TUBE Q8 06/15/17 06/15/17 Acetaminophen [Tylenol] 650 mg G-TUBE Q6HP PRN 06/15/17 06/15/17 Arginine/Glutamine/Calcium Hmb 1 each G-TUBE TID 06/15/17 06/15/17 [Jonathan Packet] Baclofen 20 mg G-TUBE TID 06/15/17 06/15/17 Docusate Sodium [Docusate Sod 50 mg G-TUBE BID 06/15/17 06/15/17 Liquid 100mg/10mL udc] Famotidine [Pepcid 20mg Tablet] 20 mg G-TUBE BID 06/15/17 06/15/17 Lactose-Reduced Food/Fiber 1,000 ml PO CONT 06/15/17 06/15/17 [Isosource 1.5 Brandon Tube Feed Lq] Polyethylene Glycol 3350 [Miralax 17 gm G-TUBE DAILY PRN 06/15/17 06/15/17 17gm Packet] Protein Supplement [Prosource] 1 pack G-TUBE DAILY 06/15/17 06/15/17 Sennosides [Senna] 8.6 mg G-TUBE BID 06/15/17 06/15/17 Thiamine HCl 100 mg G-TUBE BID 06/15/17 06/15/17 Valproic Acid (As Sodium Salt) 250 mg G-TUBE TID 06/15/17 06/15/17 [Depakene syrup 250mg/5mL cherelle UDC] Vit B Cmplx 3/Folic AC/C/Biot 1 each G-TUBE DAILY 06/15/17 06/15/17 [Syeda-Byron Rx Tablet] levETIRAcetam [Keppra 500mg tablet] 1,000 mg G-TUBE BID 06/15/17 06/15/17 levOCARNitine tartrate 1,000 mg G-TUBE TID 06/15/17 06/15/17 [l-Carnitine] risperiDONE [Risperdal 0.5mg 0.5 mg G-TUBE BID 06/15/17 06/15/17 tablet] Previous Rx's Medication Instructions Recorded Ciprofloxacin HCl [Ciprofloxacin 500 mg PO BID #14 tab 06/21/17 500mg Tab] Tobramycin Sulfate [Tobramycin 420 mg IV 1100 #7 ml 06/21/17 80mg/2mL Vial] Vancomycin HCl [Vancomycin 1000mg 1,250 mg IV Q12H #14 vial 06/21/17 Vial] Allergies Allergy/AdvReac Type Severity Reaction Status Date / Time haloperidol [From Haldol] Allergy Verified 08/15/17 13:08 [facility] History I have reviewed the patient's past medical history: Yes Medical History: Reports:: Diabetes Mellitus Type 2, Seizures, Urinary Tract Infection Denies:: Chronic Obstructive Pulmonary Disease (COPD) Other Medical History: Reports: Anemia Comment: wound debridment - Social History Smoking Status: Current every day smoker Alcohol Intake: never Occupational Status: disabled Housing: long term Household Members: other Family Hx:: Diabetes, Heart Attack ROS Obtained: Yes All systems reviewed & no additional complaints Physical Exam - General General appearance: alert, in no apparent distress - Head Head exam: normal inspection (History of traumatic head injury.) - Eye Eye exam: Present: normal appearance, PERRL, EOMI - ENT ENT exam: Present: normal exam, normal oropharynx, mucous membranes moist, TM's normal bilaterally, normal external ear exam - Neck Neck exam: Present: other (Tracheostomy in place) - Chest Chest inspection: Present: normal inspection, symmetric chest wall rise, other - Respiratory Respiratory exam: Present: normal lung sounds bilaterally, wheezes (Bilateral coarse rhonchi worse anteriorly.) - Cardiovascular Cardiovascular exam: Present: tachycardia, other (Patient is in SVT please see my notes from [facility]. ). Absent: JVD - Abdominal Exam Abdominal exam: Present: soft, normal bowel sounds. Absent: distention, tenderness, guarding, rebound, rigidity - Extremities Exam Extremities exam: Present: normal inspection, full ROM, normal capillary refill. Absent: calf tenderness - Back Exam Back exam: Present: normal inspection. Absent: tenderness - Neurological Exam Neurological exam: Present: alert, CN II-XII intact, other (The patient has a history of quadriparesis he is unchanged from prior ED visits.) - Psychiatric Psychiatric exam: Present: normal affect, normal mood - Skin Skin exam: Present: warm, dry, intact, normal color - Lymphatic Lymphatic Findings: no adenopathy
[2017-08-15 13:15] LABS: Basophils # 0.1 K/mm3 (0-0.2); Basophils % 0.5 % (0.1-2.0); Eosinophils # 0.1 K/mm3 (0.0-0.4); Eosinophils % 0.5 % (0.1-12.0); Hematocrit 39.3 % (42.0-52.0); Hemoglobin 12.1 g/dL (14.1-18.0); Lymphocytes # 2.2 K/mm3 (0.7-4.5); Lymphocytes % 16.5 K/mm3 (10-50); Mean Corpuscular HGB Conc 30.8 g/dL (31.8-35.4); Mean Corpuscular Hemoglobin 27.8 pg (27.0-31.2); Mean Corpuscular Volume 90.2 fl (80-94); Mean Platelet Volume 9.7 fl (7.4-10.4); Monocytes # 0.8 K/mm3 (0.1-1.0); Monocytes % 6.2 % (1.7-9.3); Neutrophils # 10.2 K/mm3 (1.8-7.8); Neutrophils % 76.3 % (37.0-80.0); Platelet Count 361 K/mm3 (142-424); Red Blood Count 4.36 M/mm3 (4.60-6.20); Red Cell Distribution Width 16.9 % (11.5-17.5); White Blood Count 13.3 K/mm3 (4.8-10.8)
[2017-08-15 13:36] LABS: Potassium 4.7 mmoL/L (3.5-5.1)
[2017-08-15 13:37] LABS: Albumin Level 2.5 gm/dL (3.4-5.0); Albumin/Globulin Ratio 0.4 (1.1-1.8); Anion Gap 8.3 mEq/L (5-15); Bilirubin,Total 0.3 mg/dL (0.2-1.0); Calcium 9.6 mg/dL (8.5-10.1); Globulin 5.7 gm/dl (1.3-3.2); Total Protein,Serum 8.2 gm/dL (6.4-8.2)
[2017-08-15 13:38] LABS: Vancomycin,Trough 0.1 mcg/ml (10.0-20.0)
[2017-08-15 13:58] LABS: Creatine Kinase 23 U/L (39-308)
[2017-08-15 14:08] LABS: Valproic Acid, (Depakene) 18.8 ug/mL (50-100)
[2017-08-16 05:23] LABS: Basophils # 0.1 K/mm3 (0-0.2); Basophils % 0.5 % (0.1-2.0); Eosinophils # 0.1 K/mm3 (0.0-0.4); Eosinophils % 0.7 % (0.1-12.0); Lymphocytes # 1.5 K/mm3 (0.7-4.5); Lymphocytes % 12.8 K/mm3 (10-50); Mean Corpuscular Hemoglobin 28.5 pg (27.0-31.2); Mean Corpuscular Volume 92.1 fl (80-94); Mean Platelet Volume 9.9 fl (7.4-10.4); Monocytes # 0.7 K/mm3 (0.1-1.0); Monocytes % 5.8 % (1.7-9.3); Neutrophils # 9.6 K/mm3 (1.8-7.8); Neutrophils % 80.2 % (37.0-80.0); Platelet Count 264 K/mm3 (142-424); Red Blood Count 3.25 M/mm3 (4.60-6.20)
[2017-08-16 05:25] LABS: Hematocrit 29.9 % (42.0-52.0); Hemoglobin 9.3 g/dL (14.1-18.0)
[2017-08-16 05:30] LABS: Anion Gap 11.3 mEq/L (5-15); Potassium 4.3 mmoL/L (3.5-5.1)
--- NOTE | 2017-08-16 08:28 | History & Physical Report ---
*Admission Date: 08/15/17 *Chief complaint: Hypoxia and shortness of air *History of present illness: 41-year-old white male with significant history of remote traumatic brain injury , penitentiary status, feeding tube and chronic bedbound status with multiple episodes of recurrent aspiration pneumonia issues. He was brought to the emergency department from the [facility] because of low saturations and shortness of air. In the emergency department he was found to have heart rates in the 200s, and adenosine treatment revealed a baseline rhythm of atrial flutter. He was treated with intravenous Cardizem and then a Cardizem drip followed by eta blockers through his G-tube. After couple hours of Cardizem in the ER he converted to sinus rhythm. Of note blood pressure was relatively low in the high 80s/low 90s systolic but review of his penitentiary records reveals this is about his baseline. X-ray showed possible infiltrate, and near the end of the ER course he had a temperature elevation of 99.2. He was admitted to floor for further observation of heart rate, and the initiation of antibiotics for coverage of recurrent aspiration pneumonia and high infection risk. [facility] History I have reviewed the patient's past medical history: Yes Medical History: Reports:: Diabetes Mellitus Type 2, Seizures, Urinary Tract Infection Denies:: Chronic Obstructive Pulmonary Disease (COPD) Other Medical History: Reports: Anemia Comment: Traumatic brain injury many years ago, bedbound/total care patient Other Surgeries: Yes: Colostomy - *Social History Smoking Status: Former smoker Alcohol Intake: never Occupational Status: disabled Housing: penitentiary Household Members: other - Psychiatric History Expresses thoughts of harming self/others: None Suicide Plan Description: No Plan *Family Hx:: Diabetes, Heart Attack Review of Systems - Review of Systems Review of systems:: unable to obtain Patient unable to respond review of systems given his nonverbal status. Meds Home Medications Medication Instructions Recorded Confirmed Type ALPRAZolam [Xanax 1mg tab] 1 mg G-TUBE TID 06/15/17 08/15/17 History Acetaminophen [Tylenol] 650 mg G-TUBE Q6HP PRN 06/15/17 08/15/17 History Arginine/Glutamine/Calcium Hmb 1 each G-TUBE TID 06/15/17 08/15/17 History [Jonathan Packet] Baclofen 20 mg G-TUBE TID 06/15/17 08/15/17 History Docusate Sodium [Docusate Sod 50 mg G-TUBE BID 06/15/17 08/15/17 History Liquid 100mg/10mL udc] Famotidine [Pepcid 20mg Tablet] 20 mg G-TUBE BID 06/15/17 08/15/17 History Lactose-Reduced Food/Fiber 1,000 ml PO CONT 06/15/17 08/15/17 History [Isosource 1.5 Brandon Tube Feed Lq] Polyethylene Glycol 3350 [Miralax 17 gm G-TUBE DAILY PRN 06/15/17 08/15/17 History 17gm Packet] Protein Supplement [Prosource] 1 pack G-TUBE DAILY 06/15/17 08/15/17 History Sennosides [Senna] 8.6 mg G-TUBE BID 06/15/17 08/15/17 History Thiamine HCl 100 mg G-TUBE BID 06/15/17 08/15/17 History Valproic Acid (As Sodium Salt) 250 mg G-TUBE TID 06/15/17 08/15/17 History [Depakene syrup 250mg/5mL cherelle UDC] Vit B Cmplx 3/Folic AC/C/Biot 1 each G-TUBE DAILY 06/15/17 08/15/17 History [Syeda-Byron Rx Tablet] levETIRAcetam [Keppra 500mg tablet] 1,000 mg G-TUBE BID 06/15/17 08/15/17 History levOCARNitine tartrate 1,000 mg G-TUBE TID 06/15/17 08/15/17 History [l-Carnitine] risperiDONE [Risperdal 0.5mg 0.5 mg G-TUBE BID 06/15/17 08/15/17 History tablet] Ciprofloxacin HCl [Ciprofloxacin 500 mg PO BID 08/15/17 08/15/17 History 500mg Tab] L. Acidophilus/L.bulgaricus 1 each PO TID 08/15/17 08/15/17 History [Floranex Tablet] Tobramycin Sulfate [Tobramycin 420 mg IV 1100 08/15/17 08/15/17 History 80mg/2mL Vial] Vancomycin HCl [Vancomycin 1000mg 1,250 mg IV Q12H 08/15/17 08/15/17 History Vial] Allergies Allergy/AdvReac Type Severity Reaction Status Date / Time haloperidol [From Haldol] Allergy Verified 08/15/17 13:08 Exam Vital signs and Labs for Last 24 Hours: Temp Pulse Resp BP Pulse Ox 98.9 F 80 20 144/87 90 L 08/16/17 07:52 08/16/17 07:52 08/16/17 07:52 08/16/17 07:52 08/16/17 08:00 Laboratory Results - last 24 hr 08/15/17 20:13: POC Glucose 151 08/16/17 05:08: POC Glucose 135 08/16/17 05:10: WBC 12.0 H, RBC 3.25 L D, Hgb 9.3 L D, Hct 29.9 L, MCV 92.1, MCH 28.5, MCHC 31.0 L, RDW 17.0, Plt Count 264 D, MPV 9.9, Neut % (Auto) 80.2 H , Lymph % (Auto) 12.8, [place] % (Auto) 5.8, Eos % (Auto) 0.7, Baso % (Auto) 0.5, Neut # (Auto) 9.6 H, Lymph # (Auto) 1.5, [place] # (Auto) 0.7, Eos # (Auto) 0.1, Baso # (Auto) 0.1 08/16/17 05:10: Sodium 150 H, Potassium 4.3, Chloride 116 H, Carbon Dioxide 27, Anion Gap 11.3, BUN 39 H, Creatinine 0.87, Estimated Creat Clear 103, Estimated GFR 96, Est GFR ( Amer) 116, Glucose 139 H D I & O for Last 24 hours: Intake & Output 08/13/17 08/14/17 08/15/17 08/16/17 11:59 11:59 11:59 11:59 Intake Total 1044 / 1044 Output Total 750 / 750 Balance 294 / 294 Weight 149 lb 8 oz Microbiology Reports for the Last 24 Hours: Microbiology 08/15/17 21:02 Urine,[place] Urine Culture - Preliminary Gram Negative Rods Narrative: Patient is thin and cachectic. Alert but noncommunicative. Skin turgor is waxy but good capillary refill. Blood pressure and pulse are noted. Pulse rate overnight since conversion to sinus rhythm has been in the low 80s and a regular sinus rhythm on machinist apprentice wood. Anterior lung barron have some rhonchi but are otherwise symmetric air movement. Heart rate is regular. Ab soft, G-tube site and colostomy site look intact and seem to be functioning well. Extremities are contracted, waxy skin changes and poor perfusion consistent with his history of traumatic brain injury issues. Hypoxia and contractures noted in the lower extremities which seem to be his baseline. H&P: Result - Labs Labs: Short CBC 08/16/17 Range/Units 05:10 WBC 12.0 H (4.8-10.8) K/mm3 Hgb 9.3 L D (14.1-18.0) g/dL Hct 29.9 L (42.0-52.0) % Plt Count 264 D (142-424) K/mm3 BMP 08/16/17 05:10 Sodium 150 H Potassium 4.3 Chloride 116 H Carbon Dioxide 27 BUN 39 H Creatinine 0.87 Glucose 139 H D Assessment and Plan (1) E. coli sepsis Current visit: Yes Status: Acute Category: Medical Code(s): A41.51 - Sepsis due to Escherichia coli [E. coli] Culture show E. coli. Currently on broad-spectrum treatment. Await sensitivities. Patient has a PICC line in place, we will contact [facility] to find out when this was placed. (2) New onset atrial fibrillation Current visit: Yes Status: Acute Category: Medical Code(s): I48.91 - Unspecified atrial fibrillation Currently resolved. On diltiazem and beta blockade per G-tube. Observe. Probably a response to significant bacteremia/infectious issues. Check echocardiogram. (3) Traumatic brain injury Current visit: Yes Status: Acute Category: Medical Code(s): S06.9X9A - Unspecified intracranial injury with loss of consciousness of unspecified duration, initial encounter No changes in plan for his chronic conditions. Restart seizure medications, sliding scale insulin. (4) Gastrostomy tube in place Current visit: No Status: Chronic Category: Medical Code(s): Z93.1 - Gastrostomy status (5) Seizure disorder Current visit: No Status: Chronic Category: Medical Code(s): G40.909 - Epilepsy, unspecified, not intractable, without status epilepticus (6) Tracheostomy in place Current visit: No Status: Chronic Category: Medical Code(s): Z93.0 - Tracheostomy status (7) Type 2 diabetes mellitus Current visit: No Status: Chronic Category: Medical Code(s): E11.9 - Type 2 diabetes mellitus without complications (8) Dehydration with hypernatremia Current visit: No Status: Resolved Category: Medical Code(s): E87.0 - Hyperosmolality and hypernatremia (9) Hypoxemia Current visit: No Status: Resolved Category: Medical Code(s): R09.02 - Hypoxemia
--- NOTE | 2017-08-16 22:19 | Cardiology Report ---
PROCEDURE: 2-D M-mode and color Doppler study INDICATIONS FOR THE TEST: Chest pain COPD Heart Murmur Tobacco Smoking Palpitations Fatigue Syncope Edema Hypertension Diabetes Mellitus Rheumatic Fever SOB YOUSIF Obesity Hyperlipidemia Family History HD Additional History ARRHYTHMIA LIMITED EXAM SECONDARY TO BODY HABITUS CONTORTED TRAUMATIC BRAIN INJURY PATIENT INFORMATION HEIGHT: 66 WEIGHT:149 GENDER: Male B/P:144/87 2-D/M-MODE INTERPRETATION: 2-D MEASUREMENTS OBSERVED VALUES IN CMS Right Ventricular Dimension (RVDd) 3.0 Interventricular Septum (Thickness)(IVsd) 1.3 Left Ventricular Internal Dimensions(LVIDd) 4.0 Left Ventricular Posterior Wall (Thickness)(LVPWd) 1.2 Aortic Root 3.4 Aortic Cusp Separation Left Atrial Dimensions (LAD) 2.5 2D 1. Left atrium is normal size, left ventricle is normal size, left ventricle wall thickness is upper limit of the normal, there is probably preserved left ventricular systolic function. Endocardial surface of poorly visualized 2. The right atrium and right ventricle are mildly enlarged with normal contractility 3. The aortic valve is minimally thickened and fibrosed. 4. The mitral and tricuspid valve are grossly normal. 5. The pulmonic valve is poorly visualized. 6. No significant pericardial effusion noted. DOPPLER INTERROGATION: Doppler interrogation of the aortic, mitral and tricuspid valvular presence of mild mitral and tricuspid regurgitation, tricuspid and jet velocity insufficient for calculation of the right ventricular systolic pressure. Diastolic parameters are inconclusive. CONCLUSION: 1. Normal left ventricular size, preserved left ventricular systolic function, visually estimated ejection fraction 55% with no obvious regional wall motion abnormality, endocardial subsequent poorly visualized. 2. Mildly enlarged right ventricle with normal contractility 3. Mild mitral and tricuspid addition 4. No significant pericardial effusion noted.
[2017-08-17 05:40] LABS: Basophils # 0.1 K/mm3 (0-0.2); Basophils % 0.8 % (0.1-2.0); Eosinophils # 0.2 K/mm3 (0.0-0.4); Eosinophils % 2.6 % (0.1-12.0); Hematocrit 25.4 % (42.0-52.0); Lymphocytes # 2.2 K/mm3 (0.7-4.5); Lymphocytes % 30.1 K/mm3 (10-50); Mean Corpuscular HGB Conc 30.8 g/dL (31.8-35.4); Mean Corpuscular Hemoglobin 28.8 pg (27.0-31.2); Mean Corpuscular Volume 93.4 fl (80-94); Monocytes # 0.4 K/mm3 (0.1-1.0); Monocytes % 5.8 % (1.7-9.3); Neutrophils # 4.4 K/mm3 (1.8-7.8); Neutrophils % 60.8 % (37.0-80.0); Platelet Count 219 K/mm3 (142-424); Red Blood Count 2.72 M/mm3 (4.60-6.20); Red Cell Distribution Width 16.6 % (11.5-17.5); White Blood Count 7.2 K/mm3 (4.8-10.8)
[2017-08-17 06:02] LABS: Hemoglobin 7.8 g/dL (14.1-18.0)
[2017-08-17 06:17] LABS: Albumin Level 1.7 gm/dL (3.4-5.0); Albumin/Globulin Ratio 0.4 (1.1-1.8); Anion Gap 11.7 mEq/L (5-15); Bilirubin,Total 0.2 mg/dL (0.2-1.0); Globulin 4.1 gm/dl (1.3-3.2); Potassium 3.7 mmoL/L (3.5-5.1); Total Protein,Serum 5.8 gm/dL (6.4-8.2)
[2017-08-17 07:15] LABS: Calcium 8.5 mg/dL (8.5-10.1)
--- NOTE | 2017-08-17 08:01 | Progress Note ---
Internal Medicine - PN: Subj *Date: 08/17/17 *Time: 08:00 Interval history: Patient is in no distress, heart rate slightly bradycardic in the 50s. Labs and hemoglobin reviewed. Exam Vital signs and Labs for Last 24 Hours: Temp Pulse Resp BP Pulse Ox 97.7 F 54 L 16 148/86 99 08/17/17 07:43 08/17/17 07:43 08/17/17 07:43 08/17/17 07:43 08/17/17 07:43 Laboratory Results - last 24 hr 08/16/17 14:06: POC Glucose 99 08/16/17 17:11: POC Glucose 95 08/16/17 19:26: POC Glucose 85 08/17/17 05:08: WBC 7.2 D, RBC 2.72 L, Hgb 7.8 L*, Hct 25.4 L, MCV 93.4, MCH 28.8, MCHC 30.8 L, RDW 16.6, Plt Count 219, MPV 10.0, Neut % (Auto) 60.8, Lymph % (Auto) 30.1, [place] % (Auto) 5.8, Eos % (Auto) 2.6, Baso % (Auto) 0.8, Neut # ( Auto) 4.4, Lymph # (Auto) 2.2, [place] # (Auto) 0.4, Eos # (Auto) 0.2, Baso # (Auto ) 0.1 08/17/17 05:08: Sodium 154 H*, Potassium 3.7, Chloride 120 H, Carbon Dioxide 26 , Anion Gap 11.7, BUN 31 H, Creatinine 0.76, Estimated Creat Clear 121, Estimated GFR 112, Est GFR ( Amer) 135, Glucose 79 D, Calcium 8.5 D, Total Bilirubin 0.2, AST 15, ALT 13, Alkaline Phosphatase 65, Total Protein 5.8 L D, Albumin 1.7 L, Globulin 4.1 H, Albumin/Globulin Ratio 0.4 L 08/17/17 06:00: POC Glucose 74 I & O for Last 24 hours: Intake & Output 08/14/17 08/15/17 08/16/17 08/17/17 11:59 11:59 11:59 11:59 Intake Total 1044 / 1044 2620 / 2620 Output Total 750 / 750 600 / 600 Balance 294 / 294 2019 Weight 149 lb 7.998 oz 150 lb 9 oz Microbiology Reports for the Last 24 Hours: Microbiology 08/15/17 21:02 Urine,[place] Urine Culture - Final Escherichia coli Narrative: Centrally unchanged exam except for vital signs. Pulse rate in the 50s. Anterior lung barron are clear, less trach drainage. G-tube and colostomy look good. Assessment and Plan (1) E. coli sepsis Current visit: Yes Status: Acute Category: Medical Code(s): A41.51 - Sepsis due to Escherichia coli [E. coli] (2) New onset atrial fibrillation Current visit: Yes Status: Acute Category: Medical Code(s): I48.91 - Unspecified atrial fibrillation (3) Traumatic brain injury Current visit: Yes Status: Acute Category: Medical Code(s): S06.9X9A - Unspecified intracranial injury with loss of consciousness of unspecified duration, initial encounter (4) Gastrostomy tube in place Current visit: No Status: Chronic Category: Medical Code(s): Z93.1 - Gastrostomy status (5) Seizure disorder Current visit: No Status: Chronic Category: Medical Code(s): G40.909 - Epilepsy, unspecified, not intractable, without status epilepticus (6) Tracheostomy in place Current visit: No Status: Chronic Category: Medical Code(s): Z93.0 - Tracheostomy status (7) Type 2 diabetes mellitus Current visit: No Status: Chronic Category: Medical Code(s): E11.9 - Type 2 diabetes mellitus without complications (8) Dehydration with hypernatremia Current visit: No Status: Resolved Category: Medical Code(s): E87.0 - Hyperosmolality and hypernatremia (9) Hypoxemia Current visit: No Status: Resolved Category: Medical Code(s): R09.02 - Hypoxemia - Assessment and plan all Dx Assessment and Plan for all problems:: Transfuse today. Delusional along with sepsis affect. Continue IV antibiotics. Fever improved. Cut Cardizem dose down because of relative bradycardia. Possible transfer back to group home tomorrow. Resume tube feedings today.
--- NOTE | 2017-08-17 14:06 | Pharmacy Consult Notes ---
- Pharmacy Consult Date: 08/17/17 Time: 14:03 Referring provider: DR. OTERO Reason for Consult:: TOBRAMYCIN DOSING Allergies and ADEs:: Allergies Allergy/AdvReac Type Severity Reaction Status Date / Time haloperidol [From Haldol] Allergy Verified 08/15/17 13:08 Home Medications:: Home Medications Medication Instructions Recorded Confirmed Type ALPRAZolam [Xanax 1mg tab] 1 mg G-TUBE TID 06/15/17 08/15/17 History Acetaminophen [Tylenol] 650 mg G-TUBE Q6HP PRN 06/15/17 08/15/17 History Arginine/Glutamine/Calcium Hmb 1 each G-TUBE TID 06/15/17 08/15/17 History [Jonathan Packet] Baclofen 20 mg G-TUBE TID 06/15/17 08/15/17 History Docusate Sodium [Docusate Sod 50 mg G-TUBE BID 06/15/17 08/15/17 History Liquid 100mg/10mL udc] Famotidine [Pepcid 20mg Tablet] 20 mg G-TUBE BID 06/15/17 08/15/17 History Lactose-Reduced Food/Fiber 1,000 ml PO CONT 06/15/17 08/15/17 History [Isosource 1.5 [place] Tube Feed Lq] Polyethylene Glycol 3350 [Miralax 17 gm G-TUBE DAILY PRN 06/15/17 08/15/17 History 17gm Packet] Protein Supplement [Prosource] 1 pack G-TUBE DAILY 06/15/17 08/15/17 History Sennosides [Senna] 8.6 mg G-TUBE BID 06/15/17 08/15/17 History Thiamine HCl 100 mg G-TUBE BID 06/15/17 08/15/17 History Valproic Acid (As Sodium Salt) 250 mg G-TUBE TID 06/15/17 08/15/17 History [Depakene syrup 250mg/5mL cherelle UDC] Vit B Cmplx 3/Folic AC/C/Biot 1 each G-TUBE DAILY 06/15/17 08/15/17 History [Syeda-Byron Rx Tablet] levETIRAcetam [Keppra 500mg tablet] 1,000 mg G-TUBE BID 06/15/17 08/15/17 History levOCARNitine tartrate 1,000 mg G-TUBE TID 06/15/17 08/15/17 History [l-Carnitine] risperiDONE [Risperdal 0.5mg 0.5 mg G-TUBE BID 06/15/17 08/15/17 History tablet] L. Acidophilus/L.bulgaricus 1 each PO TID 08/15/17 08/15/17 History [Floranex Tablet] Enoxaparin Sodium [Lovenox 40 mg SQ DAILY 08/16/17 08/16/17 History 40mg/0.4mL syringe] Ibuprofen [Ibuprofen 600mg Tab] 600 mg PO Q6HP PRN 08/16/17 08/16/17 History Insulin Glargine,Hum.rec.anlog 10 unit SQ DAILY 08/16/17 08/16/17 History [Insulin Glargine 100 Units/mL 3mL flexpen] Insulin Regular, Human [Humulin R 0 units SQ DIRECTED 08/16/17 08/16/17 History Insulin 100 Units/mL 10mL Vial] Height: 1.68 m Weight: 68.294 kg Laboratory Results:: Laboratory Results - last 24 hr 08/16/17 14:06: POC Glucose 99 08/16/17 17:11: POC Glucose 95 08/16/17 19:26: POC Glucose 85 08/17/17 05:08: WBC 7.2 D, RBC 2.72 L, Hgb 7.8 L*, Hct 25.4 L, MCV 93.4, MCH 28.8, MCHC 30.8 L, RDW 16.6, Plt Count 219, MPV 10.0, Neut % (Auto) 60.8, Lymph % (Auto) 30.1, [place] % (Auto) 5.8, Eos % (Auto) 2.6, Baso % (Auto) 0.8, Neut # ( Auto) 4.4, Lymph # (Auto) 2.2, [place] # (Auto) 0.4, Eos # (Auto) 0.2, Baso # (Auto ) 0.1 08/17/17 05:08: Sodium 154 H*, Potassium 3.7, Chloride 120 H, Carbon Dioxide 26 , Anion Gap 11.7, BUN 31 H, Creatinine 0.76, Estimated Creat Clear 121, Estimated GFR 112, Est GFR ( Amer) 135, Glucose 79 D, Calcium 8.5 D, Total Bilirubin 0.2, AST 15, ALT 13, Alkaline Phosphatase 65, Total Protein 5.8 L D, Albumin 1.7 L, Globulin 4.1 H, Albumin/Globulin Ratio 0.4 L 08/17/17 06:00: POC Glucose 74 08/17/17 10:00: Blood Type O Positive, Antibody Screen Negative, Crossmatch (AHG ) See Detail 08/17/17 10:05: Blood Type Confirm O Positive Medical History: Reports:: Diabetes Mellitus Type 2, Seizures, Urinary Tract Infection Denies:: Chronic Obstructive Pulmonary Disease (COPD) Assessment and Plan (1) E. coli sepsis Current visit: Yes Status: Acute Category: Medical Code(s): A41.51 - Sepsis due to Escherichia coli [E. coli] (2) New onset atrial fibrillation Current visit: Yes Status: Acute Category: Medical Code(s): I48.91 - Unspecified atrial fibrillation (3) Traumatic brain injury Current visit: Yes Status: Acute Category: Medical Code(s): S06.9X9A - Unspecified intracranial injury with loss of consciousness of unspecified duration, initial encounter (4) Gastrostomy tube in place Current visit: No Status: Chronic Category: Medical Code(s): Z93.1 - Gastrostomy status (5) Seizure disorder Current visit: No Status: Chronic Category: Medical Code(s): G40.909 - Epilepsy, unspecified, not intractable, without status epilepticus (6) Tracheostomy in place Current visit: No Status: Chronic Category: Medical Code(s): Z93.0 - Tracheostomy status (7) Type 2 diabetes mellitus Current visit: No Status: Chronic Category: Medical Code(s): E11.9 - Type 2 diabetes mellitus without complications (8) Dehydration with hypernatremia Current visit: No Status: Resolved Category: Medical Code(s): E87.0 - Hyperosmolality and hypernatremia (9) Hypoxemia Current visit: No Status: Resolved Category: Medical Code(s): R09.02 - Hypoxemia - Assessment and plan all Dx Assessment and Plan for all problems:: BASED ON PATIENT'S FACTORS, RECOMMEND STARTING WITH TOBRAMYCIN 320 MG Q24H AT THIS TIME. PHARMACY WILL FOLLOW DAILY AND ADJUST APPROPRIATE. BRUNA YOO, KATHYD
[2017-08-17 17:28] LABS: Hematocrit 34.2 % (42.0-52.0)
[2017-08-17 17:30] LABS: Hemoglobin 10.4 g/dL (14.1-18.0)
[2017-08-18 05:45] LABS: Basophils % 0.2 % (0.1-2.0); Eosinophils # 0.2 K/mm3 (0.0-0.4); Eosinophils % 0.9 % (0.1-12.0); Hematocrit 28.1 % (42.0-52.0); Lymphocytes # 0.9 K/mm3 (0.7-4.5); Lymphocytes % 4.1 K/mm3 (10-50); Mean Corpuscular HGB Conc 30.4 g/dL (31.8-35.4); Mean Corpuscular Hemoglobin 28.4 pg (27.0-31.2); Mean Corpuscular Volume 93.4 fl (80-94); Mean Platelet Volume 10.7 fl (7.4-10.4); Monocytes # 0.6 K/mm3 (0.1-1.0); Monocytes % 2.8 % (1.7-9.3); Neutrophils # 19.1 K/mm3 (1.8-7.8); Platelet Count 200 K/mm3 (142-424); Red Blood Count 3.01 M/mm3 (4.60-6.20); Red Cell Distribution Width 16.5 % (11.5-17.5); White Blood Count 20.7 K/mm3 (4.8-10.8)
[2017-08-18 05:56] LABS: Hemoglobin 8.6 g/dL (14.1-18.0)
[2017-08-18 05:57] LABS: Albumin Level 1.4 gm/dL (3.4-5.0); Albumin/Globulin Ratio 0.4 (1.1-1.8); Anion Gap 14.6 mEq/L (5-15); Bilirubin,Total 0.1 mg/dL (0.2-1.0); Calcium 7.8 mg/dL (8.5-10.1); Globulin 3.7 gm/dl (1.3-3.2); Potassium 3.6 mmoL/L (3.5-5.1); Total Protein,Serum 5.1 gm/dL (6.4-8.2)
[2017-08-18 07:16] LABS: Lymphocytes % 6 % (10-50); Monocytes % 3 % (2-9); Neutrophils % 65 % (42-76); Total Cells Counted 100
[2017-08-18 07:20] LABS: Hypochromasia 2+
--- NOTE | 2017-08-18 08:21 | Progress Note ---
Internal Medicine - PN: Subj *Date: 08/18/17 *Time: 08:19 Interval history: Patient had a low-grade temperature overnight, had 1 unit of packed cells with fever yesterday. Antibiotics were adjusted yesterday as noted in order section. Patient is somnolent, obtunded and as usual noncommunicative today. Exam Vital signs and Labs for Last 24 Hours: Temp Pulse Resp BP Pulse Ox 97.7 F 61 22 84/48 100 08/18/17 07:54 08/18/17 07:54 08/18/17 07:54 08/18/17 07:54 08/18/17 07:54 Laboratory Results - last 24 hr 08/17/17 10:00: Blood Type O Positive, Antibody Screen Negative, Crossmatch (AHG ) See Detail 08/17/17 10:05: Blood Type Confirm O Positive 08/17/17 11:40: POC Glucose 72 08/17/17 15:54: POC Glucose 61 08/17/17 16:20: Hgb 10.4 L D, Hct 34.2 L 08/17/17 16:20: Random Tobramycin 8.2 08/17/17 17:24: POC Glucose 108 08/17/17 21:56: POC Glucose 145 08/18/17 00:25: Random Tobramycin 5.3 08/18/17 05:35: WBC 20.7 H* D, RBC 3.01 L, Hgb 8.6 L D, Hct 28.1 L, MCV 93.4, MCH 28.4, MCHC 30.4 L, RDW 16.5, Plt Count 200, MPV 10.7 H, Neut % (Auto) 92.0 H , Lymph % (Auto) 4.1 L, [place] % (Auto) 2.8, Eos % (Auto) 0.9, Baso % (Auto) 0.2, Neut # (Auto) 19.1 H, Lymph # (Auto) 0.9, [place] # (Auto) 0.6, Eos # (Auto) 0.2, Baso # (Auto) 0.0, Total Counted 100, Neutrophils % (Manual) 65, Band Neutrophils % 16.0 H, Lymphocytes % (Manual) 6 L, Monocytes % (Manual) 3, Metamyelocytes % 10.0 H, Platelet Estimate Normal, RBC Morphology Not Reportable , Hypochromasia 2+ 08/18/17 05:35: Sodium 150 H, Potassium 3.6, Chloride 117 H, Carbon Dioxide 22, Anion Gap 14.6, BUN 41 H D, Creatinine 1.41 H D, Estimated Creat Clear 65, Estimated GFR 55 L, Est GFR ( Amer) 66 D, Glucose 189 H, Calcium 7.8 L, Total Bilirubin 0.1 L, AST 12 L, ALT 10 L, Alkaline Phosphatase 59, Total Protein 5.1 L, Albumin 1.4 L D, Globulin 3.7 H, Albumin/Globulin Ratio 0.4 L 08/18/17 05:55: POC Glucose 202 I & O for Last 24 hours: Intake & Output 08/15/17 08/16/17 08/17/17 08/18/17 11:59 11:59 11:59 11:59 Intake Total 1044 / 1044 2620 / 2620 4221 / 4221 Output Total 750 / 750 600 / 600 1600 / 1600 Balance 294 / 294 2019 2621 / 2621 Weight 149 lb 7.998 oz 150 lb 9 oz 150 lb 9 oz Microbiology Reports for the Last 24 Hours: Microbiology 08/15/17 21:02 Urine,[place] Urine Culture - Final Escherichia coli Narrative: Patient skin turgor looks slightly better. Anterior lung barron are clear, trach drainage is improving. G-tube is functioning well, on his baseline feedings without residual. Colostomy bag with soft brown stool. Previous contractures and obtundation noted. Assessment and Plan (1) E. coli sepsis Current visit: Yes Status: Acute Category: Medical Code(s): A41.51 - Sepsis due to Escherichia coli [E. coli] (2) New onset atrial fibrillation Current visit: Yes Status: Acute Category: Medical Code(s): I48.91 - Unspecified atrial fibrillation (3) Traumatic brain injury Current visit: Yes Status: Acute Category: Medical Code(s): S06.9X9A - Unspecified intracranial injury with loss of consciousness of unspecified duration, initial encounter (4) Gastrostomy tube in place Current visit: No Status: Chronic Category: Medical Code(s): Z93.1 - Gastrostomy status (5) Seizure disorder Current visit: No Status: Chronic Category: Medical Code(s): G40.909 - Epilepsy, unspecified, not intractable, without status epilepticus (6) Tracheostomy in place Current visit: No Status: Chronic Category: Medical Code(s): Z93.0 - Tracheostomy status (7) Type 2 diabetes mellitus Current visit: No Status: Chronic Category: Medical Code(s): E11.9 - Type 2 diabetes mellitus without complications (8) Dehydration with hypernatremia Current visit: No Status: Resolved Category: Medical Code(s): E87.0 - Hyperosmolality and hypernatremia (9) Hypoxemia Current visit: No Status: Resolved Category: Medical Code(s): R09.02 - Hypoxemia - Assessment and plan all Dx Assessment and Plan for all problems:: E. coli sepsis. Currently on tobramycin and Invanz intravenously. E. coli UTI. Antibiotic coverage as above reviewed. Pseudomonas pneumonia-on coverage with tobramycin as noted. 1 more unit of packed cells today because of hemoglobin of 7 g. Follow this and if no fevers, stable metabolic profile tomorrow would consider transfer back to skilled nursing to finish up IV antibiotics. Patient is significantly and terminally ill. I would hope that primary physician at home would investigate changing CODE STATUS to DNR and patient would benefit from palliative care/hospice consultation.
--- NOTE | 2017-08-18 11:55 | Pharmacy Consult Notes ---
- Pharmacy Consult Date: 08/18/17 Time: 11:53 Referring provider: DR. OTERO Reason for Consult:: TOBRAMYCIN LEVELS Allergies and ADEs:: Allergies Allergy/AdvReac Type Severity Reaction Status Date / Time haloperidol [From Haldol] Allergy Verified 08/15/17 13:08 Home Medications:: Home Medications Medication Instructions Recorded Confirmed Type ALPRAZolam [Xanax 1mg tab] 1 mg G-TUBE TID 06/15/17 08/15/17 History Acetaminophen [Tylenol] 650 mg G-TUBE Q6HP PRN 06/15/17 08/15/17 History Arginine/Glutamine/Calcium Hmb 1 each G-TUBE TID 06/15/17 08/15/17 History [Jonathan Packet] Baclofen 20 mg G-TUBE TID 06/15/17 08/15/17 History Docusate Sodium [Docusate Sod 50 mg G-TUBE BID 06/15/17 08/15/17 History Liquid 100mg/10mL udc] Famotidine [Pepcid 20mg Tablet] 20 mg G-TUBE BID 06/15/17 08/15/17 History Lactose-Reduced Food/Fiber 1,000 ml PO CONT 06/15/17 08/15/17 History [Isosource 1.5 [place] Tube Feed Lq] Polyethylene Glycol 3350 [Miralax 17 gm G-TUBE DAILY PRN 06/15/17 08/15/17 History 17gm Packet] Protein Supplement [Prosource] 1 pack G-TUBE DAILY 06/15/17 08/15/17 History Sennosides [Senna] 8.6 mg G-TUBE BID 06/15/17 08/15/17 History Thiamine HCl 100 mg G-TUBE BID 06/15/17 08/15/17 History Valproic Acid (As Sodium Salt) 250 mg G-TUBE TID 06/15/17 08/15/17 History [Depakene syrup 250mg/5mL cherelle UDC] Vit B Cmplx 3/Folic AC/C/Biot 1 each G-TUBE DAILY 06/15/17 08/15/17 History [Syeda-Byron Rx Tablet] levETIRAcetam [Keppra 500mg tablet] 1,000 mg G-TUBE BID 06/15/17 08/15/17 History levOCARNitine tartrate 1,000 mg G-TUBE TID 06/15/17 08/15/17 History [l-Carnitine] risperiDONE [Risperdal 0.5mg 0.5 mg G-TUBE BID 06/15/17 08/15/17 History tablet] L. Acidophilus/L.bulgaricus 1 each PO TID 08/15/17 08/15/17 History [Floranex Tablet] Enoxaparin Sodium [Lovenox 40 mg SQ DAILY 08/16/17 08/16/17 History 40mg/0.4mL syringe] Ibuprofen [Ibuprofen 600mg Tab] 600 mg PO Q6HP PRN 08/16/17 08/16/17 History Insulin Glargine,Hum.rec.anlog 10 unit SQ DAILY 08/16/17 08/16/17 History [Insulin Glargine 100 Units/mL 3mL flexpen] Insulin Regular, Human [Humulin R 0 units SQ DIRECTED 08/16/17 08/16/17 History Insulin 100 Units/mL 10mL Vial] Height: 1.68 m Weight: 68.294 kg Laboratory Results:: Laboratory Results - last 24 hr 08/17/17 10:00: Blood Type O Positive, Antibody Screen Negative, Crossmatch (AHG ) See Detail 08/17/17 11:40: POC Glucose 72 08/17/17 15:54: POC Glucose 61 08/17/17 16:20: Hgb 10.4 L D, Hct 34.2 L 08/17/17 16:20: Random Tobramycin 8.2 08/17/17 17:24: POC Glucose 108 08/17/17 21:56: POC Glucose 145 08/18/17 00:25: Random Tobramycin 5.3 08/18/17 05:35: WBC 20.7 H* D, RBC 3.01 L, Hgb 8.6 L D, Hct 28.1 L, MCV 93.4, MCH 28.4, MCHC 30.4 L, RDW 16.5, Plt Count 200, MPV 10.7 H, Neut % (Auto) 92.0 H , Lymph % (Auto) 4.1 L, [place] % (Auto) 2.8, Eos % (Auto) 0.9, Baso % (Auto) 0.2, Neut # (Auto) 19.1 H, Lymph # (Auto) 0.9, [place] # (Auto) 0.6, Eos # (Auto) 0.2, Baso # (Auto) 0.0, Total Counted 100, Neutrophils % (Manual) 65, Band Neutrophils % 16.0 H, Lymphocytes % (Manual) 6 L, Monocytes % (Manual) 3, Metamyelocytes % 10.0 H, Platelet Estimate Normal, RBC Morphology Not Reportable , Hypochromasia 2+ 08/18/17 05:35: Sodium 150 H, Potassium 3.6, Chloride 117 H, Carbon Dioxide 22, Anion Gap 14.6, BUN 41 H D, Creatinine 1.41 H D, Estimated Creat Clear 65, Estimated GFR 55 L, Est GFR ( Amer) 66 D, Glucose 189 H, Calcium 7.8 L, Total Bilirubin 0.1 L, AST 12 L, ALT 10 L, Alkaline Phosphatase 59, Total Protein 5.1 L, Albumin 1.4 L D, Globulin 3.7 H, Albumin/Globulin Ratio 0.4 L 08/18/17 05:55: POC Glucose 202 08/18/17 11:14: Tobramycin Trough 3.1 H 08/18/17 11:21: POC Glucose 157 Medical History: Reports:: Diabetes Mellitus Type 2, Seizures, Urinary Tract Infection Denies:: Chronic Obstructive Pulmonary Disease (COPD) Assessment and Plan (1) E. coli sepsis Current visit: Yes Status: Acute Category: Medical Code(s): A41.51 - Sepsis due to Escherichia coli [E. coli] (2) New onset atrial fibrillation Current visit: Yes Status: Acute Category: Medical Code(s): I48.91 - Unspecified atrial fibrillation (3) Traumatic brain injury Current visit: Yes Status: Acute Category: Medical Code(s): S06.9X9A - Unspecified intracranial injury with loss of consciousness of unspecified duration, initial encounter (4) Gastrostomy tube in place Current visit: No Status: Chronic Category: Medical Code(s): Z93.1 - Gastrostomy status (5) Seizure disorder Current visit: No Status: Chronic Category: Medical Code(s): G40.909 - Epilepsy, unspecified, not intractable, without status epilepticus (6) Tracheostomy in place Current visit: No Status: Chronic Category: Medical Code(s): Z93.0 - Tracheostomy status (7) Type 2 diabetes mellitus Current visit: No Status: Chronic Category: Medical Code(s): E11.9 - Type 2 diabetes mellitus without complications (8) Dehydration with hypernatremia Current visit: No Status: Resolved Category: Medical Code(s): E87.0 - Hyperosmolality and hypernatremia (9) Hypoxemia Current visit: No Status: Resolved Category: Medical Code(s): R09.02 - Hypoxemia - Assessment and plan all Dx Assessment and Plan for all problems:: 4-HOUR POST-INFUSION: 8.2 MCG/ML CALCULATED PEAK: 9.67 MCG/ML 12-HOUR PST-INFUSION: 5.3 MCG/ML CALCULATED TROUGH: 2.74 MCG/ML TOBRAMYCIN TROUGH LEVEL: 3.1 MCG/ML SRCR HAS INCREASED FROM 0.76 TO 1.41 BASED ON LEVELS AND PATIENT FACTORS, RECOMMEND HOLDING DOSE TODAY AND CHANGING ORDER TO TOBRAMYCIN 360 MG IV Q48H. WILL OBTAIN ANOTHER TOBRAMYCIN TROUGH LEVEL TOMORROW MORNING PRIOR TO DOSE.
[2017-08-18 17:38] LABS: Hematocrit 30.2 % (42.0-52.0); Hemoglobin 9.2 g/dL (14.1-18.0)
[2017-08-19 06:10] LABS: Basophils % 0.1 % (0.1-2.0); Eosinophils # 0.1 K/mm3 (0.0-0.4); Eosinophils % 0.5 % (0.1-12.0); Hemoglobin 9.4 g/dL (14.1-18.0); Lymphocytes # 2.2 K/mm3 (0.7-4.5); Lymphocytes % 11.6 K/mm3 (10-50); Mean Corpuscular HGB Conc 30.3 g/dL (31.8-35.4); Mean Corpuscular Hemoglobin 28.9 pg (27.0-31.2); Mean Corpuscular Volume 95.2 fl (80-94); Mean Platelet Volume 12.2 fl (7.4-10.4); Monocytes # 0.7 K/mm3 (0.1-1.0); Monocytes % 3.6 % (1.7-9.3); Neutrophils # 16.1 K/mm3 (1.8-7.8); Neutrophils % 84.2 % (37.0-80.0); Platelet Count 180 K/mm3 (142-424); Red Blood Count 3.26 M/mm3 (4.60-6.20); Red Cell Distribution Width 16.4 % (11.5-17.5); White Blood Count 19.1 K/mm3 (4.8-10.8)
[2017-08-19 06:23] LABS: Anion Gap 12.5 mEq/L (5-15); Potassium 3.5 mmoL/L (3.5-5.1)
--- NOTE | 2017-08-19 08:20 | Discharge Summary ---
General - General Admission date: 08/15/17 Discharge date: 08/19/17 HPI HPI: 41-year-old white male with significant history of remote traumatic brain injury , fci status, feeding tube and chronic bedbound status with multiple episodes of recurrent aspiration pneumonia issues. He was brought to the emergency department from the [facility] because of low saturations and shortness of air. In the emergency department he was found to have heart rates in the 200s, and adenosine treatment revealed a baseline rhythm of atrial flutter. He was treated with intravenous Cardizem and then a Cardizem drip followed by eta blockers through his G-tube. After couple hours of Cardizem in the ER he converted to sinus rhythm. Of note blood pressure was relatively low in the high 80s/low 90s systolic but review of his fci records reveals this is about his baseline. X-ray showed possible infiltrate, and near the end of the ER course he had a temperature elevation of 99.2. He was admitted to floor for further observation of heart rate, and the initiation of antibiotics for coverage of recurrent aspiration pneumonia and high infection risk. Hospital Course Hospital Course: Patient was admitted, after converting this rhythm in the emergency department he did not go back into atrial fibrillation. He had been placed on bisoprolol and diltiazem both by G-tube, and he began to have some bradycardia episodes into the mid 50s. As a result diltiazem was discontinued and bisoprolol was continued with good control of heart rate in the high 60s. Several cultures were obtained, patient ended up having E. coli ESBL positive and urine, Pseudomonas from trach and a different species of E. coli in his blood. We settled on a regimen of Invanz and tobramycin for coverage of all these organisms. Kidney function was monitored and pharmacy has helped calculate doses. The patient did require 2 units of packed cells while here because of anemia. This appears to be from chronic disease versus hemolysis secondary to his sepsis. Did not have evidence of active bleeding. Patient's neurologic status remained markedly compromised. He has multiple neurologic agencies from his traumatic brain injury including blindness, deafness, noncommunicative status and significant palsy. Patient's been afebrile for 36 hours. Tolerating tube feeds after the rate was reduced because of some residuals. Plan will be to transfer back to his skilled care facility today. He will continue these antibiotics as noted for another 10 days of both Invanz and tobramycin at the scheduled doses. Pharmacy services at the facility will need to follow the dosing and he will need to have a CBC and basic metabolic panel on August 23. Please note I would like his tube feeds to be run at 30 mL's per hour over the weekend, on Wednesday the , he can begin increasing by 5 mL's per shift back up to 60 mL's per hour which apparently is his target per dietary. Please obtain another dietary consultation for recalculation of his tube feed needs. As noted in my progress notes I also think it would be in this patient's best interest to have a reevaluation of his CODE STATUS. The patient has realistic probability of recovery from his current obtunded, noncommunicative state, his overall prognosis is poor and I would recommend consideration of DNR status as well as potential he hospice consultation. Objective Vital signs: Temp Pulse Resp BP Pulse Ox 98.2 F 60 20 102/47 95 08/19/17 07:33 08/19/17 07:33 08/19/17 07:33 08/19/17 07:33 08/19/17 07:33 Narrative: Patient's exam is improved from a cardiac status since admission, heart rate regular. Blood pressure is acceptable. His lungs have rhonchi, trach site is clear, continues to have some yellowish green drainage but it is improving. Abdomen is soft, G-tube is functioning well, colostomy bag functioning well. Extremities are waxy, he has significant muscle wasting, contractures, skin care however is good. He is nonresponsive, evidence of visual and hearing loss. Results Labs on day of discharge: Labs from last 24 hours 08/19/17 08/19/17 08/19/17 05:50 05:50 05:44 WBC 19.1 H RBC 3.26 L Hgb 9.4 L Hct 31.0 L MCV 95.2 H MCH 28.9 MCHC 30.3 L RDW 16.4 Plt Count 180 MPV 12.2 H Neut % (Auto) 84.2 H Lymph % (Auto) 11.6 [place] % (Auto) 3.6 Eos % (Auto) 0.5 Baso % (Auto) 0.1 Neut # (Auto) 16.1 H Lymph # (Auto) 2.2 [place] # (Auto) 0.7 Eos # (Auto) 0.1 Baso # (Auto) 0.0 Sodium 149 H Potassium 3.5 Chloride 118 H Carbon Dioxide 22 Anion Gap 12.5 BUN 50 H Creatinine 1.19 Estimated Creat Clear 83 Estimated GFR 67 Est GFR ( Amer) 81 D Glucose 157 H POC Glucose 130 H Tobramycin Trough Blood Type Antibody Screen Crossmatch ([facility]) 08/18/17 08/18/17 08/18/17 21:05 17:10 16:36 WBC RBC Hgb 9.2 L Hct 30.2 L MCV MCH MCHC RDW Plt Count MPV Neut % (Auto) Lymph % (Auto) [place] % (Auto) Eos % (Auto) Baso % (Auto) Neut # (Auto) Lymph # (Auto) [place] # (Auto) Eos # (Auto) Baso # (Auto) Sodium Potassium Chloride Carbon Dioxide Anion Gap BUN Creatinine Estimated Creat Clear Estimated GFR Est GFR ( Amer) Glucose POC Glucose 133 H 91 Tobramycin Trough Blood Type Antibody Screen Crossmatch ([facility]) 08/18/17 08/18/17 08/17/17 11:21 11:14 10:00 WBC RBC Hgb Hct MCV MCH MCHC RDW Plt Count MPV Neut % (Auto) Lymph % (Auto) [place] % (Auto) Eos % (Auto) Baso % (Auto) Neut # (Auto) Lymph # (Auto) [place] # (Auto) Eos # (Auto) Baso # (Auto) Sodium Potassium Chloride Carbon Dioxide Anion Gap BUN Creatinine Estimated Creat Clear Estimated GFR Est GFR ( Amer) Glucose POC Glucose 157 Tobramycin Trough 3.1 H Blood Type O Positive Antibody Screen Negative Crossmatch ([facility]) See Detail DS: Diagnosis - Discharge Diagnosis (1) E. coli sepsis Status: Acute (2) New onset atrial fibrillation Status: Acute (3) Traumatic brain injury Status: Acute (4) Gastrostomy tube in place Status: Chronic (5) Seizure disorder Status: Chronic (6) Tracheostomy in place Status: Chronic (7) Type 2 diabetes mellitus Status: Chronic (8) Dehydration with hypernatremia Status: Resolved (9) Hypoxemia Status: Resolved Discharge Plan - Patient Discharge Instructions ACTIVITY: Limited activity DIET: other - Follow up Plan Follow up with: Juan Daniel Guidry [Primary Care Provider] - Disposition: [facility] Home Medications: Home Medications Medication Instructions Recorded Confirmed Type ALPRAZolam [Xanax 1mg tab] 1 mg G-TUBE TID 06/15/17 08/15/17 History Acetaminophen [Tylenol] 650 mg G-TUBE Q6HP PRN 06/15/17 08/15/17 History Arginine/Glutamine/Calcium Hmb 1 each G-TUBE TID 06/15/17 08/15/17 History [Jonathan Packet] Baclofen 20 mg G-TUBE TID 06/15/17 08/15/17 History Docusate Sodium [Docusate Sod 50 mg G-TUBE BID 06/15/17 08/15/17 History Liquid 100mg/10mL udc] Famotidine [Pepcid 20mg Tablet] 20 mg G-TUBE BID 06/15/17 08/15/17 History Lactose-Reduced Food/Fiber 1,000 ml PO CONT 06/15/17 08/15/17 History [Isosource 1.5 Brandon Tube Feed Lq] Polyethylene Glycol 3350 [Miralax 17 gm G-TUBE DAILY PRN 06/15/17 08/15/17 History 17gm Packet] Protein Supplement [Prosource] 1 pack G-TUBE DAILY 06/15/17 08/15/17 History Sennosides [Senna] 8.6 mg G-TUBE BID 06/15/17 08/15/17 History Thiamine HCl 100 mg G-TUBE BID 06/15/17 08/15/17 History Valproic Acid (As Sodium Salt) 250 mg G-TUBE TID 06/15/17 08/15/17 History [Depakene syrup 250mg/5mL cherelle UDC] Vit B Cmplx 3/Folic AC/C/Biot 1 each G-TUBE DAILY 06/15/17 08/15/17 History [Syeda-Byron Rx Tablet] levETIRAcetam [Keppra 500mg tablet] 1,000 mg G-TUBE BID 06/15/17 08/15/17 History levOCARNitine tartrate 1,000 mg G-TUBE TID 06/15/17 08/15/17 History [l-Carnitine] risperiDONE [Risperdal 0.5mg 0.5 mg G-TUBE BID 06/15/17 08/15/17 History tablet] L. Acidophilus/L.bulgaricus 1 each PO TID 08/15/17 08/15/17 History [Floranex Tablet] Enoxaparin Sodium [Lovenox 40 mg SQ DAILY 08/16/17 08/16/17 History 40mg/0.4mL syringe] Ibuprofen [Ibuprofen 600mg Tab] 600 mg PO Q6HP PRN 08/16/17 08/16/17 History Insulin Glargine,Hum.rec.anlog 10 unit SQ DAILY 08/16/17 08/16/17 History [Insulin Glargine 100 Units/mL 3mL flexpen] Insulin Regular, Human [Humulin R 0 units SQ DIRECTED 08/16/17 08/16/17 History Insulin 100 Units/mL 10mL Vial] Prescriptions/Medication Reconciliation: New Ertapenem Sodium [Invanz 1gm Vial] 1 gm IV Q24H vial Tobramycin Sulfate [Tobramycin 80mg/2mL Vial] 360 mg IV Q24H ml Bisoprolol Fumarate [Zebeta 5mg tablet] 5 mg G-TUBE BID tablet Baclofen [Lioresal 10mg tablet] 20 mg G-TUBE TID tablet Continue Polyethylene Glycol 3350 [Miralax 17gm Packet] 17 gm G-TUBE DAILY PRN PRN Reason: Constipation Protein Supplement [Prosource] 1 pack G-TUBE DAILY Valproic Acid (As Sodium Salt) [Depakene syrup 250mg/5mL cherelle UDC] 250 mg G- TUBE TID Thiamine HCl 100 mg G-TUBE BID Vit B Cmplx 3/Folic AC/C/Biot [Syeda-Byron Rx Tablet] 1 each G-TUBE DAILY risperiDONE [Risperdal 0.5mg tablet] 0.5 mg G-TUBE BID levETIRAcetam [Keppra 500mg tablet] 1,000 mg G-TUBE BID Famotidine [Pepcid 20mg Tablet] 20 mg G-TUBE BID Arginine/Glutamine/Calcium Hmb [Jonathan Packet] 1 each G-TUBE TID Docusate Sodium [Docusate Sod Liquid 100mg/10mL udc] 50 mg G-TUBE BID Baclofen 20 mg G-TUBE TID ALPRAZolam [Xanax 1mg tab] 1 mg G-TUBE TID Acetaminophen [Tylenol] 650 mg G-TUBE Q6HP PRN PRN Reason: pain or fever Enoxaparin Sodium [Lovenox 40mg/0.4mL syringe] 40 mg SQ DAILY Insulin Glargine,Hum.rec.anlog [Insulin Glargine 100 Units/mL 3mL flexpen] 10 unit SQ DAILY Lactose-Reduced Food/Fiber [Isosource 1.5 Brandon Tube Feed Lq] 1,000 ml PO CONT Sennosides [Senna] 8.6 mg G-TUBE BID L. Acidophilus/L.bulgaricus [Floranex Tablet] 1 each PO TID Insulin Regular, Human [Humulin R Insulin 100 Units/mL 10mL Vial] 0 units SQ DIRECTED Discontinued levOCARNitine tartrate [l-Carnitine] 1,000 mg G-TUBE TID Vancomycin HCl [Vancomycin 1000mg Vial] 1,250 mg IV Q12H Tobramycin Sulfate [Tobramycin 80mg/2mL Vial] 420 mg IV 1100 Ciprofloxacin HCl [Ciprofloxacin 500mg Tab] 500 mg PO BID Ibuprofen [Ibuprofen 600mg Tab] 600 mg PO Q6HP PRN PRN Reason: PAIN
[2017-08-19 08:22] LABS: Eosinophils % 1 % (0-3); Lymphocytes % 13 % (10-50); Monocytes % 2 % (2-9); Neutrophils % 79 % (42-76); Total Cells Counted 100
[2017-08-19 08:23] LABS: RBC Morphology Normal
[2017-08-19 11:37] VITALS: BP 92/61
--- NOTE | 2017-08-19 12:04 | Pharmacy Consult Notes ---
- Pharmacy Consult Date: 08/19/17 Time: 12:02 Referring provider: DR. OTERO Reason for Consult:: TOBRAMYCIN TROUGH LEVEL Allergies and ADEs:: Allergies Allergy/AdvReac Type Severity Reaction Status Date / Time haloperidol [From Haldol] Allergy Verified 08/15/17 13:08 Home Medications:: Home Medications Medication Instructions Recorded Confirmed Type ALPRAZolam [Xanax 1mg tab] 1 mg G-TUBE TID 06/15/17 08/15/17 History Acetaminophen [Tylenol] 650 mg G-TUBE Q6HP PRN 06/15/17 08/15/17 History Arginine/Glutamine/Calcium Hmb 1 each G-TUBE TID 06/15/17 08/15/17 History [Jonathan Packet] Baclofen 20 mg G-TUBE TID 06/15/17 08/15/17 History Docusate Sodium [Docusate Sod 50 mg G-TUBE BID 06/15/17 08/15/17 History Liquid 100mg/10mL udc] Famotidine [Pepcid 20mg Tablet] 20 mg G-TUBE BID 06/15/17 08/15/17 History Lactose-Reduced Food/Fiber 1,000 ml PO CONT 06/15/17 08/15/17 History [Isosource 1.5 Brandon Tube Feed Lq] Polyethylene Glycol 3350 [Miralax 17 gm G-TUBE DAILY PRN 06/15/17 08/15/17 History 17gm Packet] Protein Supplement [Prosource] 1 pack G-TUBE DAILY 06/15/17 08/15/17 History Sennosides [Senna] 8.6 mg G-TUBE BID 06/15/17 08/15/17 History Thiamine HCl 100 mg G-TUBE BID 06/15/17 08/15/17 History Valproic Acid (As Sodium Salt) 250 mg G-TUBE TID 06/15/17 08/15/17 History [Depakene syrup 250mg/5mL cherelle UDC] Vit B Cmplx 3/Folic AC/C/Biot 1 each G-TUBE DAILY 06/15/17 08/15/17 History [Syeda-Byron Rx Tablet] levETIRAcetam [Keppra 500mg tablet] 1,000 mg G-TUBE BID 06/15/17 08/15/17 History risperiDONE [Risperdal 0.5mg 0.5 mg G-TUBE BID 06/15/17 08/15/17 History tablet] L. Acidophilus/L.bulgaricus 1 each PO TID 08/15/17 08/15/17 History [Floranex Tablet] Enoxaparin Sodium [Lovenox 40 mg SQ DAILY 08/16/17 08/16/17 History 40mg/0.4mL syringe] Insulin Glargine,Hum.rec.anlog 10 unit SQ DAILY 08/16/17 08/16/17 History [Insulin Glargine 100 Units/mL 3mL flexpen] Insulin Regular, Human [Humulin R 0 units SQ DIRECTED 08/16/17 08/16/17 History Insulin 100 Units/mL 10mL Vial] Height: 1.68 m Weight: 73.227 kg Laboratory Results:: Laboratory Results - last 24 hr 08/17/17 10:00: Blood Type O Positive, Antibody Screen Negative, Crossmatch ([facility] ) See Detail 08/18/17 16:36: POC Glucose 91 08/18/17 17:10: Hgb 9.2 L, Hct 30.2 L 08/18/17 21:05: POC Glucose 133 H 08/19/17 05:44: POC Glucose 130 H 08/19/17 05:50: WBC 19.1 H, RBC 3.26 L, Hgb 9.4 L, Hct 31.0 L, MCV 95.2 H, MCH 28.9, MCHC 30.3 L, RDW 16.4, Plt Count 180, MPV 12.2 H, Neut % (Auto) 84.2 H, Lymph % (Auto) 11.6, [place] % (Auto) 3.6, Eos % (Auto) 0.5, Baso % (Auto) 0.1, Neut # (Auto) 16.1 H, Lymph # (Auto) 2.2, [place] # (Auto) 0.7, Eos # (Auto) 0.1, Baso # (Auto) 0.0, Total Counted 100, Neutrophils % (Manual) 79 H, Band Neutrophils % 5.0, Lymphocytes % (Manual) 13, Monocytes % (Manual) 2, Eosinophils % (Manual) 1, Platelet Estimate Normal, RBC Morphology Normal 08/19/17 05:50: Sodium 149 H, Potassium 3.5, Chloride 118 H, Carbon Dioxide 22, Anion Gap 12.5, BUN 50 H, Creatinine 1.19, Estimated Creat Clear 83, Estimated GFR 67, Est GFR ( Amer) 81 D, Glucose 157 H 08/19/17 10:20: Tobramycin Trough 0.8 Medical History: Reports:: Diabetes Mellitus Type 2, Seizures, Urinary Tract Infection Denies:: Chronic Obstructive Pulmonary Disease (COPD) Assessment and Plan (1) E. coli sepsis Current visit: Yes Status: Acute Category: Medical Code(s): A41.51 - Sepsis due to Escherichia coli [E. coli] (2) New onset atrial fibrillation Current visit: Yes Status: Acute Category: Medical Code(s): I48.91 - Unspecified atrial fibrillation (3) Traumatic brain injury Current visit: Yes Status: Acute Category: Medical Code(s): S06.9X9A - Unspecified intracranial injury with loss of consciousness of unspecified duration, initial encounter (4) Gastrostomy tube in place Current visit: No Status: Chronic Category: Medical Code(s): Z93.1 - Gastrostomy status (5) Seizure disorder Current visit: No Status: Chronic Category: Medical Code(s): G40.909 - Epilepsy, unspecified, not intractable, without status epilepticus (6) Tracheostomy in place Current visit: No Status: Chronic Category: Medical Code(s): Z93.0 - Tracheostomy status (7) Type 2 diabetes mellitus Current visit: No Status: Chronic Category: Medical Code(s): E11.9 - Type 2 diabetes mellitus without complications (8) Dehydration with hypernatremia Current visit: No Status: Resolved Category: Medical Code(s): E87.0 - Hyperosmolality and hypernatremia (9) Hypoxemia Current visit: No Status: Resolved Category: Medical Code(s): R09.02 - Hypoxemia - Assessment and plan all Dx Assessment and Plan for all problems:: TOBRAMYCIN TROUGH LEVEL IS 0.8 TODAY. RECOMMEND CONTINUING TOBRAMYCIN 360 MG IV Q48H.
== END 2017-08-19 13:49 ==
LOC: ER 12:32 → 2ND 16:01
PROVIDERS: ADMIT Internal Medicine Adolescent Medicine; ATTEND Internal Medicine Adolescent Medicine

== ENCOUNTER 2017-08-20 18:11 | Emergency (ER) | payer MEDICARE, OTHER, SELFPAY ==
[2017-08-20 18:11] VITALS: BP 138/83; PULSE 57; RESP 24; O2SAT 95; BMI 21.5
--- NOTE | 2017-08-20 18:13 | HMH.EDSOB ---
ED Disposition Clinical Impression: SOB (shortness of breath) Pneumonia Qualifiers: Pneumonia type: due to Pneumococcus Disposition: Xfer SNF Condition on Discharge: Fair Instructions: Pneumonia-Adult Additional Instructions: Return to NH per d/w Dr. Sharp: he recommends deep suctioning Q four hours while awake; repeat CBC, CMP, lactate on 08/23/17 in AM and arrange for follow up with Dr. Guidry; continue Invanz and Tobra as already being given. Referrals: Juan Daniel Guidry [Primary Care Provider] - - Critical Care Critical Care Time: No Attestation: On , the high probability of a clinically significant, sudden or life threatening deterioration of the following system(s) required my full and direct attention, intervention and personal management. The time I documented below is in addition to time spent performing reported procedures but includes the following listed in this critical care notation. Medical Decision Making - Medical Records Medical records reviewed: Yes: I reviewed the patient's medical records. - Twin Inquiry Pt receiving controlled substance: No Twin was queried for this patient: No Vital Signs: 08/20/17 18:11 08/20/17 18:41 08/20/17 19:29 Pulse Rate [Left Radial] 57 L 54 L 52 L Respiratory Rate 24 16 16 Blood Pressure [Right Arm] 138/83 125/76 115/73 Blood Pressure Mean [Right Arm] 101 92 87 Blood Pressure Source [Right Arm] Automatic Cuff Blood Pressure Position [Right Arm] Sitting 02 Sat by Pulse Oximetry 95 100 98 Oxygen Delivery Method Room Air Oxygen Flow Rate (LPM) 08/20/17 19:35 Pulse Rate [Left Radial] Respiratory Rate Blood Pressure [Right Arm] Blood Pressure Mean [Right Arm] Blood Pressure Source [Right Arm] Blood Pressure Position [Right Arm] 02 Sat by Pulse Oximetry Oxygen Delivery Method Oxygen Flow Rate (LPM) 10 - Lab Data Lab Results 08/20/17 18:30: WBC 9.7 D, RBC 3.52 L, Hgb 10.1 L, Hct 32.5 L, MCV 92.5, MCH 28.7, MCHC 31.0 L, RDW 16.3, Plt Count 200, MPV 10.9 H, Neut % (Auto) 66.9, Lymph % (Auto) 26.4, [place] % (Auto) 2.5, Eos % (Auto) 3.9, Baso % (Auto) 0.3, Neut # (Auto) 6.5, Lymph # (Auto) 2.6, [place] # (Auto) 0.2, Eos # (Auto) 0.4, Baso # (Auto) 0.0 08/20/17 18:30: Sodium 152 H*, Potassium 3.1 L, Chloride 120 H, Carbon Dioxide 25, Anion Gap 10.1, BUN 44 H, Creatinine 0.73 D, Estimated Creat Clear 126, Estimated GFR 117, Est GFR ( Amer) 142 D, Glucose 127 H, Calcium 8.5, Total Bilirubin 0.1 L, AST 9 L, ALT 10 L, Alkaline Phosphatase 67, Total Protein 5.6 L, Albumin 1.5 L, Globulin 4.1 H, Albumin/Globulin Ratio 0.4 L, Total Valproic Acid 11.6 L 08/20/17 18:30: Total Creatine Kinase 18 L, CK-MB (CK-2) < 0.5, CK-MB (CK-2) Rel Index 2.8, Troponin I < 0.02 08/20/17 18:30: Lactic Acid 0.9 Result diagrams: 08/20/17 18:30 08/20/17 18:30 Orders (Tests/Meds): ED MEDICATIONS Generic Name Dose Route Start Last Admin Trade Name Freq PRN Reason Stop Dose Admin Sodium Chloride 1,000 mls @ 125 mls/hr 08/20/17 19:30 08/20/17 19:40 Sod Chlor 0.9% 1000ml Bag IV 08/21/17 03:29 125 mls/hr .Q8H JENNIFER Administration ORDERS Category Date Time Status Blood Culture Stat Micro 08/20/17 18:30 Ordered Sputum Culture & Gram Stain Stat Micro 08/20/17 18:21 Received - Radiology Data #1 Image(s): Chest Preliminary Findings: Abnormal (patchy infiltrates, R greater than L with some atelectasis on R) - Physician Consults Physician Consulted: Dr. Sharp Time: 20:00 Reason -: Pt condition Comment/Response: Patient stable and overall doing well on current ABX: not septic today and is HDS; recommends order for deep suction Q4; repeat CBC and CMP and lactate in three days 08/23/17 and close f/u Dr Guidry Resp/SOB HPI - General Chief Complaint: Shortness of Breath/Dyspnea Stated Complaint: SOA Time Seen by Provider: 08/20/17 18:13 Mode of Arrival: EMS Source of Information: EMS, Medical Record Limitations: Physical Limitatio
--- NOTE | 2017-08-20 18:26 | XR_ITS ---
XR chest portable COMPARISON: Oval spine chest 08/15/2017 HISTORY: Short of breath TECHNIQUE: Portable semiupright chest FINDINGS: Is a fairly good inspiration. Coarse patchy pneumonic infiltrates are seen in both lower lobes which wasn't definitely seen on the most recent chest film. The upper lung barron remain clear. The PICC line remains in satisfactory position with the tip in the SVC above the right atrium. The tracheostomy cannula is in good position. Cardiac size is normal considering the poor inspiration. IMPRESSION: Bilateral lower lobe pneumonic infiltrates somewhat more diffuse right lower lobe than left and more prominent than on the previous film in June this year which time there was a minimal pneumonic infiltrate in the right lower lobe
[2017-08-20 18:41] VITALS: BP 125/76; PULSE 54; RESP 16; O2SAT 100
[2017-08-20 18:52] LABS: Basophils % 0.3 % (0.1-2.0); Eosinophils # 0.4 K/mm3 (0.0-0.4); Eosinophils % 3.9 % (0.1-12.0); Hematocrit 32.5 % (42.0-52.0); Hemoglobin 10.1 g/dL (14.1-18.0); Lymphocytes # 2.6 K/mm3 (0.7-4.5); Lymphocytes % 26.4 K/mm3 (10-50); Mean Corpuscular Hemoglobin 28.7 pg (27.0-31.2); Mean Corpuscular Volume 92.5 fl (80-94); Mean Platelet Volume 10.9 fl (7.4-10.4); Monocytes # 0.2 K/mm3 (0.1-1.0); Monocytes % 2.5 % (1.7-9.3); Neutrophils # 6.5 K/mm3 (1.8-7.8); Neutrophils % 66.9 % (37.0-80.0); Platelet Count 200 K/mm3 (142-424); Red Blood Count 3.52 M/mm3 (4.60-6.20); Red Cell Distribution Width 16.3 % (11.5-17.5); White Blood Count 9.7 K/mm3 (4.8-10.8)
[2017-08-20 19:01] LABS: Chloride 120 mmol/L (98-107); Potassium 3.1 mmoL/L (3.5-5.1)
[2017-08-20 19:14] LABS: Alanine Aminotransferase 10 U/L (12-78); Albumin Level 1.5 gm/dL (3.4-5.0); Albumin/Globulin Ratio 0.4 (1.1-1.8); Alkaline Phosphatase 67 U/L (46-116); Anion Gap 10.1 mEq/L (5-15); Aspartate Amino Transferase 9 U/L (15-37); Bilirubin,Total 0.1 mg/dL (0.2-1.0); Blood Urea Nitrogen 44 mg/dL (7-18); Calcium 8.5 mg/dL (8.5-10.1); Carbon Dioxide 25 mmol/L (21.0-32.0); Creatinine Clearance Estimated 126 mL/min (0-300); Creatinine,Serum 0.73 mg/dL (0.70-1.30); Estimated Glomerular Filt Rate 117 ml/min (>60); GFR (African American) 142 ML/MIN (>60); Globulin 4.1 gm/dl (1.3-3.2); Glucose 127 mg/dL (74-106); Total Protein,Serum 5.6 gm/dL (6.4-8.2); Valproic Acid, (Depakene) 11.6 ug/mL (50-100)
[2017-08-20 19:16] LABS: Lactic Acid 0.9 mmol/L (0.4-2.0)
[2017-08-20 19:24] LABS: Sodium 152 mmol/L (136-145)
--- NOTE | 2017-08-20 19:26 | PC.NURSE ---
notified of critical sodium, new orders obtained
[2017-08-20 19:29] VITALS: BP 115/73; PULSE 52; RESP 16; O2SAT 98
[2017-08-20 19:34] LABS: Creatine Kinase 18 U/L (39-308); Troponin I < 0.02 ng/ml (0.00-0.06)
[2017-08-20 19:35] LABS: CKMB Relative Index 2.8 U/L (0-4.0); Creatine Kinase MB < 0.5 ng/ml (0.0-3.6)
[2017-08-20 20:18] VITALS: BP 115/76; PULSE 58; RESP 16; O2SAT 98
--- NOTE | 2017-08-20 20:33 | PC.NURSE ---
Called report to [facility] and spoke with Agueda
[2017-08-20 20:52] VITALS: BP 115/69; PULSE 58; O2SAT 98
[2017-08-20 21:25] VITALS: BP 116/69; PULSE 59; RESP 14; TEMP 36.1; O2SAT 97
--- NOTE | 2017-08-21 14:58 | PC.NURSE ---
prelim blood culture results reported. noted patient to be on two separate antibiotics via snf . awaiting final report for confirmation of appropriate antibiotic
== END 2017-08-20 21:25 ==
PROVIDERS: Emergency Provider Emergency Medicine; PCP Family Medicine
DX: J18.9 Pneumonia, unspecified organism (principal); E11.9 Type 2 diabetes mellitus without complications; Z79.4 Long term (current) use of insulin; Z87.891 Personal history of nicotine dependence; I48.91 Unspecified atrial fibrillation
CPT/HCPCS: 36415; 71045; 80053; 80164; 82550; 82553; 83605; 84484; 85025; 87040; 87070; 87077; 87186; 87205; 93005; 96365; 99284

== ENCOUNTER 2017-09-03 03:14 | Inpatient (IN) ==
--- NOTE | 2017-09-03 03:31 | Emergency Department Note ---
ED Disposition Clinical Impression: RML pneumonia Qualifiers: Pneumonia type: aspiration pneumonia Aspiration pneumonia type: unspecified Qualified Code(s): J69.0 - Pneumonitis due to inhalation of food and vomit Fever Qualifiers: Fever type: unspecified Qualified Code(s): R50.9 - Fever, unspecified Disposition: Admitted As Inpatient Condition on Discharge: Fair Time of Disposition: 06:07 - Critical Care Critical Care Time: No Attestation: On , the high probability of a clinically significant, sudden or life threatening deterioration of the following system(s) required my full and direct attention, intervention and personal management. The time I documented below is in addition to time spent performing reported procedures but includes the following listed in this critical care notation. Medical Decision Making - Medical Records Medical records reviewed: Yes: I reviewed the patient's medical records. - Twin Inquiry Pt receiving controlled substance: No Vital Signs: 09/03/17 03:15 09/03/17 04:35 Temperature 101 F H Temperature Source Rectal Pulse Rate 94 H Pulse Rate [Right Radial] 95 H Respiratory Rate 14 Blood Pressure [Right Arm] 122/76 Blood Pressure Mean [Right Arm] 91 Blood Pressure Source [Right Arm] Automatic Cuff Blood Pressure Position [Right Arm] Supine 02 Sat by Pulse Oximetry 89 L Oxygen Delivery Method Trach Collar/ Tube - Lab Data Lab results reviewed: Yes: I reviewed the patient's lab results. Lab Results 09/03/17 03:14: Urine Color Yellow, Urine Appearance Clear, Urine pH 5.5, Ur Specific Salome 1.020, Urine Protein 2+, Urine Glucose (UA) Negative, Urine Ketones Negative, Urine Blood 3+, Urine Nitrate Negative, Urine Bilirubin Negative, Urine Urobilinogen 0.2, Ur Leukocyte Esterase 1+ A 09/03/17 03:55: WBC 12.1 H, RBC 4.26 L, Hgb 12.3 L, Hct 38.9 L, MCV 91.1, MCH 28.8, MCHC 31.6 L, RDW 15.9, Plt Count 263, MPV 11.4 H, Neut % (Auto) 70.4, Lymph % (Auto) 20.8, [place] % (Auto) 7.5, Eos % (Auto) 0.7, Baso % (Auto) 0.5, Neut # (Auto) 8.5 H, Lymph # (Auto) 2.5, [place] # (Auto) 0.9, Eos # (Auto) 0.1, Baso # (Auto) 0.1 09/03/17 03:55: Sodium 145, Potassium 4.3, Chloride 106, Carbon Dioxide 29, Anion Gap 14.3, BUN 43 H, Creatinine 1.17, Estimated Creat Clear 74, Estimated GFR 68, Est GFR ( Amer) 82, Glucose 212 H, Calcium 9.2, Total Bilirubin 0.3, AST 10 L, ALT 10 L, Alkaline Phosphatase 91, Total Protein 7.5 D, Albumin 2.1 L, Globulin 5.4 H, Albumin/Globulin Ratio 0.4 L 09/03/17 03:55: Lactic Acid 1.8 09/03/17 03:55: Total Creatine Kinase 10 L, CK-MB (CK-2) < 0.5, CK-MB (CK-2) Rel Index 5.0 H, Troponin I < 0.02 Result diagrams: 09/03/17 03:55 09/03/17 03:55 Orders (Tests/Meds): ED MEDICATIONS Generic Name Dose Route Start Last Admin Trade Name Freq PRN Reason Stop Dose Admin Ertapenem 1 gm/ Sodium 50 mls @ 100 mls/hr 09/03/17 03:45 09/03/17 04:06 Chloride IV 09/17/17 03:44 100 mls/hr Q24H JENNIFER Administration Protocol Miscellaneous 1 each 09/03/17 03:45 Tobramycin Consult Request * 10/03/17 03:44 CONSULT PHARMACY [facility] Tobramycin Sulfate 360 mg 09/03/17 09:00 Tobramycin 80mg/2ml Vial IV 09/17/17 08:59 DAILY [facility] Protocol Discontinued Medications Generic Name Dose Route Start Last Admin Trade Name Freq PRN Reason Stop Dose Admin Acetaminophen 1,000 mg 09/03/17 03:35 09/03/17 04:06 Acetaminophen 650mg Suppository RC 09/03/17 03:36 1,000 mg ONCE ONE Administration Albuterol/Ipratropium 3 ml 09/03/17 03:18 09/03/17 03:20 Duoneb 3ml Neb 09/03/17 03:19 3 ml ONCE ONE Administration Sodium Chloride 3 ml 09/03/17 03:56 Sodium Choride 3ml Neb Soln 09/03/17 03:57 ONCE ONE ORDERS Category Date Time Status Chest XR -- portable [XR chest portable] Stat Exams 09/03/17 03:19 Taken Urinalysis-Acute [Urinalysis and Microscopic] Stat Lab 09/03/17 03:14 Results Blood Culture Stat Micro 09/03/17 03:56 Received Sputum Culture & Gram Stain Stat Micro 09/03/17 03:14 Received Urine Culture Stat Micro 09/03/17 03:14 Received - Radiology Data #1 Image(s): Chest Image Reviewed: Yes I reviewed the patient's radiology image Preliminary Findings: Abnormal NEW right middle lobe infiltrate - ECG Data Tracing #1 I reviewed this ECG and interpreted as documented below: Heart rate 88, no acute ischemic changes ECG normal with no acute: arrhythmias, ischemia, conduction abnormalities, chamber hypertrophy Normal Sinus Rhythm: Yes - Physician Consults Physician Consulted: Dr Cordoba (document control supervisor) Time: 05:55 Reason -: Admission, Pt condition Comment/Response: Advise of patient's presentation, findings, choice of antibiotics, agreeable with hospitalization. Care transferred to Dr. Cordoba at this time. Will write temporary admission orders, with nurse to call back Dr. Cordoba upon patient's arrival to floor in order to obtain full, inpatient admission orders. Resp/SOB HPI - General Chief Complaint: Shortness of Breath/Dyspnea Stated Complaint: shortnes of air Time Seen by Provider: 09/03/17 03:45 Mode of Arrival: EMS Source of Information: EMS Limitations: No Limitations Description of Symptoms (Recalled from ER Triage Doc. by RN): care home reports decreased oxygen saturation, increased secretions and lethargy. - History of Present Illness Mr. Vicente is a 41-year-old [facility] male patient from [facility] with known history of traumatic brain injury, quadriplegic, sent to the emergency room for evaluation of low pulse oxymetry readings and increased secretions via tracheostomy. At the [facility] his sats were 79% on trach collar, and no deep suctioning was performed prior to patient transfer to ER. he was treated for pneumonia approximately 2 weeks ago, just finished Invanz + Tobramycin at the [place], according to the facility records sent with him. MD Complaint: shortness of breath (increased secretions via trach, low POx readings) Onset (ago): hour(s) (1) Context: recent illness (2 weeks ago was treated for pneumonia) Severity: similar to previous episodes Consistency/Duration: constant Relieving factors: oxygen Exacerbating factors: lying flat Known history of: recurrent pneumonia Associated symptoms: fever, cough, wheezing, sputum production Treatment prior to arrival: oxygen - Related Data Home Medications Medication Instructions Recorded Confirmed ALPRAZolam [Xanax 1mg tab] 1 mg G-TUBE TID 06/15/17 09/03/17 Baclofen 20 mg G-TUBE TID 06/15/17 09/03/17 Famotidine [Pepcid 20mg Tablet] 20 mg G-TUBE BID 06/15/17 09/03/17 Sennosides [Senna] 8.6 mg G-TUBE BID 06/15/17 09/03/17 Thiamine HCl 100 mg G-TUBE BID 06/15/17 09/03/17 risperiDONE [Risperdal 0.5mg 0.5 mg G-TUBE BID 06/15/17 09/03/17 tablet] Insulin Glargine,Hum.rec.anlog 10 unit SQ DAILY 08/16/17 09/03/17 [Insulin Glargine 100 Units/mL 3mL flexpen] Insulin Regular, Human [Humulin R 0 units SQ DIRECTED 08/16/17 09/03/17 Insulin 100 Units/mL 10mL Vial] Acetaminophen [Tylenol] 650 mg FEED TUBE Q6HP PRN 09/03/17 09/03/17 Bisoprolol Fumarate [Zebeta 5mg 5 mg FEED TUBE BID 09/03/17 09/03/17 tablet] Docusate Sodium [Colace] 100 mg FEED TUBE BID 09/03/17 09/03/17 Enoxaparin Sodium [Lovenox 40 mg SQ DAILY 09/03/17 09/03/17 40mg/0.4mL syringe] Ertapenem Sodium [Invanz 1gm Vial] 1 gm IV Q24H 09/03/17 09/03/17 Folic Acid/Vit B Complex and C 0.8 mg FEED TUBE DAILY 09/03/17 09/03/17 [Syeda-Byron Tablet] L. Acidophilus/L.bulgaricus 1 each FEED TUBE DAILY 09/03/17 09/03/17 [Floranex Tablet] Polyethylene Glycol 3350 [Miralax 17 gm FEED TUBE HS 09/03/17 09/03/17 17gm Packet] Tobramycin Sulfate [Tobramycin 360 mg IV Q24H 09/03/17 09/03/17 80mg/2mL Vial] Valproic Acid (As Sodium Salt) 250 mg FEED TUBE TID 09/03/17 09/03/17 [Valproic Acid] Allergies Allergy/AdvReac Type Severity Reaction Status Date / Time haloperidol [From Haldol] Allergy Verified 08/15/17 13:08 [facility] History I have reviewed the patient's past medical history: Yes Medical History: Reports:: Diabetes Mellitus Type 2, Seizures, Urinary Tract Infection Denies:: Chronic Obstructive Pulmonary Disease (COPD) Other Medical History: Reports: Anemia Comment: Traumatic brain injury many years ago, bedbound/total care patient Other Surgeries: Yes: Colostomy Comment: wound debridment - Social History Smoking Status: Former smoker Alcohol Intake: never Occupational Status: disabled Housing: [facility] Household Members: other - Psychiatric History Expresses thoughts of harming self/others: None Suicide Plan Description: No Plan Family Hx:: Diabetes, Heart Attack ROS Obtained: Yes All systems reviewed & no additional complaints, Yes Systems reviewed as appropriate & no additional complaints - Constitutional Constitutional: Reports body ache, Reports chills, Reports fever(s) - Respiratory Respiratory: Yes system reviewed and no additional complaints, except as docu, Yes as per HPI, Yes other ([facility] staff reported low Pox readings (79%)) Physical Exam - General General appearance: alert, in no apparent distress - Head Head exam: atraumatic, normocephalic, normal inspection - Neck Neck exam: Present: other (tracheostomy) - Chest Chest inspection: Present: normal inspection, symmetric chest wall rise - Respiratory Respiratory exam: Present: respiratory distress (mild), wheezes - Cardiovascular Cardiovascular exam: Present: regular rate, normal rhythm - Abdominal Exam Abdominal exam: Present: soft, distention, other (G -tube, colostomy, Jay catheter) - Neurological Exam Neurological exam: Present: alert, other (nonverbal, tetraplegic) - Skin Skin exam: Present: warm, dry, other (stage II presacral decubitus ulcer)
[2017-09-03 04:38] LABS: Microscopic, Urine URINE MICROSCOPIC (MICROSCOPIC)
[2017-09-03 04:41] LABS: Appearance,Urine CLEAR (Clear); Bilirubin,Urine Negative (Negative); Blood, Urine 3+ (Negative); Color,Urine YELLOW (Yellow); Glucose,Urine (UA) Negative (Negative); Ketones,Urine Negative (Negative); Leukocyte Esterase,Urine 1+ (Negative); PH,Urine 5.5 (5.0-8.5); Protein,Urine 2+ (Negative); Urobilinogen,Urine 0.2 EU/dl (0.2)
[2017-09-03 04:44] LABS: Albumin Level 2.1 gm/dL (3.4-5.0); Albumin/Globulin Ratio 0.4 (1.1-1.8); Anion Gap 14.3 mEq/L (5-15); Bilirubin,Total 0.3 mg/dL (0.2-1.0); Calcium 9.2 mg/dL (8.5-10.1); Globulin 5.4 gm/dl (1.3-3.2); Potassium 4.3 mmoL/L (3.5-5.1); Total Protein,Serum 7.5 gm/dL (6.4-8.2)
[2017-09-03 04:51] LABS: Basophils # 0.1 K/mm3 (0-0.2); Basophils % 0.5 % (0.1-2.0); Eosinophils # 0.1 K/mm3 (0.0-0.4); Eosinophils % 0.7 % (0.1-12.0); Hematocrit 38.9 % (42.0-52.0); Hemoglobin 12.3 g/dL (14.1-18.0); Lymphocytes # 2.5 K/mm3 (0.7-4.5); Lymphocytes % 20.8 K/mm3 (10-50); Mean Corpuscular HGB Conc 31.6 g/dL (31.8-35.4); Mean Corpuscular Hemoglobin 28.8 pg (27.0-31.2); Mean Corpuscular Volume 91.1 fl (80-94); Mean Platelet Volume 11.4 fl (7.4-10.4); Monocytes # 0.9 K/mm3 (0.1-1.0); Monocytes % 7.5 % (1.7-9.3); Neutrophils # 8.5 K/mm3 (1.8-7.8); Neutrophils % 70.4 % (37.0-80.0); Platelet Count 263 K/mm3 (142-424); Red Blood Count 4.26 M/mm3 (4.60-6.20); Red Cell Distribution Width 15.9 % (11.5-17.5); White Blood Count 12.1 K/mm3 (4.8-10.8)
[2017-09-03 04:56] LABS: Creatine Kinase 10 U/L (39-308)
[2017-09-03 06:04] LABS: Amorphous Sediment,Urine 1+ /lpf; Bacteria,Urine 2+ /lpf; RBC,Urine 20-50 #/hpf (0-3); WBC,Urine 20-50 #/hpf (0-3)
--- NOTE | 2017-09-03 07:13 | History & Physical Report ---
*Admission Date: 09/03/17 *Chief complaint: Decreased oxygen saturations *History of present illness: 41-year-old male with recent admission to this hospital for pneumonia was identified as having low O2 sats to 79% at the [facility]. Patient has a tracheostomy and is on FiO2 of 100% through the trach. O2 sats were apparently in the high 70s and patient was sent to this facility for further evaluation in the emergency department. In the emergency department patient was found to be febrile and workup revealed findings of new right middle lobe pneumonia. Patient was suctioned with significant volume of sputum that has been sent for culture. Patient has been admitted on broad-spectrum antibiotic coverage. He is nonverbal. Currently his O2 sats are in the high 80s and have been as high as the high 90s in the emergency department. [facility] History I have reviewed the patient's past medical history: Yes Medical History: Reports:: Diabetes Mellitus Type 2, Seizures, Urinary Tract Infection Denies:: Chronic Obstructive Pulmonary Disease (COPD) Other Medical History: Reports: Anemia Comment: Traumatic brain injury Other Surgeries: Yes: Colostomy - *Social History Smoking Status: Former smoker Alcohol Intake: never Occupational Status: disabled Housing: [facility] Household Members: other - Psychiatric History Expresses thoughts of harming self/others: None Suicide Plan Description: No Plan *Family Hx:: Diabetes, Heart Attack Review of Systems - Review of Systems Review of systems:: unable to obtain Meds Home Medications Medication Instructions Recorded Confirmed Type ALPRAZolam [Xanax 1mg tab] 1 mg G-TUBE TID 06/15/17 09/03/17 History Baclofen 20 mg G-TUBE TID 06/15/17 09/03/17 History Famotidine [Pepcid 20mg Tablet] 20 mg G-TUBE BID 06/15/17 09/03/17 History Sennosides [Senna] 8.6 mg G-TUBE BID 06/15/17 09/03/17 History Thiamine HCl 100 mg G-TUBE BID 06/15/17 09/03/17 History risperiDONE [Risperdal 0.5mg 0.5 mg G-TUBE BID 06/15/17 09/03/17 History tablet] Insulin Glargine,Hum.rec.anlog 10 unit SQ DAILY 08/16/17 09/03/17 History [Insulin Glargine 100 Units/mL 3mL flexpen] Insulin Regular, Human [Humulin R 0 units SQ DIRECTED 08/16/17 09/03/17 History Insulin 100 Units/mL 10mL Vial] Acetaminophen [Tylenol] 650 mg FEED TUBE Q6HP PRN 09/03/17 09/03/17 History Bisoprolol Fumarate [Zebeta 5mg 5 mg FEED TUBE BID 09/03/17 09/03/17 History tablet] Docusate Sodium [Colace] 100 mg FEED TUBE BID 09/03/17 09/03/17 History Enoxaparin Sodium [Lovenox 40 mg SQ DAILY 09/03/17 09/03/17 History 40mg/0.4mL syringe] Ertapenem Sodium [Invanz 1gm Vial] 1 gm IV Q24H 09/03/17 09/03/17 History Folic Acid/Vit B Complex and C 0.8 mg FEED TUBE DAILY 09/03/17 09/03/17 History [Syeda-Byron Tablet] L. Acidophilus/L.bulgaricus 1 each FEED TUBE DAILY 09/03/17 09/03/17 History [Floranex Tablet] Polyethylene Glycol 3350 [Miralax 17 gm FEED TUBE HS 09/03/17 09/03/17 History 17gm Packet] Tobramycin Sulfate [Tobramycin 360 mg IV Q24H 09/03/17 09/03/17 History 80mg/2mL Vial] Valproic Acid (As Sodium Salt) 250 mg FEED TUBE TID 09/03/17 09/03/17 History [Valproic Acid] Allergies Allergy/AdvReac Type Severity Reaction Status Date / Time haloperidol [From Haldol] Allergy Verified 08/15/17 13:08 Exam Vital signs and Labs for Last 24 Hours: Temp Pulse Resp BP Pulse Ox 100.4 F H 93 H 16 113/79 96 09/03/17 06:35 09/03/17 06:35 09/03/17 06:35 09/03/17 06:35 09/03/17 06:06 Narrative: Patient does not appear to be in any respiratory distress. He makes no attempts to talk. He can turn his head from side to side. Pupils are reactive to light. Oropharynx is dry. Neck is significant for his tracheostomy. Lungs have significantly diminished breath sounds in the right lung. Left lung is clear. Abdomen is soft, nontender, nontender. Extremities are warm. He does not move his arms or legs. Assessment and Plan (1) RML pneumonia Current visit: Yes Status: Acute Qualifiers: Aspiration pneumonia type: unspecified Category: Medical Code(s): J18.1 - Lobar pneumonia, unspecified organism (2) Atelectasis of right lung Current visit: No Status: Acute Category: Medical Code(s): J98.11 - Atelectasis (3) HCAP (healthcare-associated pneumonia) Current visit: No Status: Acute Category: Medical Code(s): J18.9 - Pneumonia, unspecified organism - Assessment and plan all Dx Assessment and Plan for all problems:: 1. Broad-spectrum antibiotic coverage with Invanz and tobramycin 2. Dietary consult for recommendation on tube feeds 3. Home medications.
--- NOTE | 2017-09-03 07:40 | Pharmacy Consult Notes ---
[facility] Pharmacy VTE Monitoring - Patient Demographics Admission date: 09/03/17 Report Date: 09/03/17 Time: 07:40 Allergies/Adverse Reactions: Patient Allergies haloperidol [From Haldol] Allergy (Verified 08/15/17 13:08) Height: 1.78 m Weight: 63.276 kg Patient Problems: Current Active Problems RML pneumonia (Acute) Fever (Acute) - VTE Risk Labs: VTE Related Lab Results Hgb 12.3 g/dL (14.1-18.0) L 09/03/17 03:55 Hct 38.9 % (42.0-52.0) L 09/03/17 03:55 Plt Count 263 K/mm3 (142-424) 09/03/17 03:55 BUN 43 mg/dL (7-18) H 09/03/17 03:55 Creatinine 1.17 mg/dL (0.70-1.30) 09/03/17 03:55 Estimated Creat Clear 74 mL/min (0-300) 09/03/17 03:55 - Prophylaxis VTE Prophylaxis Ordered?: Yes Types of VTE Prophylaxis: Pharmacological Pharmacologic Type: Enoxaparin - VTE Diagnosis Confirmed Treatment or plan recommended: Continue Current Treatment
--- NOTE | 2017-09-03 09:56 | Pharmacy Consult Notes ---
- Pharmacy Consult Date: 09/03/17 Time: 09:54 Referring provider: DR. DUTTON Reason for Consult:: TOBRAMYCIN DOSING Allergies and ADEs:: Allergies Allergy/AdvReac Type Severity Reaction Status Date / Time haloperidol [From Haldol] Allergy Verified 08/15/17 13:08 Home Medications:: Home Medications Medication Instructions Recorded Confirmed Type ALPRAZolam [Xanax 1mg tab] 1 mg G-TUBE TID 06/15/17 09/03/17 History Baclofen 20 mg G-TUBE TID 06/15/17 09/03/17 History Famotidine [Pepcid 20mg Tablet] 20 mg G-TUBE BID 06/15/17 09/03/17 History Sennosides [Senna] 8.6 mg G-TUBE BID 06/15/17 09/03/17 History Thiamine HCl 100 mg G-TUBE BID 06/15/17 09/03/17 History risperiDONE [Risperdal 0.5mg 0.5 mg G-TUBE BID 06/15/17 09/03/17 History tablet] Insulin Glargine,Hum.rec.anlog 10 unit SQ DAILY 08/16/17 09/03/17 History [Insulin Glargine 100 Units/mL 3mL flexpen] Insulin Regular, Human [Humulin R 0 units SQ DIRECTED 08/16/17 09/03/17 History Insulin 100 Units/mL 10mL Vial] Acetaminophen [Tylenol] 650 mg FEED TUBE Q6HP PRN 09/03/17 09/03/17 History Bisoprolol Fumarate [Zebeta 5mg 5 mg FEED TUBE BID 09/03/17 09/03/17 History tablet] Docusate Sodium [Colace] 100 mg FEED TUBE BID 09/03/17 09/03/17 History Enoxaparin Sodium [Lovenox 40 mg SQ DAILY 09/03/17 09/03/17 History 40mg/0.4mL syringe] Ertapenem Sodium [Invanz 1gm Vial] 1 gm IV Q24H 09/03/17 09/03/17 History Folic Acid/Vit B Complex and C 0.8 mg FEED TUBE DAILY 09/03/17 09/03/17 History [Syeda-Byron Tablet] L. Acidophilus/L.bulgaricus 1 each FEED TUBE DAILY 09/03/17 09/03/17 History [Floranex Tablet] Polyethylene Glycol 3350 [Miralax 17 gm FEED TUBE HS 09/03/17 09/03/17 History 17gm Packet] Tobramycin Sulfate [Tobramycin 360 mg IV Q24H 09/03/17 09/03/17 History 80mg/2mL Vial] Valproic Acid (As Sodium Salt) 250 mg FEED TUBE TID 09/03/17 09/03/17 History [Valproic Acid] levETIRAcetam [Levetiracetam] 1,000 mg G-TUBE BID 09/03/17 09/03/17 History Height: 1.78 m Weight: 63.276 kg Laboratory Results:: TOBRAMYCIN LEVEL RANDOM 0.3 MCG/ML AT 0355 THIS AM. Medical History: Reports:: Diabetes Mellitus Type 2, MRSA (SPUTUM), Seizures, Urinary Tract Infection Denies:: Chronic Obstructive Pulmonary Disease (COPD) Assessment and Plan (1) RML pneumonia Current visit: Yes Status: Acute Qualifiers: Aspiration pneumonia type: unspecified Category: Medical Code(s): J18.1 - Lobar pneumonia, unspecified organism (2) Atelectasis of right lung Current visit: No Status: Acute Category: Medical Code(s): J98.11 - Atelectasis (3) HCAP (healthcare-associated pneumonia) Current visit: No Status: Acute Category: Medical Code(s): J18.9 - Pneumonia, unspecified organism - Assessment and plan all Dx Assessment and Plan for all problems:: RECOMMEND STARTING WITH TOBRAMYCIN 360 MG Q24H AT THIS TIME. WILL OBTAIN 4 AND 12 HOUR POST INFUSION LEVEL TO DETERMINE CLEARANCE. PHARMACY WILL FOLLOW DAILY AND ADJUST APPROPRIATE. BRUNA YOO, PHARMD
[2017-09-04 06:18] LABS: Basophils # 0.1 K/mm3 (0-0.2); Basophils % 0.4 % (0.1-2.0); Eosinophils # 0.1 K/mm3 (0.0-0.4); Hematocrit 32.2 % (42.0-52.0); Hemoglobin 9.9 g/dL (14.1-18.0); Lymphocytes # 2.7 K/mm3 (0.7-4.5); Lymphocytes % 21.8 K/mm3 (10-50); Mean Corpuscular HGB Conc 30.9 g/dL (31.8-35.4); Mean Corpuscular Volume 90.6 fl (80-94); Mean Platelet Volume 11.5 fl (7.4-10.4); Monocytes # 0.7 K/mm3 (0.1-1.0); Monocytes % 5.7 % (1.7-9.3); Neutrophils # 8.9 K/mm3 (1.8-7.8); Neutrophils % 71.1 % (37.0-80.0); Platelet Count 262 K/mm3 (142-424); Red Blood Count 3.55 M/mm3 (4.60-6.20); Red Cell Distribution Width 15.8 % (11.5-17.5); White Blood Count 12.5 K/mm3 (4.8-10.8)
--- NOTE | 2017-09-04 06:40 | Progress Note ---
Internal Medicine - PN: Subj *Date: 09/04/17 *Time: 06:38 Interval history: Patient has remained stable over the last 24 hours. Fever curve is trending down. Exam Vital signs and Labs for Last 24 Hours: Temp Pulse Resp BP Pulse Ox 99.9 F H 73 16 110/70 98 09/04/17 04:00 09/04/17 04:00 09/04/17 04:00 09/04/17 04:00 09/04/17 04:00 Laboratory Results - last 24 hr 09/03/17 07:09: POC Glucose 179 H 09/03/17 11:43: POC Glucose 134 H 09/03/17 15:02: Random Tobramycin 13.7 09/03/17 17:00: POC Glucose 106 09/03/17 21:44: POC Glucose 187 H 09/03/17 23:58: Random Tobramycin 7.9 09/04/17 04:49: POC Glucose 201 H I & O for Last 24 hours: Intake & Output 09/01/17 09/02/17 09/03/17 09/04/17 11:59 11:59 11:59 11:59 Intake Total 1101 / 1101 Output Total 680 / 680 Balance 421 / 421 Weight 139 lb 8 oz 139 lb 7.995 oz Microbiology Reports for the Last 24 Hours: Urine is showing a gram-negative corine Narrative: Patient appears comfortable in bed. There is watery yellow mucus oozing from around his trachea. Lungs are similar to yesterday with diminished breath sounds in the right midlung and clear sounds on the left Assessment and Plan (1) RML pneumonia Current visit: Yes Status: Acute Qualifiers: Aspiration pneumonia type: unspecified Category: Medical Code(s): J18.1 - Lobar pneumonia, unspecified organism (2) Atelectasis of right lung Current visit: No Status: Acute Category: Medical Code(s): J98.11 - Atelectasis (3) HCAP (healthcare-associated pneumonia) Current visit: No Status: Acute Category: Medical Code(s): J18.9 - Pneumonia, unspecified organism (4) Urinary tract infection Current visit: Yes Status: Acute Category: Medical Code(s): N39.0 - Urinary tract infection, site not specified - Assessment and plan all Dx Assessment and Plan for all problems:: Continue broad-spectrum antibiotic coverage.
[2017-09-04 06:49] LABS: Anion Gap 14.5 mEq/L (5-15); Potassium 4.5 mmoL/L (3.5-5.1)
--- NOTE | 2017-09-04 09:43 | Pharmacy Consult Notes ---
- Pharmacy Consult Date: 09/04/17 Time: 09:35 Referring provider: DR. DUTTON Reason for Consult:: TOBRAMYCIN LEVELS Allergies and ADEs:: Allergies Allergy/AdvReac Type Severity Reaction Status Date / Time haloperidol [From Haldol] Allergy Verified 08/15/17 13:08 Home Medications:: Home Medications Medication Instructions Recorded Confirmed Type ALPRAZolam [Xanax 1mg tab] 1 mg G-TUBE TID 06/15/17 09/03/17 History Baclofen 20 mg G-TUBE TID 06/15/17 09/03/17 History Famotidine [Pepcid 20mg Tablet] 20 mg G-TUBE BID 06/15/17 09/03/17 History Sennosides [Senna] 8.6 mg G-TUBE BID 06/15/17 09/03/17 History Thiamine HCl 100 mg G-TUBE BID 06/15/17 09/03/17 History risperiDONE [Risperdal 0.5mg 0.5 mg G-TUBE BID 06/15/17 09/03/17 History tablet] Insulin Glargine,Hum.rec.anlog 10 unit SQ DAILY 08/16/17 09/03/17 History [Insulin Glargine 100 Units/mL 3mL flexpen] Insulin Regular, Human [Humulin R 0 units SQ DIRECTED 08/16/17 09/03/17 History Insulin 100 Units/mL 10mL Vial] Acetaminophen [Tylenol] 650 mg FEED TUBE Q6HP PRN 09/03/17 09/03/17 History Bisoprolol Fumarate [Zebeta 5mg 5 mg FEED TUBE BID 09/03/17 09/03/17 History tablet] Docusate Sodium [Colace] 100 mg FEED TUBE BID 09/03/17 09/03/17 History Enoxaparin Sodium [Lovenox 40 mg SQ DAILY 09/03/17 09/03/17 History 40mg/0.4mL syringe] Ertapenem Sodium [Invanz 1gm Vial] 1 gm IV Q24H 09/03/17 09/03/17 History Folic Acid/Vit B Complex and C 0.8 mg FEED TUBE DAILY 09/03/17 09/03/17 History [Syeda-Byron Tablet] L. Acidophilus/L.bulgaricus 1 each FEED TUBE DAILY 09/03/17 09/03/17 History [Floranex Tablet] Polyethylene Glycol 3350 [Miralax 17 gm FEED TUBE HS 09/03/17 09/03/17 History 17gm Packet] Tobramycin Sulfate [Tobramycin 360 mg IV Q24H 09/03/17 09/03/17 History 80mg/2mL Vial] Valproic Acid (As Sodium Salt) 250 mg FEED TUBE TID 09/03/17 09/03/17 History [Valproic Acid] levETIRAcetam [Levetiracetam] 1,000 mg G-TUBE BID 09/03/17 09/03/17 History Height: 1.78 m Weight: 63.276 kg Laboratory Results:: Laboratory Results - last 24 hr 09/03/17 07:09: POC Glucose 179 H 09/03/17 11:43: POC Glucose 134 H 09/03/17 15:02: Random Tobramycin 13.7 09/03/17 17:00: POC Glucose 106 09/03/17 21:44: POC Glucose 187 H 09/03/17 23:58: Random Tobramycin 7.9 09/04/17 04:49: POC Glucose 201 H 09/04/17 05:40: WBC 12.5 H, RBC 3.55 L, Hgb 9.9 L, Hct 32.2 L, MCV 90.6, MCH 28.0, MCHC 30.9 L, RDW 15.8, Plt Count 262, MPV 11.5 H, Neut % (Auto) 71.1, Lymph % (Auto) 21.8, [place] % (Auto) 5.7, Eos % (Auto) 1.0, Baso % (Auto) 0.4, Neut # (Auto) 8.9 H, Lymph # (Auto) 2.7, [place] # (Auto) 0.7, Eos # (Auto) 0.1, Baso # (Auto) 0.1 09/04/17 05:40: Sodium 143, Potassium 4.5, Chloride 106, Carbon Dioxide 27, Anion Gap 14.5, BUN 63 H D, Creatinine 1.44 H D, Estimated Creat Clear 59, Estimated GFR 54 L, Est GFR ( Amer) 65 D, Glucose 207 H Medical History: Reports:: Diabetes Mellitus Type 2, MRSA (SPUTUM), Seizures, Urinary Tract Infection Denies:: Chronic Obstructive Pulmonary Disease (COPD) Assessment and Plan (1) RML pneumonia Current visit: Yes Status: Acute Qualifiers: Aspiration pneumonia type: unspecified Category: Medical Code(s): J18.1 - Lobar pneumonia, unspecified organism (2) Atelectasis of right lung Current visit: No Status: Acute Category: Medical Code(s): J98.11 - Atelectasis (3) HCAP (healthcare-associated pneumonia) Current visit: No Status: Acute Category: Medical Code(s): J18.9 - Pneumonia, unspecified organism (4) Urinary tract infection Current visit: Yes Status: Acute Category: Medical Code(s): N39.0 - Urinary tract infection, site not specified - Assessment and plan all Dx Assessment and Plan for all problems:: TOBRAMYCIN LEVELS: 4-HOUR: 13.7 MCG/ML CALCULATED PEAK: 16.45 MCG/ML 13-HOUR: 7.9 MCG/ML CALCULATED TROUGH: 4.04 MCG/ML SRCR: INCREASED FROM 1.17 MG/DL TO 1.44 MG/DL BASED ON LEVELS AND PATIENT FACTORS, RECOMMEND EXTENDING THE INTERVAL TO TOBRAMYCIN 360 MG IV Q48H TO REACH A TROUGH LEVEL < 1.0 MCG/ML. PHARMACY WILL CONTINUE TO MONITOR DAILY AND ADJUST APPROPRIATE.
[2017-09-05 06:16] LABS: Basophils # 0.1 K/mm3 (0-0.2); Basophils % 0.5 % (0.1-2.0); Eosinophils # 0.3 K/mm3 (0.0-0.4); Eosinophils % 3.7 % (0.1-12.0); Hematocrit 30.5 % (42.0-52.0); Hemoglobin 9.4 g/dL (14.1-18.0); Lymphocytes # 2.6 K/mm3 (0.7-4.5); Lymphocytes % 29.5 K/mm3 (10-50); Mean Corpuscular HGB Conc 30.8 g/dL (31.8-35.4); Mean Corpuscular Hemoglobin 28.1 pg (27.0-31.2); Mean Corpuscular Volume 91.3 fl (80-94); Mean Platelet Volume 11.1 fl (7.4-10.4); Monocytes # 0.6 K/mm3 (0.1-1.0); Monocytes % 6.5 % (1.7-9.3); Neutrophils # 5.2 K/mm3 (1.8-7.8); Neutrophils % 59.8 % (37.0-80.0); Platelet Count 243 K/mm3 (142-424); Red Blood Count 3.34 M/mm3 (4.60-6.20); Red Cell Distribution Width 15.6 % (11.5-17.5); White Blood Count 8.7 K/mm3 (4.8-10.8)
--- NOTE | 2017-09-05 07:23 | Progress Note ---
Internal Medicine - PN: Subj *Date: 09/05/17 *Time: 07:20 Interval history: There has been little change in the patient's condition. Nursing staff reports a fever to 101 yesterday afternoon for which he was given Tylenol. Blood and sputum and urine cultures have all returned. Antibiotics will be adjusted this morning. Exam Vital signs and Labs for Last 24 Hours: Temp Pulse Resp BP Pulse Ox 98.3 F 59 L 18 108/64 99 09/05/17 04:00 09/05/17 04:00 09/05/17 04:00 09/05/17 04:00 09/05/17 06:43 Laboratory Results - last 24 hr 09/04/17 11:10: POC Glucose 208 H 09/04/17 17:19: POC Glucose 178 H 09/04/17 23:13: POC Glucose 162 H 09/05/17 05:12: POC Glucose 185 H 09/05/17 05:40: WBC 8.7 D, RBC 3.34 L, Hgb 9.4 L, Hct 30.5 L, MCV 91.3, MCH 28.1, MCHC 30.8 L, RDW 15.6, Plt Count 243, MPV 11.1 H, Neut % (Auto) 59.8, Lymph % (Auto) 29.5, [place] % (Auto) 6.5, Eos % (Auto) 3.7, Baso % (Auto) 0.5, Neut # (Auto) 5.2, Lymph # (Auto) 2.6, [place] # (Auto) 0.6, Eos # (Auto) 0.3, Baso # (Auto) 0.1 I & O for Last 24 hours: Intake & Output 09/02/17 09/03/17 09/04/17 09/05/17 11:59 11:59 11:59 11:59 Intake Total 1101 / 1101 2049 Output Total 1480 / 1480 600 / 600 Balance -379 / -379 1450 / 1450 Weight 139 lb 8 oz 139 lb 7.995 oz Narrative: He appears comfortable. Lung exam is significant for rhonchi with some improved aeration in the right midlung. Heart has a regular rate and rhythm. Assessment and Plan (1) RML pneumonia Current visit: Yes Status: Acute Qualifiers: Aspiration pneumonia type: unspecified Category: Medical Code(s): J18.1 - Lobar pneumonia, unspecified organism (2) Atelectasis of right lung Current visit: No Status: Acute Category: Medical Code(s): J98.11 - Atelectasis (3) HCAP (healthcare-associated pneumonia) Current visit: No Status: Acute Category: Medical Code(s): J18.9 - Pneumonia, unspecified organism (4) Pseudomonas urinary tract infection Current visit: Yes Status: Acute Category: Medical Code(s): N39.0 - Urinary tract infection, site not specified; B96.5 - Pseudomonas (aeruginosa) ( mallei) (pseudomallei) as the cause of diseases classified elsewhere (5) E. coli sepsis Current visit: No Status: Acute Category: Medical Code(s): A41.51 - Sepsis due to Escherichia coli [E. coli] (6) Pseudomonal pneumonia Current visit: No Status: Acute Category: Medical Code(s): J15.1 - Pneumonia due to Pseudomonas - Assessment and plan all Dx Assessment and Plan for all problems:: 1. Adjust antibiotics. Discontinue Invanz and start cefepime. Continue tobramycin although dosing has been adjusted due to tobramycin levels 2. Continue to monitor fevers 3. Suction as needed 4. Repeat chest x-ray today
[2017-09-06 05:56] LABS: Basophils % 0.4 % (0.1-2.0); Eosinophils # 0.2 K/mm3 (0.0-0.4); Eosinophils % 3.1 % (0.1-12.0); Hemoglobin 8.9 g/dL (14.1-18.0); Lymphocytes # 2.4 K/mm3 (0.7-4.5); Lymphocytes % 31.3 K/mm3 (10-50); Mean Corpuscular HGB Conc 31.1 g/dL (31.8-35.4); Mean Corpuscular Hemoglobin 28.3 pg (27.0-31.2); Mean Corpuscular Volume 91.1 fl (80-94); Mean Platelet Volume 11.3 fl (7.4-10.4); Monocytes # 0.4 K/mm3 (0.1-1.0); Monocytes % 5.6 % (1.7-9.3); Neutrophils # 4.6 K/mm3 (1.8-7.8); Neutrophils % 59.5 % (37.0-80.0); Platelet Count 269 K/mm3 (142-424); Red Blood Count 3.14 M/mm3 (4.60-6.20); Red Cell Distribution Width 15.4 % (11.5-17.5); White Blood Count 7.8 K/mm3 (4.8-10.8)
[2017-09-06 06:00] LABS: Hematocrit 28.6 % (42.0-52.0)
--- NOTE | 2017-09-06 07:20 | Discharge Summary ---
General - General Admission date: 09/03/17 Discharge date: 09/06/17 HPI HPI: 41-year-old male with recent admission to this hospital for pneumonia was identified as having low O2 sats to 79% at the long term where he resides. Patient has a tracheostomy and is on FiO2 of 100% through the trach. O2 sats were apparently in the high 70s and patient was sent to this facility for further evaluation in the emergency department. In the emergency department patient was found to be febrile and workup revealed findings of new right middle lobe pneumonia. Patient was suctioned with significant volume of sputum that has been sent for culture. Patient has been admitted on broad-spectrum antibiotic coverage. He is nonverbal. Currently his O2 sats are in the high 80s and have been as high as the high 90s in the emergency department. Hospital Course Hospital Course: Patient was admitted and placed on Invanz and tobramycin to treat right-sided pneumonia. Blood, urine, sputum cultures were obtained. Over 24 hours patient defervesced. White count also decreased from 12,000 8000. Tube feeds were continued during hospitalization without complications. Ultimately blood cultures returned growing a species of E. coli that was resistant to all antibiotics except for an intermediate sensitivity to tobramycin. Sputum grew a species of Pseudomonas that was sensitive to tobramycin. Urine culture grew a species of Pseudomonas that was sensitive to cefepime and tobramycin. Once cultures had returned patient's antibiotics were adjusted to include cefepime and tobramycin. Tobramycin was monitored by pharmacy. Patient showed gradual improvement in his dyspnea. He was continued on his baseline level of oxygen through his trach collar. Repeat chest x-ray performed on the showed improvement in the pneumonia in the right lung. On the he was deemed medically appropriate for discharge. This patient's prognosis overall is poor due to the appearance of resistant organisms in his blood and sputum and urine he should complete a two-week course of tobramycin to be monitored by his primary care provider at the long term. He should continue a full 2 week course of cefepime 2 g every 12 hours. It would be my recommendation that once this treatment is completed should the patient show recurrent signs of infection that palliation be the focus of care and consideration should be given to hospice. Patient will be discharged back to [facility] today. Mental status: At baseline Rehab potential: Poor Prognosis: Poor Objective Vital signs: Temp Pulse Resp BP Pulse Ox 98.6 F 59 L 16 112/64 97 09/06/17 04:00 09/06/17 04:00 09/06/17 04:00 09/06/17 04:00 09/06/17 04:00 Results Labs on day of discharge: Labs from last 24 hours 09/05/17 09/05/17 09/05/17 23:09 16:16 11:36 POC Glucose 184 H 174 H 185 H Microbiology 09/03/17 03:14 Urine,Clean Catch Urine Culture - Final Pseudomonas aeruginosa 09/03/17 03:14 Sputum - Endotracheal Tube Aspirate Gram Stain - Final 09/03/17 03:14 Sputum - Endotracheal Tube Aspirate Sputum Culture - Final Pseudomonas aeruginosa 09/03/17 03:56 Blood Blood Culture - Final Escherichia coli 09/03/17 03:44 Blood Blood Culture - Final Escherichia coli DS: Diagnosis - Discharge Diagnosis (1) RML pneumonia Status: Acute (2) Atelectasis of right lung Status: Acute (3) HCAP (healthcare-associated pneumonia) Status: Acute (4) Pseudomonas urinary tract infection Status: Acute (5) E. coli sepsis Status: Acute (6) Pseudomonal pneumonia Status: Acute Discharge Plan - Patient Discharge Instructions ACTIVITY: Continue current activity DIET: continue same diet - Follow up Plan Disposition: [facility] Home Medications: Home Medications Medication Instructions Recorded Confirmed Type ALPRAZolam [Xanax 1mg tab] 1 mg G-TUBE TID 06/15/17 09/03/17 History Baclofen 20 mg G-TUBE TID 06/15/17 09/03/17 History Famotidine [Pepcid 20mg Tablet] 20 mg G-TUBE BID 06/15/17 09/03/17 History Sennosides [Senna] 8.6 mg G-TUBE BID 06/15/17 09/03/17 History Thiamine HCl 100 mg G-TUBE BID 06/15/17 09/03/17 History risperiDONE [Risperdal 0.5mg 0.5 mg G-TUBE BID 06/15/17 09/03/17 History tablet] Insulin Glargine,Hum.rec.anlog 10 unit SQ DAILY 08/16/17 09/03/17 History [Insulin Glargine 100 Units/mL 3mL flexpen] Insulin Regular, Human [Humulin R 0 units SQ DIRECTED 08/16/17 09/03/17 History Insulin 100 Units/mL 10mL Vial] Acetaminophen [Tylenol] 650 mg FEED TUBE Q6HP PRN 09/03/17 09/03/17 History Bisoprolol Fumarate [Zebeta 5mg 5 mg FEED TUBE BID 09/03/17 09/03/17 History tablet] Docusate Sodium [Colace] 100 mg FEED TUBE BID 09/03/17 09/03/17 History Enoxaparin Sodium [Lovenox 40 mg SQ DAILY 09/03/17 09/03/17 History 40mg/0.4mL syringe] Ertapenem Sodium [Invanz 1gm Vial] 1 gm IV Q24H 09/03/17 09/03/17 History Folic Acid/Vit B Complex and C 0.8 mg FEED TUBE DAILY 09/03/17 09/03/17 History [Syeda-Byron Tablet] L. Acidophilus/L.bulgaricus 1 each FEED TUBE DAILY 09/03/17 09/03/17 History [Floranex Tablet] Polyethylene Glycol 3350 [Miralax 17 gm FEED TUBE HS 09/03/17 09/03/17 History 17gm Packet] Tobramycin Sulfate [Tobramycin 360 mg IV Q24H 09/03/17 09/03/17 History 80mg/2mL Vial] Valproic Acid (As Sodium Salt) 250 mg FEED TUBE TID 09/03/17 09/03/17 History [Valproic Acid] levETIRAcetam [Levetiracetam] 1,000 mg G-TUBE BID 09/03/17 09/03/17 History Prescriptions/Medication Reconciliation: New Ertapenem Sodium [Invanz 1gm Vial] 1 gm IV Q24H vial Tobramycin Sulfate [Tobramycin 80mg/2mL Vial] 360 mg IV Q48H ml Continue Thiamine HCl 100 mg G-TUBE BID risperiDONE [Risperdal 0.5mg tablet] 0.5 mg G-TUBE BID Famotidine [Pepcid 20mg Tablet] 20 mg G-TUBE BID Baclofen 20 mg G-TUBE TID ALPRAZolam [Xanax 1mg tab] 1 mg G-TUBE TID Insulin Glargine,Hum.rec.anlog [Insulin Glargine 100 Units/mL 3mL flexpen] 10 unit SQ DAILY Enoxaparin Sodium [Lovenox 40mg/0.4mL syringe] 40 mg SQ DAILY L. Acidophilus/L.bulgaricus [Floranex Tablet] 1 each FEED TUBE DAILY Valproic Acid (As Sodium Salt) [Valproic Acid] 250 mg FEED TUBE TID Acetaminophen [Tylenol] 650 mg FEED TUBE Q6HP PRN PRN Reason: fever/pain Bisoprolol Fumarate [Zebeta 5mg tablet] 5 mg FEED TUBE BID Folic Acid/Vit B Complex and C [Syeda-Byron Tablet] 0.8 mg FEED TUBE DAILY levETIRAcetam [Levetiracetam] 1,000 mg G-TUBE BID Sennosides [Senna] 8.6 mg G-TUBE BID Insulin Regular, Human [Humulin R Insulin 100 Units/mL 10mL Vial] 0 units SQ DIRECTED Polyethylene Glycol 3350 [Miralax 17gm Packet] 17 gm FEED TUBE HS Docusate Sodium [Colace] 100 mg FEED TUBE BID Discontinued Tobramycin Sulfate [Tobramycin 80mg/2mL Vial] 360 mg IV Q24H Ertapenem Sodium [Invanz 1gm Vial] 1 gm IV Q24H
== END 2017-09-06 10:39 ==
LOC: ER 03:14 → 2ND 03:14 → OBSVTOIN 05:47 → 2ND 06:35
PROVIDERS: ADMIT Family Medicine; ATTEND Family Medicine

== ENCOUNTER 2017-09-08 10:23 | Inpatient (IN) ==
[2017-09-08 10:51] LABS: Basophils # 0.1 K/mm3 (0-0.2); Basophils % 0.8 % (0.1-2.0); Eosinophils # 0.2 K/mm3 (0.0-0.4); Eosinophils % 0.9 % (0.1-12.0); Hemoglobin 11.1 g/dL (14.1-18.0); Lymphocytes # 1.8 K/mm3 (0.7-4.5); Lymphocytes % 9.8 K/mm3 (10-50); Mean Corpuscular HGB Conc 30.9 g/dL (31.8-35.4); Mean Corpuscular Hemoglobin 28.2 pg (27.0-31.2); Mean Corpuscular Volume 91.3 fl (80-94); Mean Platelet Volume 10.2 fl (7.4-10.4); Monocytes # 1.1 K/mm3 (0.1-1.0); Monocytes % 6.3 % (1.7-9.3); Neutrophils # 14.8 K/mm3 (1.8-7.8); Neutrophils % 82.3 % (37.0-80.0); Platelet Count 428 K/mm3 (142-424); Red Blood Count 3.94 M/mm3 (4.60-6.20); Red Cell Distribution Width 15.8 % (11.5-17.5)
[2017-09-08 11:11] LABS: Albumin/Globulin Ratio 0.4 (1.1-1.8); Anion Gap 14.4 mEq/L (5-15); Calcium 9.4 mg/dL (8.5-10.1); Globulin 5.7 gm/dl (1.3-3.2); Potassium 4.4 mmoL/L (3.5-5.1); Total Protein,Serum 7.7 gm/dL (6.4-8.2)
[2017-09-08 11:23] LABS: Bilirubin,Total 0.1 mg/dL (0.2-1.0)
[2017-09-08 11:44] LABS: Lymphocytes % 6 % (10-50); Monocytes % 4 % (2-9); Neutrophils % 88 % (42-76); Total Cells Counted 100
--- NOTE | 2017-09-08 12:10 | Emergency Department Note ---
ED Disposition Clinical Impression: Healthcare-associated pneumonia Sepsis Qualifiers: Sepsis type: sepsis due to unspecified organism Qualified Code(s): A41.9 - Sepsis, unspecified organism Disposition: Still a Patient Condition on Discharge: Serious - Critical Care Critical Care Time: Yes Attestation: On 09/08/17, the high probability of a clinically significant, sudden or life threatening deterioration of the following system(s) required my full and direct attention, intervention and personal management. The time I documented below is in addition to time spent performing reported procedures but includes the following listed in this critical care notation. Total Critical Care Time: 33 Vital system(s) involved:: Circulatory Failure, Shock (Septic) My critical care processes included: Assessment & monitoring of V/S, Initial and Re-exams, Data Review/Interpretation, Coordinating Care, Medication Orders and management, Documentation Medical Decision Making - Twin Inquiry Pt receiving controlled substance: No Vital Signs: 09/08/17 10:28 09/08/17 11:13 09/08/17 11:22 Temperature 98.1 F Temperature Source Oral Pulse Rate 90 Pulse Rate [Right Brachial] 102 H 98 H Respiratory Rate 18 36 H Blood Pressure [Right Arm] 128/70 121/71 Blood Pressure Mean [Right Arm] 89 87 Blood Pressure Source [Right Arm] Automatic Cuff Automatic Cuff Blood Pressure Position [Right Arm] Sitting Supine 02 Sat by Pulse Oximetry 95 97 Oxygen Delivery Method Room Air Trach Collar/ Tube Trach Collar/ Tube Oxygen Flow Rate (LPM) 5 - Lab Data Lab Results 09/08/17 10:42: WBC 18.0 H D, RBC 3.94 L D, Hgb 11.1 L, Hct 36.0 L, MCV 91.3, MCH 28.2, MCHC 30.9 L, RDW 15.8, Plt Count 428 H D, MPV 10.2, Neut % (Auto) 82.3 H, Lymph % (Auto) 9.8 L, [place] % (Auto) 6.3, Eos % (Auto) 0.9, Baso % (Auto ) 0.8, Neut # (Auto) 14.8 H, Lymph # (Auto) 1.8, [place] # (Auto) 1.1 H, Eos # ( Auto) 0.2, Baso # (Auto) 0.1, Total Counted 100, Neutrophils % (Manual) 88 H, Band Neutrophils % 2.0, Lymphocytes % (Manual) 6 L, Monocytes % (Manual) 4, Platelet Estimate Slight increase, RBC Morphology Not Reportable 09/08/17 10:42: Sodium 146 H, Potassium 4.4, Chloride 109 H, Carbon Dioxide 27, Anion Gap 14.4, BUN 42 H, Creatinine 0.95, Estimated Creat Clear 68, Estimated GFR 86, Est GFR ( Amer) 104, Glucose 239 H, Calcium 9.4, Total Bilirubin 0.1 L, AST 18, ALT 13, Alkaline Phosphatase 88, Total Protein 7.7, Albumin 2.0 L , Globulin 5.7 H, Albumin/Globulin Ratio 0.4 L 09/08/17 10:42: Lactic Acid 2.1 H Result diagrams: 09/08/17 10:42 09/08/17 10:42 Orders (Tests/Meds): ED MEDICATIONS Discontinued Medications Generic Name Dose Route Start Last Admin Trade Name Freq PRN Reason Stop Dose Admin Sodium Chloride 1,000 mls @ 999 mls/hr 09/08/17 12:45 09/08/17 12:39 Sod Chlor 0.9% 1000ml Bag IV 09/08/17 13:45 999 mls/hr .Q1H1M JENNIFER Administration Sodium Chloride 1,000 mls @ 999 mls/hr 09/08/17 13:45 09/08/17 13:47 Sod Chlor 0.9% 1000ml Bag IV 09/08/17 14:45 999 mls/hr .Q1H1M JENNIFER Administration Sodium Chloride 3 ml 09/08/17 10:36 Sodium Choride 3ml Neb Soln IH 09/08/17 10:37 ONCE ONE ORDERS Category Date Time Status Blood Culture Stat Micro 09/08/17 10:42 Received Sputum Culture & Gram Stain Stat Micro 09/08/17 Results - Radiology Data #1 Image(s): Chest Image Reviewed: Yes I reviewed the patient's radiology image Compared to multiple prior x-rays, several recently, persistent right lower lobe airspace disease with increased density in the right perihilar area. Medical Decision Narrative: 1:55 PM: I have discussed the case with Dr. Sharp who agrees to admit the patient to the hospital. We discussed the patient's clinical information, including history, exam, laboratory and radiology results and ED course. Per hospital procedure, I will write temporary bridge inpatient orders on the patient. Specific orders requested by the admitting physician: Normal saline at 150 cc/h after second liter bolus. Continue tobramycin and cefepime, add vancomycin. General Adult HPI - General Chief complaint: Upper Respiratory Infection Stated complaint: INCREASED RESP RATE Time Seen by Provider: 09/08/17 12:10 Mode of Arrival: EMS Limitations: No Limitations Description of Symptoms (Recalled from ER Triage Doc. by RN): INCREASED RESP. RATE. [place] NURSE STATES THAT WHERE PATIENT IS [employer] AND THEY ARE TRYING TO GET HOSPICE APPROVAL, THEY HAVE TO SEND HIM TO BE EVALUATED EVERY TIME HE DE- SATS OR INCR RESP RATE - History of Present Illness HPI narrative: Patient is brought in from [facility]. He was admitted here 09/03/17 through 09/06/17 for pneumonia in his right lung. He is currently on intravenous tobramycin and cefepime. He is sent in because of increased respiratory rate and decreased O2 saturation. He was suctioned during transport and respiratory status has improved with decreased respiratory rate and increased oxygen saturation. He is unable to give any further history himself. He is chronically debilitated, has paraplegia, tracheostomy, G-tube, Jay catheter, and currently has a PICC line for intravenous antibiotics. - Related Data Home Medications Medication Instructions Recorded Confirmed ALPRAZolam [Xanax 1mg tab] 1 mg G-TUBE TID 06/15/17 09/08/17 Baclofen 20 mg G-TUBE TID 06/15/17 09/08/17 Famotidine [Pepcid 20mg Tablet] 20 mg G-TUBE BID 06/15/17 09/08/17 Sennosides [Senna] 8.6 mg G-TUBE BID 06/15/17 09/08/17 Thiamine HCl 100 mg G-TUBE BID 06/15/17 09/08/17 risperiDONE [Risperdal 0.5mg 0.5 mg G-TUBE BID 06/15/17 09/08/17 tablet] Insulin Glargine,Hum.rec.anlog 10 unit SQ DAILY 08/16/17 09/08/17 [Insulin Glargine 100 Units/mL 3mL flexpen] Insulin Regular, Human [Humulin R 0 units SQ DIRECTED 08/16/17 09/08/17 Insulin 100 Units/mL 10mL Vial] Acetaminophen [Tylenol] 650 mg FEED TUBE Q6HP PRN 09/03/17 09/08/17 Bisoprolol Fumarate [Zebeta 5mg 5 mg FEED TUBE BID 09/03/17 09/08/17 tablet] Docusate Sodium [Colace] 100 mg FEED TUBE BID 09/03/17 09/08/17 Enoxaparin Sodium [Lovenox 40 mg SQ DAILY 09/03/17 09/08/17 40mg/0.4mL syringe] Folic Acid/Vit B Complex and C 0.8 mg FEED TUBE DAILY 09/03/17 09/08/17 [Syeda-Byron Tablet] L. Acidophilus/L.bulgaricus 1 each FEED TUBE DAILY 09/03/17 09/08/17 [Floranex Tablet] Polyethylene Glycol 3350 [Miralax 17 gm FEED TUBE HS 09/03/17 09/08/17 17gm Packet] Valproic Acid (As Sodium Salt) 250 mg FEED TUBE TID 09/03/17 09/08/17 [Valproic Acid] levETIRAcetam [Levetiracetam] 1,000 mg G-TUBE BID 09/03/17 09/08/17 Ertapenem Sodium [Invanz 1gm Vial] 1 gm IV Q24H 09/08/17 09/08/17 Tobramycin Sulfate [Tobramycin 360 mg IV Q48H 09/08/17 09/08/17 80mg/2mL Vial] Allergies Allergy/AdvReac Type Severity Reaction Status Date / Time haloperidol [From Haldol] Allergy Verified 08/15/17 13:08 [facility] History I have reviewed the patient's past medical history: Yes Medical History: Reports:: Diabetes Mellitus Type 2, MRSA (SPUTUM), Seizures, Urinary Tract Infection Denies:: Chronic Obstructive Pulmonary Disease (COPD) Other Medical History: Reports: Anemia Comment: Traumatic brain injury Other Surgeries: Yes: Colostomy Comment: wound debridment - Social History Educational Level: Completed High School Smoking Status: Never smoker Alcohol Intake: never Occupational Status: disabled Housing: alf Household Members: other - Psychiatric History Expresses thoughts of harming self/others: None Suicide Plan Description: No Plan Family Hx:: Diabetes, Heart Attack ROS Obtained: Yes unobtainable due to mental condition Physical Exam - General General appearance: alert, in no apparent distress Comment: Respirations are easy. Debilitated. Tracheostomy with oxygen by mask via tracheostomy. Gastrostomy tube. Jay catheter. PICC line. - Head Head exam: atraumatic, normocephalic, normal inspection - Eye Eye exam: Present: normal appearance, PERRL, EOMI - ENT ENT exam: Present: normal exam, normal oropharynx, mucous membranes moist - Neck Neck exam: Present: normal inspection, full ROM, trachea midline - Chest Chest inspection: Present: normal inspection, symmetric chest wall rise. Absent : tenderness - Respiratory Respiratory exam: Present: normal lung sounds bilaterally. Absent: respiratory distress - Cardiovascular Cardiovascular exam: Present: regular rate, normal rhythm. Absent: JVD - Abdominal Exam Abdominal exam: Present: soft, normal bowel sounds. Absent: distention, tenderness, guarding - Extremities Exam Extremities exam: Present: normal inspection, full ROM, normal capillary refill. Absent: calf tenderness - Neurological Exam Neurological exam: Present: alert - Skin Skin exam: Present: warm, dry, intact, normal color
--- NOTE | 2017-09-08 17:37 | History & Physical Report ---
*Admission Date: 09/08/17 *Chief complaint: Low oxygen saturation *History of present illness: 42-year-old white male, [facility] resident of local [facility] with significant history of traumatic brain injury and recent worsening pulmonary status with worsening recurrent pneumonitis, worsening recurrent pneumonias and recurrent sepsis episodes who was just transferred back to the nursing facility 2 days ago but brought back to the emergency department because of low saturations and low blood pressure. In the emergency department suctioning did help his oxygen status but continued to have low blood pressure, high lactic acid, new infiltrate on chest x-ray and is admitted to hospital for antibiotic therapy and further care determination. Patient is unable to give a history. [facility] History Medical History: Reports:: Diabetes Mellitus Type 2, MRSA (SPUTUM), Seizures, Urinary Tract Infection Denies:: Chronic Obstructive Pulmonary Disease (COPD) Other Medical History: Reports: Anemia Other Surgeries: Yes: Colostomy - *Social History Educational Level: Completed High School Smoking Status: Never smoker Alcohol Intake: never Occupational Status: disabled Housing: [facility] Household Members: other - Psychiatric History Expresses thoughts of harming self/others: None Suicide Plan Description: No Plan *Family Hx:: Diabetes, Heart Attack Review of Systems - Review of Systems Review of systems:: unable to obtain Meds Home Medications Medication Instructions Recorded Confirmed Type ALPRAZolam [Xanax 1mg tab] 1 mg G-TUBE TID 06/15/17 09/08/17 History Baclofen 20 mg G-TUBE TID 06/15/17 09/08/17 History Famotidine [Pepcid 20mg Tablet] 20 mg G-TUBE BID 06/15/17 09/08/17 History Sennosides [Senna] 8.6 mg G-TUBE BID 06/15/17 09/08/17 History Thiamine HCl 100 mg G-TUBE BID 06/15/17 09/08/17 History risperiDONE [Risperdal 0.5mg 0.5 mg G-TUBE BID 06/15/17 09/08/17 History tablet] Insulin Glargine,Hum.rec.anlog 10 unit SQ HS 08/16/17 09/08/17 History [Insulin Glargine 100 Units/mL 3mL flexpen] Insulin Regular, Human [Humulin R 0 units SQ DIRECTED 08/16/17 09/08/17 History Insulin 100 Units/mL 10mL Vial] Bisoprolol Fumarate [Zebeta 5mg 5 mg FEED TUBE BID 09/03/17 09/08/17 History tablet] Docusate Sodium [Colace] 100 mg FEED TUBE BID 09/03/17 09/08/17 History Enoxaparin Sodium [Lovenox 40 mg SQ DAILY 09/03/17 09/08/17 History 40mg/0.4mL syringe] Folic Acid/Vit B Complex and C 0.8 mg FEED TUBE DAILY 09/03/17 09/08/17 History [Syeda-Byron Tablet] L. Acidophilus/L.bulgaricus 1 each FEED TUBE TID 09/03/17 09/08/17 History [Floranex Tablet] Polyethylene Glycol 3350 [Miralax 17 gm FEED TUBE HS 09/03/17 09/08/17 History 17gm Packet] Valproic Acid (As Sodium Salt) 250 mg FEED TUBE TID 09/03/17 09/08/17 History [Valproic Acid] levETIRAcetam [Levetiracetam] 1,000 mg G-TUBE BID 09/03/17 09/08/17 History Cefepime HCl [Maxipime 2gm Vial] 2 gm IV Q12H 09/08/17 09/08/17 History Tobramycin Sulfate [Tobramycin 100 mg IV Q12H 09/08/17 09/08/17 History 80mg/2mL Vial] Allergies Allergy/AdvReac Type Severity Reaction Status Date / Time haloperidol [From Haldol] Allergy Verified 08/15/17 13:08 Exam Vital signs and Labs for Last 24 Hours: Temp Pulse Resp BP Pulse Ox 98.8 F 98 H 18 121/71 95 09/08/17 15:52 09/08/17 15:52 09/08/17 15:52 09/08/17 15:52 09/08/17 15:31 Laboratory Results - last 24 hr 09/08/17 10:42: WBC 18.0 H D, RBC 3.94 L D, Hgb 11.1 L, Hct 36.0 L, MCV 91.3, MCH 28.2, MCHC 30.9 L, RDW 15.8, Plt Count 428 H D, MPV 10.2, Neut % (Auto) 82.3 H, Lymph % (Auto) 9.8 L, Rooks % (Auto) 6.3, Eos % (Auto) 0.9, Baso % (Auto ) 0.8, Neut # (Auto) 14.8 H, Lymph # (Auto) 1.8, Rooks # (Auto) 1.1 H, Eos # ( Auto) 0.2, Baso # (Auto) 0.1, Total Counted 100, Neutrophils % (Manual) 88 H, Band Neutrophils % 2.0, Lymphocytes % (Manual) 6 L, Monocytes % (Manual) 4, Platelet Estimate Slight increase, RBC Morphology Not Reportable 09/08/17 10:42: Sodium 146 H, Potassium 4.4, Chloride 109 H, Carbon Dioxide 27, Anion Gap 14.4, BUN 42 H, Creatinine 0.95, Estimated Creat Clear 68, Estimated GFR 86, Est GFR ( Amer) 104, Glucose 239 H, Calcium 9.4, Total Bilirubin 0.1 L, AST 18, ALT 13, Alkaline Phosphatase 88, Total Protein 7.7, Albumin 2.0 L , Globulin 5.7 H, Albumin/Globulin Ratio 0.4 L 09/08/17 10:42: Lactic Acid 2.1 H 09/08/17 14:49: Lactic Acid Fup @ 4Hr 1.4 09/08/17 : B-Natriuretic Peptide 207 H I & O for Last 24 hours: Intake & Output 09/06/17 09/07/17 09/08/17 09/09/17 11:59 11:59 11:59 11:59 Weight 107 lb 145 lb 0.991 oz Microbiology Reports for the Last 24 Hours: Microbiology 09/08/17 Unknown Sputum - Expectorated Sputum Gram Stain - Final Narrative: Patient has tracheostomy in place with yellow drainage. Ostomy in place and seems to be functioning. G-tube seems to be functioning fairly well. Lungs have rhonchi throughout, poor air movement. Perfusion is diminished over his baseline. Poor blood pressures noted. Heart rate regular. Neurologic exam remains unchanged from his baseline with significant abnormalities, no visible response to tactile or verbal stimuli H&P: Result - Labs Labs: Short CBC 09/08/17 Range/Units 10:42 WBC 18.0 H D (4.8-10.8) K/mm3 Hgb 11.1 L (14.1-18.0) g/dL Hct 36.0 L (42.0-52.0) % Plt Count 428 H D (142-424) K/mm3 BMP 09/08/17 10:42 Sodium 146 H Potassium 4.4 Chloride 109 H Carbon Dioxide 27 BUN 42 H Creatinine 0.95 Glucose 239 H Calcium 9.4 Liver Function 09/08/17 Range/Units 10:42 Total Bilirubin 0.1 L (0.2-1.0) mg/dL AST 18 (15-37) U/L ALT 13 (12-78) U/L Alkaline Phosphatase 88 (46-116) U/L Albumin 2.0 L (3.4-5.0) gm/dL Assessment and Plan (1) HCAP (healthcare-associated pneumonia) Current visit: Yes Status: Acute Category: Medical Code(s): J18.9 - Pneumonia, unspecified organism (2) Sepsis Current visit: Yes Status: Acute Qualifiers: Sepsis type: sepsis due to unspecified organism Qualified Code(s): A41.9 - Sepsis, unspecified organism Category: Medical Code(s): A41.9 - Sepsis, unspecified organism (3) Atelectasis of right lung Current visit: No Status: Acute Category: Medical Code(s): J98.11 - Atelectasis (4) Dehydration Current visit: No Status: Acute Category: Medical Code(s): E86.0 - Dehydration (5) Fever Current visit: No Status: Acute Category: Medical Code(s): R50.9 - Fever, unspecified (6) Hypernatremia Current visit: No Status: Acute Category: Medical Code(s): E87.0 - Hyperosmolality and hypernatremia (7) MRSA pneumonia Current visit: No Status: Acute Category: Medical Code(s): J15.212 - Pneumonia due to Methicillin resistant Staphylococcus aureus (8) New onset atrial fibrillation Current visit: No Status: Acute Category: Medical Code(s): I48.91 - Unspecified atrial fibrillation (9) Pneumonia Current visit: No Status: Acute Category: Medical Code(s): J18.9 - Pneumonia, unspecified organism (10) Pseudomonal pneumonia Current visit: No Status: Acute Category: Medical Code(s): J15.1 - Pneumonia due to Pseudomonas (11) Pseudomonas urinary tract infection Current visit: No Status: Acute Category: Medical Code(s): N39.0 - Urinary tract infection, site not specified; B96.5 - Pseudomonas (aeruginosa) ( mallei) (pseudomallei) as the cause of diseases classified elsewhere (12) RML pneumonia Current visit: No Status: Acute Category: Medical Code(s): J18.1 - Lobar pneumonia, unspecified organism (13) SOB (shortness of breath) Current visit: No Status: Acute Category: Medical Code(s): R06.02 - Shortness of breath (14) SVT (supraventricular tachycardia) Current visit: No Status: Acute Category: Medical Code(s): I47.1 - Supraventricular tachycardia (15) Traumatic brain injury Current visit: No Status: Acute Category: Medical Code(s): S06.9X9A - Unspecified intracranial injury with loss of consciousness of unspecified duration, initial encounter (16) CRF (chronic renal failure) Current visit: No Status: Chronic Category: Medical Code(s): N18.9 - Chronic kidney disease, unspecified (17) Colostomy care Current visit: No Status: Chronic Category: Medical Code(s): Z43.3 - Encounter for attention to colostomy (18) Deaf Current visit: No Status: Chronic Category: Medical Code(s): H91.90 - Unspecified hearing loss, unspecified ear (19) Decubitus ulcer Current visit: No Status: Chronic Category: Medical Code(s): L89.90 - Pressure ulcer of unspecified site, unspecified stage (20) Decubitus ulcer of sacral region, stage 4 Current visit: No Status: Chronic Category: Medical Code(s): L89.154 - Pressure ulcer of sacral region, stage 4 (21) Dysphagia Current visit: No Status: Chronic Category: Medical Code(s): R13.10 - Dysphagia, unspecified (22) Gastrostomy tube in place Current visit: No Status: Chronic Category: Medical Code(s): Z93.1 - Gastrostomy status (23) Mentally challenged Current visit: No Status: Chronic Category: Medical Code(s): F79 - Unspecified intellectual disabilities (24) Seizure disorder Current visit: No Status: Chronic Category: Medical Code(s): G40.909 - Epilepsy, unspecified, not intractable, without status epilepticus (25) Tracheostomy in place Current visit: No Status: Chronic Category: Medical Code(s): Z93.0 - Tracheostomy status (26) Type 2 diabetes mellitus Current visit: No Status: Chronic Category: Medical Code(s): E11.9 - Type 2 diabetes mellitus without complications (27) Dehydration with hypernatremia Current visit: No Status: Resolved Category: Medical Code(s): E87.0 - Hyperosmolality and hypernatremia (28) Hypoxemia Current visit: No Status: Resolved Category: Medical Code(s): R09.02 - Hypoxemia - Assessment and plan all Dx Assessment and Plan for all problems:: Plan will be to admit to hospital. He is already on cefepime and tobramycin from his previous episode of sepsis. We will continue this and add vancomycin for staphylococcal coverage. Other medications will be continued. Given his DNR status and terminal prognosis will focus on comfort care. I believe that the best disposition for him would be hospice care and we will begin the process of going through the appropriate channels given his state guardianship status.
--- NOTE | 2017-09-09 07:35 | Pharmacy Consult Notes ---
[facility] Pharmacy VTE Monitoring - Patient Demographics Admission date: 09/08/17 Report Date: 09/09/17 Time: 07:35 Allergies/Adverse Reactions: Patient Allergies haloperidol [From Haldol] Allergy (Verified 08/15/17 13:08) Height: 1.68 m Weight: 65.799 kg Patient Problems: Current Active Problems HCAP (healthcare-associated pneumonia) (Acute) Sepsis (Acute) - VTE Risk Labs: VTE Related Lab Results Hgb 11.1 g/dL (14.1-18.0) L 09/08/17 10:42 Hct 36.0 % (42.0-52.0) L 09/08/17 10:42 Plt Count 428 K/mm3 (142-424) H D 09/08/17 10:42 BUN 42 mg/dL (7-18) H 09/08/17 10:42 Creatinine 0.95 mg/dL (0.70-1.30) 09/08/17 10:42 Estimated Creat Clear 68 mL/min (0-300) 09/08/17 10:42 Was VTE Risk Assessment Performed: Yes VTE Score: 7 VTE Risk Level: Moderate Risk - Prophylaxis VTE Prophylaxis Ordered?: Yes Types of VTE Prophylaxis: Pharmacological Pharmacologic Type: Enoxaparin - VTE Diagnosis Confirmed Treatment or plan recommended: Continue Current Treatment
--- NOTE | 2017-09-09 08:13 | Progress Note ---
Internal Medicine - PN: Subj *Date: 09/09/17 *Time: 08:13 Interval history: Patient is more alert. Lungs have rhonchi throughout, poor air movement. Tracheostomy tube with scant yellow drainage. Heart rate regular. Neurologic exam remains unchanged from his baseline with significant abnormalities, no visible response to tactile or verbal stimuli H&P: Result Exam Vital signs and Labs for Last 24 Hours: Temp Pulse Resp BP Pulse Ox 99.4 F 85 18 115/64 94 L 09/09/17 08:00 09/09/17 08:00 09/09/17 08:00 09/09/17 08:00 09/09/17 08:00 Laboratory Results - last 24 hr 09/08/17 10:42: WBC 18.0 H D, RBC 3.94 L D, Hgb 11.1 L, Hct 36.0 L, MCV 91.3, MCH 28.2, MCHC 30.9 L, RDW 15.8, Plt Count 428 H D, MPV 10.2, Neut % (Auto) 82.3 H, Lymph % (Auto) 9.8 L, Divide % (Auto) 6.3, Eos % (Auto) 0.9, Baso % (Auto ) 0.8, Neut # (Auto) 14.8 H, Lymph # (Auto) 1.8, Divide # (Auto) 1.1 H, Eos # ( Auto) 0.2, Baso # (Auto) 0.1, Total Counted 100, Neutrophils % (Manual) 88 H, Band Neutrophils % 2.0, Lymphocytes % (Manual) 6 L, Monocytes % (Manual) 4, Platelet Estimate Slight increase, RBC Morphology Not Reportable 09/08/17 10:42: Sodium 146 H, Potassium 4.4, Chloride 109 H, Carbon Dioxide 27, Anion Gap 14.4, BUN 42 H, Creatinine 0.95, Estimated Creat Clear 68, Estimated GFR 86, Est GFR ( Amer) 104, Glucose 239 H, Calcium 9.4, Total Bilirubin 0.1 L, AST 18, ALT 13, Alkaline Phosphatase 88, Total Protein 7.7, Albumin 2.0 L , Globulin 5.7 H, Albumin/Globulin Ratio 0.4 L 09/08/17 10:42: Lactic Acid 2.1 H 09/08/17 14:49: Lactic Acid Fup @ 4Hr 1.4 09/08/17 20:52: POC Glucose 170 H 09/08/17 : B-Natriuretic Peptide 207 H 09/09/17 05:50: POC Glucose 142 H I & O for Last 24 hours: Intake & Output 09/06/17 09/07/17 09/08/17 09/09/17 11:59 11:59 11:59 11:59 Intake Total 2283 / 2283 Output Total 1700 / 1700 Balance 583 / 583 Weight 107 lb 145 lb 0.991 oz Microbiology Reports for the Last 24 Hours: Microbiology 09/08/17 Unknown Sputum - Expectorated Sputum Gram Stain - Final 09/08/17 Unknown Sputum - Expectorated Sputum Sputum Culture - Preliminary Gram Negative Rods Assessment and Plan (1) HCAP (healthcare-associated pneumonia) Current visit: Yes Status: Acute Category: Medical Code(s): J18.9 - Pneumonia, unspecified organism (2) Sepsis Current visit: Yes Status: Acute Qualifiers: Sepsis type: sepsis due to unspecified organism Qualified Code(s): A41.9 - Sepsis, unspecified organism Category: Medical Code(s): A41.9 - Sepsis, unspecified organism (3) Atelectasis of right lung Current visit: No Status: Acute Category: Medical Code(s): J98.11 - Atelectasis (4) Dehydration Current visit: No Status: Acute Category: Medical Code(s): E86.0 - Dehydration (5) Fever Current visit: No Status: Acute Category: Medical Code(s): R50.9 - Fever, unspecified (6) Hypernatremia Current visit: No Status: Acute Category: Medical Code(s): E87.0 - Hyperosmolality and hypernatremia (7) MRSA pneumonia Current visit: No Status: Acute Category: Medical Code(s): J15.212 - Pneumonia due to Methicillin resistant Staphylococcus aureus (8) New onset atrial fibrillation Current visit: No Status: Acute Category: Medical Code(s): I48.91 - Unspecified atrial fibrillation (9) Pneumonia Current visit: No Status: Acute Category: Medical Code(s): J18.9 - Pneumonia, unspecified organism (10) Pseudomonal pneumonia Current visit: No Status: Acute Category: Medical Code(s): J15.1 - Pneumonia due to Pseudomonas (11) Pseudomonas urinary tract infection Current visit: No Status: Acute Category: Medical Code(s): N39.0 - Urinary tract infection, site not specified; B96.5 - Pseudomonas (aeruginosa) ( mallei) (pseudomallei) as the cause of diseases classified elsewhere (12) RML pneumonia Current visit: No Status: Acute Category: Medical Code(s): J18.1 - Lobar pneumonia, unspecified organism (13) SOB (shortness of breath) Current visit: No Status: Acute Category: Medical Code(s): R06.02 - Shortness of breath (14) SVT (supraventricular tachycardia) Current visit: No Status: Acute Category: Medical Code(s): I47.1 - Supraventricular tachycardia (15) Traumatic brain injury Current visit: No Status: Acute Category: Medical Code(s): S06.9X9A - Unspecified intracranial injury with loss of consciousness of unspecified duration, initial encounter (16) CRF (chronic renal failure) Current visit: No Status: Chronic Category: Medical Code(s): N18.9 - Chronic kidney disease, unspecified (17) Colostomy care Current visit: No Status: Chronic Category: Medical Code(s): Z43.3 - Encounter for attention to colostomy (18) Deaf Current visit: No Status: Chronic Category: Medical Code(s): H91.90 - Unspecified hearing loss, unspecified ear (19) Decubitus ulcer Current visit: No Status: Chronic Category: Medical Code(s): L89.90 - Pressure ulcer of unspecified site, unspecified stage (20) Decubitus ulcer of sacral region, stage 4 Current visit: No Status: Chronic Category: Medical Code(s): L89.154 - Pressure ulcer of sacral region, stage 4 (21) Dysphagia Current visit: No Status: Chronic Category: Medical Code(s): R13.10 - Dysphagia, unspecified (22) Gastrostomy tube in place Current visit: No Status: Chronic Category: Medical Code(s): Z93.1 - Gastrostomy status (23) Mentally challenged Current visit: No Status: Chronic Category: Medical Code(s): F79 - Unspecified intellectual disabilities (24) Seizure disorder Current visit: No Status: Chronic Category: Medical Code(s): G40.909 - Epilepsy, unspecified, not intractable, without status epilepticus (25) Tracheostomy in place Current visit: No Status: Chronic Category: Medical Code(s): Z93.0 - Tracheostomy status (26) Type 2 diabetes mellitus Current visit: No Status: Chronic Category: Medical Code(s): E11.9 - Type 2 diabetes mellitus without complications (27) Dehydration with hypernatremia Current visit: No Status: Resolved Category: Medical Code(s): E87.0 - Hyperosmolality and hypernatremia (28) Hypoxemia Current visit: No Status: Resolved Category: Medical Code(s): R09.02 - Hypoxemia - Assessment and plan all Dx Assessment and Plan for all problems:: Continue IV antibiotics. Recommend palliative care. Dr. Sharp and Dr. Cordoba will submit letters to the state recommending Hospice Care.
--- NOTE | 2017-09-09 09:42 | Pharmacy Consult Notes ---
- Pharmacy Consult Date: 09/09/17 Time: 09:40 Referring provider: DR. OTERO Reason for Consult:: TOBRAMYCIN AND VANCOMYCIN DOSING Allergies and ADEs:: Allergies Allergy/AdvReac Type Severity Reaction Status Date / Time haloperidol [From Haldol] Allergy Verified 08/15/17 13:08 Home Medications:: Home Medications Medication Instructions Recorded Confirmed Type ALPRAZolam [Xanax 1mg tab] 1 mg G-TUBE TID 06/15/17 09/08/17 History Baclofen 20 mg G-TUBE TID 06/15/17 09/08/17 History Famotidine [Pepcid 20mg Tablet] 20 mg G-TUBE BID 06/15/17 09/08/17 History Sennosides [Senna] 8.6 mg G-TUBE BID 06/15/17 09/08/17 History Thiamine HCl 100 mg G-TUBE BID 06/15/17 09/08/17 History risperiDONE [Risperdal 0.5mg 0.5 mg G-TUBE BID 06/15/17 09/08/17 History tablet] Insulin Glargine,Hum.rec.anlog 10 unit SQ HS 08/16/17 09/08/17 History [Insulin Glargine 100 Units/mL 3mL flexpen] Insulin Regular, Human [Humulin R 0 units SQ DIRECTED 08/16/17 09/08/17 History Insulin 100 Units/mL 10mL Vial] Bisoprolol Fumarate [Zebeta 5mg 5 mg FEED TUBE BID 09/03/17 09/08/17 History tablet] Docusate Sodium [Colace] 100 mg FEED TUBE BID 09/03/17 09/08/17 History Enoxaparin Sodium [Lovenox 40 mg SQ DAILY 09/03/17 09/08/17 History 40mg/0.4mL syringe] Folic Acid/Vit B Complex and C 0.8 mg FEED TUBE DAILY 09/03/17 09/08/17 History [Syeda-Byron Tablet] L. Acidophilus/L.bulgaricus 1 each FEED TUBE TID 09/03/17 09/08/17 History [Floranex Tablet] Polyethylene Glycol 3350 [Miralax 17 gm FEED TUBE HS 09/03/17 09/08/17 History 17gm Packet] Valproic Acid (As Sodium Salt) 250 mg FEED TUBE TID 09/03/17 09/08/17 History [Valproic Acid] levETIRAcetam [Levetiracetam] 1,000 mg G-TUBE BID 09/03/17 09/08/17 History Cefepime HCl [Maxipime 2gm Vial] 2 gm IV Q12H 09/08/17 09/08/17 History Tobramycin Sulfate [Tobramycin 100 mg IV Q12H 09/08/17 09/08/17 History 80mg/2mL Vial] Height: 1.68 m Weight: 65.799 kg Laboratory Results:: Laboratory Results - last 24 hr 09/08/17 10:42: WBC 18.0 H D, RBC 3.94 L D, Hgb 11.1 L, Hct 36.0 L, MCV 91.3, MCH 28.2, MCHC 30.9 L, RDW 15.8, Plt Count 428 H D, MPV 10.2, Neut % (Auto) 82.3 H, Lymph % (Auto) 9.8 L, [place] % (Auto) 6.3, Eos % (Auto) 0.9, Baso % (Auto ) 0.8, Neut # (Auto) 14.8 H, Lymph # (Auto) 1.8, [place] # (Auto) 1.1 H, Eos # ( Auto) 0.2, Baso # (Auto) 0.1, Total Counted 100, Neutrophils % (Manual) 88 H, Band Neutrophils % 2.0, Lymphocytes % (Manual) 6 L, Monocytes % (Manual) 4, Platelet Estimate Slight increase, RBC Morphology Not Reportable 09/08/17 10:42: Sodium 146 H, Potassium 4.4, Chloride 109 H, Carbon Dioxide 27, Anion Gap 14.4, BUN 42 H, Creatinine 0.95, Estimated Creat Clear 68, Estimated GFR 86, Est GFR ( Amer) 104, Glucose 239 H, Calcium 9.4, Total Bilirubin 0.1 L, AST 18, ALT 13, Alkaline Phosphatase 88, Total Protein 7.7, Albumin 2.0 L , Globulin 5.7 H, Albumin/Globulin Ratio 0.4 L 09/08/17 10:42: Lactic Acid 2.1 H 09/08/17 14:49: Lactic Acid Fup @ 4Hr 1.4 09/08/17 20:52: POC Glucose 170 H 09/08/17 : B-Natriuretic Peptide 207 H 09/09/17 05:50: POC Glucose 142 H Medical History: Reports:: Diabetes Mellitus Type 2, MRSA (SPUTUM), Seizures, Urinary Tract Infection Denies:: Chronic Obstructive Pulmonary Disease (COPD) Assessment and Plan (1) HCAP (healthcare-associated pneumonia) Current visit: Yes Status: Acute Category: Medical Code(s): J18.9 - Pneumonia, unspecified organism (2) Sepsis Current visit: Yes Status: Acute Qualifiers: Sepsis type: sepsis due to unspecified organism Qualified Code(s): A41.9 - Sepsis, unspecified organism Category: Medical Code(s): A41.9 - Sepsis, unspecified organism (3) Atelectasis of right lung Current visit: No Status: Acute Category: Medical Code(s): J98.11 - Atelectasis (4) Dehydration Current visit: No Status: Acute Category: Medical Code(s): E86.0 - Dehydration (5) Fever Current visit: No Status: Acute Category: Medical Code(s): R50.9 - Fever, unspecified (6) Hypernatremia Current visit: No Status: Acute Category: Medical Code(s): E87.0 - Hyperosmolality and hypernatremia (7) MRSA pneumonia Current visit: No Status: Acute Category: Medical Code(s): J15.212 - Pneumonia due to Methicillin resistant Staphylococcus aureus (8) New onset atrial fibrillation Current visit: No Status: Acute Category: Medical Code(s): I48.91 - Unspecified atrial fibrillation (9) Pneumonia Current visit: No Status: Acute Category: Medical Code(s): J18.9 - Pneumonia, unspecified organism (10) Pseudomonal pneumonia Current visit: No Status: Acute Category: Medical Code(s): J15.1 - Pneumonia due to Pseudomonas (11) Pseudomonas urinary tract infection Current visit: No Status: Acute Category: Medical Code(s): N39.0 - Urinary tract infection, site not specified; B96.5 - Pseudomonas (aeruginosa) ( mallei) (pseudomallei) as the cause of diseases classified elsewhere (12) RML pneumonia Current visit: No Status: Acute Category: Medical Code(s): J18.1 - Lobar pneumonia, unspecified organism (13) SOB (shortness of breath) Current visit: No Status: Acute Category: Medical Code(s): R06.02 - Shortness of breath (14) SVT (supraventricular tachycardia) Current visit: No Status: Acute Category: Medical Code(s): I47.1 - Supraventricular tachycardia (15) Traumatic brain injury Current visit: No Status: Acute Category: Medical Code(s): S06.9X9A - Unspecified intracranial injury with loss of consciousness of unspecified duration, initial encounter (16) CRF (chronic renal failure) Current visit: No Status: Chronic Category: Medical Code(s): N18.9 - Chronic kidney disease, unspecified (17) Colostomy care Current visit: No Status: Chronic Category: Medical Code(s): Z43.3 - Encounter for attention to colostomy (18) Deaf Current visit: No Status: Chronic Category: Medical Code(s): H91.90 - Unspecified hearing loss, unspecified ear (19) Decubitus ulcer Current visit: No Status: Chronic Category: Medical Code(s): L89.90 - Pressure ulcer of unspecified site, unspecified stage (20) Decubitus ulcer of sacral region, stage 4 Current visit: No Status: Chronic Category: Medical Code(s): L89.154 - Pressure ulcer of sacral region, stage 4 (21) Dysphagia Current visit: No Status: Chronic Category: Medical Code(s): R13.10 - Dysphagia, unspecified (22) Gastrostomy tube in place Current visit: No Status: Chronic Category: Medical Code(s): Z93.1 - Gastrostomy status (23) Mentally challenged Current visit: No Status: Chronic Category: Medical Code(s): F79 - Unspecified intellectual disabilities (24) Seizure disorder Current visit: No Status: Chronic Category: Medical Code(s): G40.909 - Epilepsy, unspecified, not intractable, without status epilepticus (25) Tracheostomy in place Current visit: No Status: Chronic Category: Medical Code(s): Z93.0 - Tracheostomy status (26) Type 2 diabetes mellitus Current visit: No Status: Chronic Category: Medical Code(s): E11.9 - Type 2 diabetes mellitus without complications (27) Dehydration with hypernatremia Current visit: No Status: Resolved Category: Medical Code(s): E87.0 - Hyperosmolality and hypernatremia (28) Hypoxemia Current visit: No Status: Resolved Category: Medical Code(s): R09.02 - Hypoxemia - Assessment and plan all Dx Assessment and Plan for all problems:: BASED ON PATIENT'S FACTORS, RECOMMEND STARTING WITH TOBRAMYCIN 360 MG Q24H AND VANCOMYCIN 1250 MG Q12H AT THIS TIME. PHARMACY WILL FOLLOW DAILY AND ADJUST APPROPRIATE. BRUNA YOO, PHARMD
--- NOTE | 2017-09-10 08:18 | Progress Note ---
Internal Medicine - PN: Subj *Date: 09/10/17 *Time: 08:16 Interval history: No changes in patient's condition overnight except for some temperature elevations. New sputum culture results reviewed. Exam Vital signs and Labs for Last 24 Hours: Temp Pulse Resp BP Pulse Ox 100.4 F H 77 20 125/61 97 09/10/17 06:51 09/10/17 04:00 09/10/17 04:00 09/10/17 04:00 09/10/17 04:00 Laboratory Results - last 24 hr 09/08/17 18:45: POC Glucose 147 H 09/09/17 11:40: POC Glucose 173 H 09/09/17 16:38: Random Tobramycin 6.4 09/09/17 17:09: POC Glucose 145 H 09/09/17 21:18: POC Glucose 137 H 09/10/17 00:35: Random Tobramycin 1.9 09/10/17 05:34: POC Glucose 188 H I & O for Last 24 hours: Intake & Output 09/07/17 09/08/17 09/09/17 09/10/17 11:59 11:59 11:59 11:59 Intake Total 2283 / 2283 3386 / 3386 Output Total 1700 / 1700 2650 / 2650 Balance 583 / 583 736 / 736 Weight 107 lb 145 lb 0.991 oz Microbiology Reports for the Last 24 Hours: Microbiology 09/08/17 10:42 Blood Blood Culture - Preliminary NO GROWTH AFTER 24 HOURS 09/08/17 10:42 Blood Blood Culture - Preliminary NO GROWTH AFTER 24 HOURS 09/08/17 Unknown Sputum - Expectorated Sputum Gram Stain - Final 09/08/17 Unknown Sputum - Expectorated Sputum Sputum Culture - Preliminary Gram Negative Rods Narrative: Patient remains noncommunicative and nonverbal. Essentially no changes in exam except lungs have slightly better air entry. Tube feeding seem to be functioning well. Abdomen soft. Colostomy bag functioning well. No changes in his significantly abnormal neurologic exam. Assessment and Plan (1) HCAP (healthcare-associated pneumonia) Current visit: Yes Status: Acute Category: Medical Code(s): J18.9 - Pneumonia, unspecified organism (2) Sepsis Current visit: Yes Status: Acute Qualifiers: Sepsis type: sepsis due to unspecified organism Qualified Code(s): A41.9 - Sepsis, unspecified organism Category: Medical Code(s): A41.9 - Sepsis, unspecified organism (3) Atelectasis of right lung Current visit: No Status: Acute Category: Medical Code(s): J98.11 - Atelectasis (4) Dehydration Current visit: No Status: Acute Category: Medical Code(s): E86.0 - Dehydration (5) Fever Current visit: No Status: Acute Category: Medical Code(s): R50.9 - Fever, unspecified (6) Hypernatremia Current visit: No Status: Acute Category: Medical Code(s): E87.0 - Hyperosmolality and hypernatremia (7) MRSA pneumonia Current visit: No Status: Acute Category: Medical Code(s): J15.212 - Pneumonia due to Methicillin resistant Staphylococcus aureus (8) New onset atrial fibrillation Current visit: No Status: Acute Category: Medical Code(s): I48.91 - Unspecified atrial fibrillation (9) Pneumonia Current visit: No Status: Acute Category: Medical Code(s): J18.9 - Pneumonia, unspecified organism (10) Pseudomonal pneumonia Current visit: No Status: Acute Category: Medical Code(s): J15.1 - Pneumonia due to Pseudomonas (11) Pseudomonas urinary tract infection Current visit: No Status: Acute Category: Medical Code(s): N39.0 - Urinary tract infection, site not specified; B96.5 - Pseudomonas (aeruginosa) ( mallei) (pseudomallei) as the cause of diseases classified elsewhere (12) RML pneumonia Current visit: No Status: Acute Category: Medical Code(s): J18.1 - Lobar pneumonia, unspecified organism (13) SOB (shortness of breath) Current visit: No Status: Acute Category: Medical Code(s): R06.02 - Shortness of breath (14) SVT (supraventricular tachycardia) Current visit: No Status: Acute Category: Medical Code(s): I47.1 - Supraventricular tachycardia (15) Traumatic brain injury Current visit: No Status: Acute Category: Medical Code(s): S06.9X9A - Unspecified intracranial injury with loss of consciousness of unspecified duration, initial encounter (16) CRF (chronic renal failure) Current visit: No Status: Chronic Category: Medical Code(s): N18.9 - Chronic kidney disease, unspecified (17) Colostomy care Current visit: No Status: Chronic Category: Medical Code(s): Z43.3 - Encounter for attention to colostomy (18) Deaf Current visit: No Status: Chronic Category: Medical Code(s): H91.90 - Unspecified hearing loss, unspecified ear (19) Decubitus ulcer Current visit: No Status: Chronic Category: Medical Code(s): L89.90 - Pressure ulcer of unspecified site, unspecified stage (20) Decubitus ulcer of sacral region, stage 4 Current visit: No Status: Chronic Category: Medical Code(s): L89.154 - Pressure ulcer of sacral region, stage 4 (21) Dysphagia Current visit: No Status: Chronic Category: Medical Code(s): R13.10 - Dysphagia, unspecified (22) Gastrostomy tube in place Current visit: No Status: Chronic Category: Medical Code(s): Z93.1 - Gastrostomy status (23) Seizure disorder Current visit: No Status: Chronic Category: Medical Code(s): G40.909 - Epilepsy, unspecified, not intractable, without status epilepticus (24) Tracheostomy in place Current visit: No Status: Chronic Category: Medical Code(s): Z93.0 - Tracheostomy status (25) Type 2 diabetes mellitus Current visit: No Status: Chronic Category: Medical Code(s): E11.9 - Type 2 diabetes mellitus without complications (26) Hypoxemia Current visit: No Status: Resolved Category: Medical Code(s): R09.02 - Hypoxemia - Assessment and plan all Dx Assessment and Plan for all problems:: Continue current plan. Gram-negative rods in sputum. Adjust therapy as indicated. Continue to plan for hospice care given his disease progression in the face of aggressive antibiotic and pulmonary care.
--- NOTE | 2017-09-10 09:26 | Pharmacy Consult Notes ---
- Pharmacy Consult Date: 09/10/17 Time: 09:23 Referring provider: DR. OTERO Reason for Consult:: TOBRAMYCIN DOSING Allergies and ADEs:: Allergies Allergy/AdvReac Type Severity Reaction Status Date / Time haloperidol [From Haldol] Allergy Verified 08/15/17 13:08 Home Medications:: Home Medications Medication Instructions Recorded Confirmed Type ALPRAZolam [Xanax 1mg tab] 1 mg G-TUBE TID 06/15/17 09/08/17 History Baclofen 20 mg G-TUBE TID 06/15/17 09/08/17 History Famotidine [Pepcid 20mg Tablet] 20 mg G-TUBE BID 06/15/17 09/08/17 History Sennosides [Senna] 8.6 mg G-TUBE BID 06/15/17 09/08/17 History Thiamine HCl 100 mg G-TUBE BID 06/15/17 09/08/17 History risperiDONE [Risperdal 0.5mg 0.5 mg G-TUBE BID 06/15/17 09/08/17 History tablet] Insulin Glargine,Hum.rec.anlog 10 unit SQ HS 08/16/17 09/08/17 History [Insulin Glargine 100 Units/mL 3mL flexpen] Insulin Regular, Human [Humulin R 0 units SQ DIRECTED 08/16/17 09/08/17 History Insulin 100 Units/mL 10mL Vial] Bisoprolol Fumarate [Zebeta 5mg 5 mg FEED TUBE BID 09/03/17 09/08/17 History tablet] Docusate Sodium [Colace] 100 mg FEED TUBE BID 09/03/17 09/08/17 History Enoxaparin Sodium [Lovenox 40 mg SQ DAILY 09/03/17 09/08/17 History 40mg/0.4mL syringe] Folic Acid/Vit B Complex and C 0.8 mg FEED TUBE DAILY 09/03/17 09/08/17 History [Syeda-Byron Tablet] L. Acidophilus/L.bulgaricus 1 each FEED TUBE TID 09/03/17 09/08/17 History [Floranex Tablet] Polyethylene Glycol 3350 [Miralax 17 gm FEED TUBE HS 09/03/17 09/08/17 History 17gm Packet] Valproic Acid (As Sodium Salt) 250 mg FEED TUBE TID 09/03/17 09/08/17 History [Valproic Acid] levETIRAcetam [Levetiracetam] 1,000 mg G-TUBE BID 09/03/17 09/08/17 History Cefepime HCl [Maxipime 2gm Vial] 2 gm IV Q12H 09/08/17 09/08/17 History Tobramycin Sulfate [Tobramycin 100 mg IV Q12H 09/08/17 09/08/17 History 80mg/2mL Vial] Height: 1.68 m Weight: 65.799 kg Laboratory Results:: Laboratory Results - last 24 hr 09/08/17 18:45: POC Glucose 147 H 09/09/17 11:40: POC Glucose 173 H 09/09/17 16:38: Random Tobramycin 6.4 09/09/17 17:09: POC Glucose 145 H 09/09/17 21:18: POC Glucose 137 H 09/10/17 00:35: Random Tobramycin 1.9 09/10/17 05:34: POC Glucose 188 H Medical History: Reports:: Diabetes Mellitus Type 2, MRSA (SPUTUM), Seizures, Urinary Tract Infection Denies:: Chronic Obstructive Pulmonary Disease (COPD) Assessment and Plan (1) HCAP (healthcare-associated pneumonia) Current visit: Yes Status: Acute Category: Medical Code(s): J18.9 - Pneumonia, unspecified organism (2) Sepsis Current visit: Yes Status: Acute Qualifiers: Sepsis type: sepsis due to unspecified organism Qualified Code(s): A41.9 - Sepsis, unspecified organism Category: Medical Code(s): A41.9 - Sepsis, unspecified organism (3) Atelectasis of right lung Current visit: No Status: Acute Category: Medical Code(s): J98.11 - Atelectasis (4) Dehydration Current visit: No Status: Acute Category: Medical Code(s): E86.0 - Dehydration (5) Fever Current visit: No Status: Acute Category: Medical Code(s): R50.9 - Fever, unspecified (6) Hypernatremia Current visit: No Status: Acute Category: Medical Code(s): E87.0 - Hyperosmolality and hypernatremia (7) MRSA pneumonia Current visit: No Status: Acute Category: Medical Code(s): J15.212 - Pneumonia due to Methicillin resistant Staphylococcus aureus (8) New onset atrial fibrillation Current visit: No Status: Acute Category: Medical Code(s): I48.91 - Unspecified atrial fibrillation (9) Pneumonia Current visit: No Status: Acute Category: Medical Code(s): J18.9 - Pneumonia, unspecified organism (10) Pseudomonal pneumonia Current visit: No Status: Acute Category: Medical Code(s): J15.1 - Pneumonia due to Pseudomonas (11) Pseudomonas urinary tract infection Current visit: No Status: Acute Category: Medical Code(s): N39.0 - Urinary tract infection, site not specified; B96.5 - Pseudomonas (aeruginosa) ( mallei) (pseudomallei) as the cause of diseases classified elsewhere (12) RML pneumonia Current visit: No Status: Acute Category: Medical Code(s): J18.1 - Lobar pneumonia, unspecified organism (13) SOB (shortness of breath) Current visit: No Status: Acute Category: Medical Code(s): R06.02 - Shortness of breath (14) SVT (supraventricular tachycardia) Current visit: No Status: Acute Category: Medical Code(s): I47.1 - Supraventricular tachycardia (15) Traumatic brain injury Current visit: No Status: Acute Category: Medical Code(s): S06.9X9A - Unspecified intracranial injury with loss of consciousness of unspecified duration, initial encounter (16) CRF (chronic renal failure) Current visit: No Status: Chronic Category: Medical Code(s): N18.9 - Chronic kidney disease, unspecified (17) Colostomy care Current visit: No Status: Chronic Category: Medical Code(s): Z43.3 - Encounter for attention to colostomy (18) Deaf Current visit: No Status: Chronic Category: Medical Code(s): H91.90 - Unspecified hearing loss, unspecified ear (19) Decubitus ulcer Current visit: No Status: Chronic Category: Medical Code(s): L89.90 - Pressure ulcer of unspecified site, unspecified stage (20) Decubitus ulcer of sacral region, stage 4 Current visit: No Status: Chronic Category: Medical Code(s): L89.154 - Pressure ulcer of sacral region, stage 4 (21) Dysphagia Current visit: No Status: Chronic Category: Medical Code(s): R13.10 - Dysphagia, unspecified (22) Gastrostomy tube in place Current visit: No Status: Chronic Category: Medical Code(s): Z93.1 - Gastrostomy status (23) Seizure disorder Current visit: No Status: Chronic Category: Medical Code(s): G40.909 - Epilepsy, unspecified, not intractable, without status epilepticus (24) Tracheostomy in place Current visit: No Status: Chronic Category: Medical Code(s): Z93.0 - Tracheostomy status (25) Type 2 diabetes mellitus Current visit: No Status: Chronic Category: Medical Code(s): E11.9 - Type 2 diabetes mellitus without complications (26) Hypoxemia Current visit: No Status: Resolved Category: Medical Code(s): R09.02 - Hypoxemia - Assessment and plan all Dx Assessment and Plan for all problems:: BASED ON PATIENT FACTORS, RECOMMEND CONTINUING TOBRAMYCIN 360MG IV EVERY 24 HOURS. PHARMACY WILL CONTINUE TO MONITOR AND WILL ADJUST DOSE APPROPRIATE. -JUAN JOYA, KATHYD
--- NOTE | 2017-09-11 08:51 | Progress Note ---
Internal Medicine - PN: Subj *Date: 09/11/17 *Time: 08:49 Interval history: Last night we received facsimile from court system indicating that the responsible skimmer reverberatory had agreed with hospice consultation and possible withdrawal of care. Hospice consultation is pending. The patient has had no significant change overnight. Exam Vital signs and Labs for Last 24 Hours: Temp Pulse Resp BP Pulse Ox 97.6 F 89 26 H 150/72 96 09/11/17 07:38 09/11/17 07:38 09/11/17 07:38 09/11/17 04:00 09/11/17 07:38 Laboratory Results - last 24 hr 09/10/17 11:56: POC Glucose 151 H 09/10/17 16:42: POC Glucose 146 H 09/10/17 19:56: POC Glucose 158 H 09/10/17 21:50: Vancomycin Trough 19.5 I & O for Last 24 hours: Intake & Output 09/08/17 09/09/17 09/10/17 09/11/17 11:59 11:59 11:59 11:59 Intake Total 2283 / 2283 3386 / 3386 4781 / 4781 Output Total 1700 / 1700 3350 / 3350 1700 / 1700 Balance 583 / 583 36 / 36 3081 / 3081 Weight 107 lb 145 lb 0.991 oz 145 lb 0.991 oz 152 lb 2 oz Microbiology Reports for the Last 24 Hours: Microbiology 09/08/17 Unknown Sputum - Expectorated Sputum Gram Stain - Final 09/08/17 Unknown Sputum - Expectorated Sputum Sputum Culture - Final Pseudomonas aeruginosa 09/08/17 10:42 Blood Blood Culture - Preliminary NO GROWTH AFTER 48 HOURS 09/08/17 10:42 Blood Blood Culture - Preliminary NO GROWTH AFTER 48 HOURS Narrative: His morning the patient is more alert than he has been. Continues to have no effective means of communication. No response with blinking or gaze directional changes with questions. Pulmonary status remains extremely compromised on high flow oxygen by trach collar. Poor air movement. Lots of rhonchi and crackles throughout his lung barron. Colostomy bag functioning, abdomen soft, G-tube seems to be infusing well. No change in peripheral extremity status or neurologic status. Assessment and Plan (1) HCAP (healthcare-associated pneumonia) Current visit: Yes Status: Acute Category: Medical Code(s): J18.9 - Pneumonia, unspecified organism (2) Sepsis Current visit: Yes Status: Acute Qualifiers: Sepsis type: sepsis due to unspecified organism Qualified Code(s): A41.9 - Sepsis, unspecified organism Category: Medical Code(s): A41.9 - Sepsis, unspecified organism (3) Atelectasis of right lung Current visit: No Status: Acute Category: Medical Code(s): J98.11 - Atelectasis (4) Dehydration Current visit: No Status: Acute Category: Medical Code(s): E86.0 - Dehydration (5) Fever Current visit: No Status: Acute Category: Medical Code(s): R50.9 - Fever, unspecified (6) Hypernatremia Current visit: No Status: Acute Category: Medical Code(s): E87.0 - Hyperosmolality and hypernatremia (7) MRSA pneumonia Current visit: No Status: Acute Category: Medical Code(s): J15.212 - Pneumonia due to Methicillin resistant Staphylococcus aureus (8) New onset atrial fibrillation Current visit: No Status: Acute Category: Medical Code(s): I48.91 - Unspecified atrial fibrillation (9) Pneumonia Current visit: No Status: Acute Category: Medical Code(s): J18.9 - Pneumonia, unspecified organism (10) Pseudomonal pneumonia Current visit: No Status: Acute Category: Medical Code(s): J15.1 - Pneumonia due to Pseudomonas (11) Pseudomonas urinary tract infection Current visit: No Status: Acute Category: Medical Code(s): N39.0 - Urinary tract infection, site not specified; B96.5 - Pseudomonas (aeruginosa) ( mallei) (pseudomallei) as the cause of diseases classified elsewhere (12) RML pneumonia Current visit: No Status: Acute Category: Medical Code(s): J18.1 - Lobar pneumonia, unspecified organism (13) SOB (shortness of breath) Current visit: No Status: Acute Category: Medical Code(s): R06.02 - Shortness of breath (14) SVT (supraventricular tachycardia) Current visit: No Status: Acute Category: Medical Code(s): I47.1 - Supraventricular tachycardia (15) Traumatic brain injury Current visit: No Status: Acute Category: Medical Code(s): S06.9X9A - Unspecified intracranial injury with loss of consciousness of unspecified duration, initial encounter (16) CRF (chronic renal failure) Current visit: No Status: Chronic Category: Medical Code(s): N18.9 - Chronic kidney disease, unspecified (17) Colostomy care Current visit: No Status: Chronic Category: Medical Code(s): Z43.3 - Encounter for attention to colostomy (18) Deaf Current visit: No Status: Chronic Category: Medical Code(s): H91.90 - Unspecified hearing loss, unspecified ear (19) Decubitus ulcer Current visit: No Status: Chronic Category: Medical Code(s): L89.90 - Pressure ulcer of unspecified site, unspecified stage (20) Decubitus ulcer of sacral region, stage 4 Current visit: No Status: Chronic Category: Medical Code(s): L89.154 - Pressure ulcer of sacral region, stage 4 (21) Dysphagia Current visit: No Status: Chronic Category: Medical Code(s): R13.10 - Dysphagia, unspecified (22) Gastrostomy tube in place Current visit: No Status: Chronic Category: Medical Code(s): Z93.1 - Gastrostomy status (23) Seizure disorder Current visit: No Status: Chronic Category: Medical Code(s): G40.909 - Epilepsy, unspecified, not intractable, without status epilepticus (24) Tracheostomy in place Current visit: No Status: Chronic Category: Medical Code(s): Z93.0 - Tracheostomy status (25) Type 2 diabetes mellitus Current visit: No Status: Chronic Category: Medical Code(s): E11.9 - Type 2 diabetes mellitus without complications (26) Hypoxemia Current visit: No Status: Resolved Category: Medical Code(s): R09.02 - Hypoxemia - Assessment and plan all Dx Assessment and Plan for all problems:: Patient has improved for the short-term on antibiotics. Given the significant ramifications of withdrawing care, I would personally feel much more comfortable from an ethical perspective if hospice consultation and physicians were also on board with the final decision to withdraw care from a medical perspective. As result, will make no changes in management over the weekend, he will continue tube feedings and IV antibiotics. Once we have an official hospice consultation we may make moved to hospice care center versus long-term care based on discussions at that time.
--- NOTE | 2017-09-11 09:37 | Pharmacy Consult Notes ---
- Pharmacy Consult Date: 09/11/17 Time: 09:35 Referring provider: DR. OTERO Reason for Consult:: VANCOMYCIN DOSING Allergies and ADEs:: Allergies Allergy/AdvReac Type Severity Reaction Status Date / Time haloperidol [From Haldol] Allergy Verified 08/15/17 13:08 Home Medications:: Home Medications Medication Instructions Recorded Confirmed Type ALPRAZolam [Xanax 1mg tab] 1 mg G-TUBE TID 06/15/17 09/08/17 History Baclofen 20 mg G-TUBE TID 06/15/17 09/08/17 History Famotidine [Pepcid 20mg Tablet] 20 mg G-TUBE BID 06/15/17 09/08/17 History Sennosides [Senna] 8.6 mg G-TUBE BID 06/15/17 09/08/17 History Thiamine HCl 100 mg G-TUBE BID 06/15/17 09/08/17 History risperiDONE [Risperdal 0.5mg 0.5 mg G-TUBE BID 06/15/17 09/08/17 History tablet] Insulin Glargine,Hum.rec.anlog 10 unit SQ HS 08/16/17 09/08/17 History [Insulin Glargine 100 Units/mL 3mL flexpen] Insulin Regular, Human [Humulin R 0 units SQ DIRECTED 08/16/17 09/08/17 History Insulin 100 Units/mL 10mL Vial] Bisoprolol Fumarate [Zebeta 5mg 5 mg FEED TUBE BID 09/03/17 09/08/17 History tablet] Docusate Sodium [Colace] 100 mg FEED TUBE BID 09/03/17 09/08/17 History Enoxaparin Sodium [Lovenox 40 mg SQ DAILY 09/03/17 09/08/17 History 40mg/0.4mL syringe] Folic Acid/Vit B Complex and C 0.8 mg FEED TUBE DAILY 09/03/17 09/08/17 History [Syeda-Byron Tablet] L. Acidophilus/L.bulgaricus 1 each FEED TUBE TID 09/03/17 09/08/17 History [Floranex Tablet] Polyethylene Glycol 3350 [Miralax 17 gm FEED TUBE HS 09/03/17 09/08/17 History 17gm Packet] Valproic Acid (As Sodium Salt) 250 mg FEED TUBE TID 09/03/17 09/08/17 History [Valproic Acid] levETIRAcetam [Levetiracetam] 1,000 mg G-TUBE BID 09/03/17 09/08/17 History Cefepime HCl [Maxipime 2gm Vial] 2 gm IV Q12H 09/08/17 09/08/17 History Tobramycin Sulfate [Tobramycin 100 mg IV Q12H 09/08/17 09/08/17 History 80mg/2mL Vial] Height: 1.68 m Weight: 69.003 kg Laboratory Results:: Laboratory Results - last 24 hr 09/10/17 11:56: POC Glucose 151 H 09/10/17 16:42: POC Glucose 146 H 09/10/17 19:56: POC Glucose 158 H 09/10/17 21:50: Vancomycin Trough 19.5 Medical History: Reports:: Diabetes Mellitus Type 2, MRSA (SPUTUM), Seizures, Urinary Tract Infection Denies:: Chronic Obstructive Pulmonary Disease (COPD) Assessment and Plan (1) HCAP (healthcare-associated pneumonia) Current visit: Yes Status: Acute Category: Medical Code(s): J18.9 - Pneumonia, unspecified organism (2) Sepsis Current visit: Yes Status: Acute Qualifiers: Sepsis type: sepsis due to unspecified organism Qualified Code(s): A41.9 - Sepsis, unspecified organism Category: Medical Code(s): A41.9 - Sepsis, unspecified organism (3) Atelectasis of right lung Current visit: No Status: Acute Category: Medical Code(s): J98.11 - Atelectasis (4) Dehydration Current visit: No Status: Acute Category: Medical Code(s): E86.0 - Dehydration (5) Fever Current visit: No Status: Acute Category: Medical Code(s): R50.9 - Fever, unspecified (6) Hypernatremia Current visit: No Status: Acute Category: Medical Code(s): E87.0 - Hyperosmolality and hypernatremia (7) MRSA pneumonia Current visit: No Status: Acute Category: Medical Code(s): J15.212 - Pneumonia due to Methicillin resistant Staphylococcus aureus (8) New onset atrial fibrillation Current visit: No Status: Acute Category: Medical Code(s): I48.91 - Unspecified atrial fibrillation (9) Pneumonia Current visit: No Status: Acute Category: Medical Code(s): J18.9 - Pneumonia, unspecified organism (10) Pseudomonal pneumonia Current visit: No Status: Acute Category: Medical Code(s): J15.1 - Pneumonia due to Pseudomonas (11) Pseudomonas urinary tract infection Current visit: No Status: Acute Category: Medical Code(s): N39.0 - Urinary tract infection, site not specified; B96.5 - Pseudomonas (aeruginosa) ( mallei) (pseudomallei) as the cause of diseases classified elsewhere (12) RML pneumonia Current visit: No Status: Acute Category: Medical Code(s): J18.1 - Lobar pneumonia, unspecified organism (13) SOB (shortness of breath) Current visit: No Status: Acute Category: Medical Code(s): R06.02 - Shortness of breath (14) SVT (supraventricular tachycardia) Current visit: No Status: Acute Category: Medical Code(s): I47.1 - Supraventricular tachycardia (15) Traumatic brain injury Current visit: No Status: Acute Category: Medical Code(s): S06.9X9A - Unspecified intracranial injury with loss of consciousness of unspecified duration, initial encounter (16) CRF (chronic renal failure) Current visit: No Status: Chronic Category: Medical Code(s): N18.9 - Chronic kidney disease, unspecified (17) Colostomy care Current visit: No Status: Chronic Category: Medical Code(s): Z43.3 - Encounter for attention to colostomy (18) Deaf Current visit: No Status: Chronic Category: Medical Code(s): H91.90 - Unspecified hearing loss, unspecified ear (19) Decubitus ulcer Current visit: No Status: Chronic Category: Medical Code(s): L89.90 - Pressure ulcer of unspecified site, unspecified stage (20) Decubitus ulcer of sacral region, stage 4 Current visit: No Status: Chronic Category: Medical Code(s): L89.154 - Pressure ulcer of sacral region, stage 4 (21) Dysphagia Current visit: No Status: Chronic Category: Medical Code(s): R13.10 - Dysphagia, unspecified (22) Gastrostomy tube in place Current visit: No Status: Chronic Category: Medical Code(s): Z93.1 - Gastrostomy status (23) Seizure disorder Current visit: No Status: Chronic Category: Medical Code(s): G40.909 - Epilepsy, unspecified, not intractable, without status epilepticus (24) Tracheostomy in place Current visit: No Status: Chronic Category: Medical Code(s): Z93.0 - Tracheostomy status (25) Type 2 diabetes mellitus Current visit: No Status: Chronic Category: Medical Code(s): E11.9 - Type 2 diabetes mellitus without complications (26) Hypoxemia Current visit: No Status: Resolved Category: Medical Code(s): R09.02 - Hypoxemia - Assessment and plan all Dx Assessment and Plan for all problems:: BASED ON LEVELS AND PATIENT FACTORS, RECOMMEND CONTINUING VANCOMYCIN AT CURRENT DOSE OF 1,250MG IV Q12H. PHARMACY WILL CONTINUE TO MONITOR AND ADJUST DOSE APPROPRIATE. -JUAN JOYA, KATHYD
--- NOTE | 2017-09-11 10:57 | Progress Note ---
Internal Medicine - PN: Subj *Date: 09/11/17 *Time: 10:57 Exam Vital signs and Labs for Last 24 Hours: Temp Pulse Resp BP Pulse Ox 97.6 F 89 26 H 150/72 96 09/11/17 07:38 09/11/17 07:38 09/11/17 07:38 09/11/17 04:00 09/11/17 07:38 Laboratory Results - last 24 hr 09/10/17 11:56: POC Glucose 151 H 09/10/17 16:42: POC Glucose 146 H 09/10/17 19:56: POC Glucose 158 H 09/10/17 21:50: Vancomycin Trough 19.5 09/11/17 10:39: POC Glucose 152 H I & O for Last 24 hours: Intake & Output 09/08/17 09/09/17 09/10/17 09/11/17 23:59 23:59 23:59 23:59 Intake Total 0 / 0 2283 / 2283 3386 / 3386 4781 / 4781 Output Total 1700 / 1700 1100 / 1100 2550 / 2550 1400 / 1400 Balance -1700 / -1700 1183 / 1183 836 / 836 3381 / 3381 Weight 65.799 kg 65.799 kg 65.799 kg 69.003 kg Microbiology Reports for the Last 24 Hours: Microbiology 09/08/17 10:42 Blood Blood Culture - Preliminary NO GROWTH AFTER 72 HOURS 09/08/17 10:42 Blood Blood Culture - Preliminary NO GROWTH AFTER 72 HOURS 09/08/17 Unknown Sputum - Expectorated Sputum Gram Stain - Final 09/08/17 Unknown Sputum - Expectorated Sputum Sputum Culture - Final Pseudomonas aeruginosa Assessment and Plan (1) HCAP (healthcare-associated pneumonia) Current visit: Yes Status: Acute Category: Medical Code(s): J18.9 - Pneumonia, unspecified organism (2) Sepsis Current visit: Yes Status: Acute Qualifiers: Sepsis type: sepsis due to unspecified organism Qualified Code(s): A41.9 - Sepsis, unspecified organism Category: Medical Code(s): A41.9 - Sepsis, unspecified organism (3) Atelectasis of right lung Current visit: No Status: Acute Category: Medical Code(s): J98.11 - Atelectasis (4) Dehydration Current visit: No Status: Acute Category: Medical Code(s): E86.0 - Dehydration (5) Fever Current visit: No Status: Acute Category: Medical Code(s): R50.9 - Fever, unspecified (6) Hypernatremia Current visit: No Status: Acute Category: Medical Code(s): E87.0 - Hyperosmolality and hypernatremia (7) MRSA pneumonia Current visit: No Status: Acute Category: Medical Code(s): J15.212 - Pneumonia due to Methicillin resistant Staphylococcus aureus (8) New onset atrial fibrillation Current visit: No Status: Acute Category: Medical Code(s): I48.91 - Unspecified atrial fibrillation (9) Pneumonia Current visit: No Status: Acute Category: Medical Code(s): J18.9 - Pneumonia, unspecified organism (10) Pseudomonal pneumonia Current visit: No Status: Acute Category: Medical Code(s): J15.1 - Pneumonia due to Pseudomonas (11) Pseudomonas urinary tract infection Current visit: No Status: Acute Category: Medical Code(s): N39.0 - Urinary tract infection, site not specified; B96.5 - Pseudomonas (aeruginosa) ( mallei) (pseudomallei) as the cause of diseases classified elsewhere (12) RML pneumonia Current visit: No Status: Acute Category: Medical Code(s): J18.1 - Lobar pneumonia, unspecified organism (13) SOB (shortness of breath) Current visit: No Status: Acute Category: Medical Code(s): R06.02 - Shortness of breath (14) SVT (supraventricular tachycardia) Current visit: No Status: Acute Category: Medical Code(s): I47.1 - Supraventricular tachycardia (15) Traumatic brain injury Current visit: No Status: Acute Category: Medical Code(s): S06.9X9A - Unspecified intracranial injury with loss of consciousness of unspecified duration, initial encounter (16) CRF (chronic renal failure) Current visit: No Status: Chronic Category: Medical Code(s): N18.9 - Chronic kidney disease, unspecified (17) Colostomy care Current visit: No Status: Chronic Category: Medical Code(s): Z43.3 - Encounter for attention to colostomy (18) Deaf Current visit: No Status: Chronic Category: Medical Code(s): H91.90 - Unspecified hearing loss, unspecified ear (19) Decubitus ulcer Current visit: No Status: Chronic Category: Medical Code(s): L89.90 - Pressure ulcer of unspecified site, unspecified stage (20) Decubitus ulcer of sacral region, stage 4 Current visit: No Status: Chronic Category: Medical Code(s): L89.154 - Pressure ulcer of sacral region, stage 4 (21) Dysphagia Current visit: No Status: Chronic Category: Medical Code(s): R13.10 - Dysphagia, unspecified (22) Gastrostomy tube in place Current visit: No Status: Chronic Category: Medical Code(s): Z93.1 - Gastrostomy status (23) Seizure disorder Current visit: No Status: Chronic Category: Medical Code(s): G40.909 - Epilepsy, unspecified, not intractable, without status epilepticus (24) Tracheostomy in place Current visit: No Status: Chronic Category: Medical Code(s): Z93.0 - Tracheostomy status (25) Type 2 diabetes mellitus Current visit: No Status: Chronic Category: Medical Code(s): E11.9 - Type 2 diabetes mellitus without complications (26) Hypoxemia Current visit: No Status: Resolved Category: Medical Code(s): R09.02 - Hypoxemia The patient's infection will respond to the chosen ABx?: Yes Is the patient receiving the right drug, dose, and route?: Yes Could a more targeted ABx be ordered?: No
--- NOTE | 2017-09-12 08:47 | Progress Note ---
Internal Medicine - PN: Subj *Date: 09/12/17 *Time: 08:43 Interval history: Patient has remained stable through the night. Continues to receive antibiotics , IV fluids and tube feedings. Exam Vital signs and Labs for Last 24 Hours: Temp Pulse Resp BP Pulse Ox 99.6 F 80 24 125/74 98 09/12/17 07:37 09/12/17 07:37 09/12/17 07:37 09/12/17 07:37 09/12/17 07:37 Laboratory Results - last 24 hr 09/11/17 05:15: POC Glucose 185 H 09/11/17 10:39: POC Glucose 152 H 09/11/17 15:55: POC Glucose 128 H 09/11/17 19:14: POC Glucose 161 H 09/12/17 05:22: POC Glucose 193 H I & O for Last 24 hours: Intake & Output 09/09/17 09/10/17 09/11/17 09/12/17 11:59 11:59 11:59 11:59 Intake Total 2283 / 2283 3386 / 3386 4781 / 4781 5093 / 5093 Output Total 1700 / 1700 3350 / 3350 1700 / 1700 4350 / 4350 Balance 583 / 583 36 / 36 3081 / 3081 743 / 743 Weight 145 lb 0.991 oz 145 lb 0.991 oz 152 lb 2 oz 158 lb 7 oz Microbiology Reports for the Last 24 Hours: Microbiology 09/08/17 Unknown Sputum - Expectorated Sputum Gram Stain - Final 09/08/17 Unknown Sputum - Expectorated Sputum Sputum Culture - Final Pseudomonas aeruginosa 09/08/17 10:42 Blood Blood Culture - Preliminary Gram Negative Rods 09/08/17 10:42 Blood Blood Culture - Preliminary NO GROWTH AFTER 72 HOURS Narrative: Patient is alert, tracks with his eyes. Communication is extremely difficult to ascertain. The patient will move his eyes when requested, intermittently, but randomly and I cannot detect any pattern to any type of response that might be construed as cognitive understanding of questions and responding appropriately with eye movements and blinking. Lungs are unchanged with rough sounding rhonchi throughout, heart rate regular. Abdomen soft, tube feeds infusing well. Neurologic exam otherwise unchanged. Assessment and Plan (1) HCAP (healthcare-associated pneumonia) Current visit: Yes Status: Acute Category: Medical Code(s): J18.9 - Pneumonia, unspecified organism (2) Sepsis Current visit: Yes Status: Acute Qualifiers: Sepsis type: sepsis due to unspecified organism Qualified Code(s): A41.9 - Sepsis, unspecified organism Category: Medical Code(s): A41.9 - Sepsis, unspecified organism (3) Atelectasis of right lung Current visit: No Status: Acute Category: Medical Code(s): J98.11 - Atelectasis (4) Dehydration Current visit: No Status: Acute Category: Medical Code(s): E86.0 - Dehydration (5) Fever Current visit: No Status: Acute Category: Medical Code(s): R50.9 - Fever, unspecified (6) Hypernatremia Current visit: No Status: Acute Category: Medical Code(s): E87.0 - Hyperosmolality and hypernatremia (7) MRSA pneumonia Current visit: No Status: Acute Category: Medical Code(s): J15.212 - Pneumonia due to Methicillin resistant Staphylococcus aureus (8) New onset atrial fibrillation Current visit: No Status: Acute Category: Medical Code(s): I48.91 - Unspecified atrial fibrillation (9) Pneumonia Current visit: No Status: Acute Category: Medical Code(s): J18.9 - Pneumonia, unspecified organism (10) Pseudomonal pneumonia Current visit: No Status: Acute Category: Medical Code(s): J15.1 - Pneumonia due to Pseudomonas (11) Pseudomonas urinary tract infection Current visit: No Status: Acute Category: Medical Code(s): N39.0 - Urinary tract infection, site not specified; B96.5 - Pseudomonas (aeruginosa) ( mallei) (pseudomallei) as the cause of diseases classified elsewhere (12) RML pneumonia Current visit: No Status: Acute Category: Medical Code(s): J18.1 - Lobar pneumonia, unspecified organism (13) SOB (shortness of breath) Current visit: No Status: Acute Category: Medical Code(s): R06.02 - Shortness of breath (14) SVT (supraventricular tachycardia) Current visit: No Status: Acute Category: Medical Code(s): I47.1 - Supraventricular tachycardia (15) Traumatic brain injury Current visit: No Status: Acute Category: Medical Code(s): S06.9X9A - Unspecified intracranial injury with loss of consciousness of unspecified duration, initial encounter (16) CRF (chronic renal failure) Current visit: No Status: Chronic Category: Medical Code(s): N18.9 - Chronic kidney disease, unspecified (17) Colostomy care Current visit: No Status: Chronic Category: Medical Code(s): Z43.3 - Encounter for attention to colostomy (18) Deaf Current visit: No Status: Chronic Category: Medical Code(s): H91.90 - Unspecified hearing loss, unspecified ear (19) Decubitus ulcer Current visit: No Status: Chronic Category: Medical Code(s): L89.90 - Pressure ulcer of unspecified site, unspecified stage (20) Decubitus ulcer of sacral region, stage 4 Current visit: No Status: Chronic Category: Medical Code(s): L89.154 - Pressure ulcer of sacral region, stage 4 (21) Dysphagia Current visit: No Status: Chronic Category: Medical Code(s): R13.10 - Dysphagia, unspecified (22) Gastrostomy tube in place Current visit: No Status: Chronic Category: Medical Code(s): Z93.1 - Gastrostomy status (23) Seizure disorder Current visit: No Status: Chronic Category: Medical Code(s): G40.909 - Epilepsy, unspecified, not intractable, without status epilepticus (24) Tracheostomy in place Current visit: No Status: Chronic Category: Medical Code(s): Z93.0 - Tracheostomy status (25) Type 2 diabetes mellitus Current visit: No Status: Chronic Category: Medical Code(s): E11.9 - Type 2 diabetes mellitus without complications (26) Hypoxemia Current visit: No Status: Resolved Category: Medical Code(s): R09.02 - Hypoxemia - Assessment and plan all Dx Assessment and Plan for all problems:: Patient has stabilized from his infectious disease perspective. Hold IV fluids today given his improved blood pressure and hemodynamic parameters. We have received official notification from state guardianship that authorization to enter hospice care for comfort measures and palliative care and with holding of tube feeds is authorized by his state guardian. However, his brother and [id number] were here yesterday, and all they are not his guardians have visited him frequently. They are, according to the nursing staff, not in agreement with this decision. As a result, this lends itself to an extremely difficult ethical decision. Therefore, I will make no changes in his regimen until he is officially accepted by hospice. Obviously if the patient's conditions worsen we will not escalate therapy.
--- NOTE | 2017-09-13 08:08 | Progress Note ---
Internal Medicine - PN: Subj *Date: 09/13/17 *Time: 08:05 Interval history: Patient condition is unchanged except he has a temperature of 100 this morning. Remains alert but noncommunicative. Exam Vital signs and Labs for Last 24 Hours: Temp Pulse Resp BP Pulse Ox 100.0 F H 86 20 110/69 95 09/13/17 07:55 09/13/17 07:55 09/13/17 07:55 09/13/17 07:55 09/13/17 07:55 Laboratory Results - last 24 hr 09/12/17 05:22: POC Glucose 193 H 09/12/17 11:19: POC Glucose 142 H 09/12/17 16:21: POC Glucose 161 H 09/12/17 20:28: POC Glucose 128 H 09/13/17 05:19: POC Glucose 233 H I & O for Last 24 hours: Intake & Output 09/10/17 09/11/17 09/12/17 09/13/17 11:59 11:59 11:59 11:59 Intake Total 3386 / 3386 4781 / 4781 5093 / 5093 4021 / 4021 Output Total 3350 / 3350 1700 / 1700 5200 / 5200 4300 / 4300 Balance 36 / 36 3081 / 3081 -107 / -107 -279 / -279 Weight 145 lb 0.991 oz 152 lb 2 oz 158 lb 7 oz 155 lb 1 oz Microbiology Reports for the Last 24 Hours: Microbiology 09/08/17 10:42 Blood Blood Culture - Preliminary Escherichia coli 09/08/17 10:42 Blood Blood Culture - Preliminary NO GROWTH AFTER 4 DAYS 09/08/17 Unknown Sputum - Expectorated Sputum Gram Stain - Final 09/08/17 Unknown Sputum - Expectorated Sputum Sputum Culture - Final Pseudomonas aeruginosa Narrative: Exam unchanged. Lungs with some rhonchi. No communication efforts. Perfusion is poor. Neurologic exam unchanged. Assessment and Plan (1) HCAP (healthcare-associated pneumonia) Current visit: Yes Status: Acute Category: Medical Code(s): J18.9 - Pneumonia, unspecified organism (2) Sepsis Current visit: Yes Status: Acute Qualifiers: Sepsis type: sepsis due to unspecified organism Qualified Code(s): A41.9 - Sepsis, unspecified organism Category: Medical Code(s): A41.9 - Sepsis, unspecified organism (3) Atelectasis of right lung Current visit: No Status: Acute Category: Medical Code(s): J98.11 - Atelectasis (4) Fever Current visit: No Status: Acute Category: Medical Code(s): R50.9 - Fever, unspecified (5) Pseudomonal pneumonia Current visit: No Status: Acute Category: Medical Code(s): J15.1 - Pneumonia due to Pseudomonas (6) RML pneumonia Current visit: No Status: Acute Category: Medical Code(s): J18.1 - Lobar pneumonia, unspecified organism (7) SOB (shortness of breath) Current visit: No Status: Acute Category: Medical Code(s): R06.02 - Shortness of breath (8) SVT (supraventricular tachycardia) Current visit: No Status: Acute Category: Medical Code(s): I47.1 - Supraventricular tachycardia (9) Traumatic brain injury Current visit: No Status: Acute Category: Medical Code(s): S06.9X9A - Unspecified intracranial injury with loss of consciousness of unspecified duration, initial encounter (10) CRF (chronic renal failure) Current visit: No Status: Chronic Category: Medical Code(s): N18.9 - Chronic kidney disease, unspecified (11) Colostomy care Current visit: No Status: Chronic Category: Medical Code(s): Z43.3 - Encounter for attention to colostomy (12) Deaf Current visit: No Status: Chronic Category: Medical Code(s): H91.90 - Unspecified hearing loss, unspecified ear (13) Decubitus ulcer Current visit: No Status: Chronic Category: Medical Code(s): L89.90 - Pressure ulcer of unspecified site, unspecified stage (14) Decubitus ulcer of sacral region, stage 4 Current visit: No Status: Chronic Category: Medical Code(s): L89.154 - Pressure ulcer of sacral region, stage 4 (15) Dysphagia Current visit: No Status: Chronic Category: Medical Code(s): R13.10 - Dysphagia, unspecified (16) Gastrostomy tube in place Current visit: No Status: Chronic Category: Medical Code(s): Z93.1 - Gastrostomy status (17) Seizure disorder Current visit: No Status: Chronic Category: Medical Code(s): G40.909 - Epilepsy, unspecified, not intractable, without status epilepticus (18) Tracheostomy in place Current visit: No Status: Chronic Category: Medical Code(s): Z93.0 - Tracheostomy status (19) Type 2 diabetes mellitus Current visit: No Status: Chronic Category: Medical Code(s): E11.9 - Type 2 diabetes mellitus without complications - Assessment and plan all Dx Assessment and Plan for all problems:: Currently treating patient for Pseudomonas pneumonia and E. coli sepsis. He has responded somewhat to these antibiotics. Please see my previous notes about hospice referral. Recommend finishing up this round of antibiotics. He may be able to be transferred back to his nursing facility under hospice care and then evaluate from there regarding comfort measures versus restarting antibiotics in the highly likely chance that he will become septic again.
[2017-09-14 07:45] VITALS: BP 140/86
--- NOTE | 2017-09-14 07:49 | Progress Note ---
Internal Medicine - PN: Subj *Date: 09/14/17 *Time: 08:19 Interval history: Patient appears comfortable. Nursing staff report he smiled a couple times through the night. Alert, eyes open. No response to verbal or tactile stimuli. Lung sounds fairly clear anteriorly. Trach in place with oxygen supplementing through trach collar. Rate and rhythm regular. Abdomen soft and nontender. Exam Vital signs and Labs for Last 24 Hours: Temp Pulse Resp BP Pulse Ox 98.0 F 94 H 26 H 140/86 96 09/14/17 07:44 09/14/17 07:44 09/14/17 07:44 09/14/17 07:44 09/14/17 07:44 Laboratory Results - last 24 hr 09/13/17 11:31: POC Glucose 135 H I & O for Last 24 hours: Intake & Output 09/11/17 09/12/17 09/13/17 09/14/17 11:59 11:59 11:59 11:59 Intake Total 4781 / 4781 5093 / 5093 4021 / 4021 2370 / 2370 Output Total 1700 / 1700 5200 / 5200 4300 / 4300 1999 / 1999 Balance 3081 / 3081 -107 / -107 -279 / -279 370 / 370 Weight 152 lb 2 oz 158 lb 7 oz 155 lb 1 oz Microbiology Reports for the Last 24 Hours: Microbiology 09/08/17 Unknown Sputum - Expectorated Sputum Gram Stain - Final 09/08/17 Unknown Sputum - Expectorated Sputum Sputum Culture - Final Pseudomonas aeruginosa 09/08/17 10:42 Blood Blood Culture - Final Escherichia coli 09/08/17 10:42 Blood Blood Culture - Final NO GROWTH AFTER 5 DAYS Assessment and Plan (1) HCAP (healthcare-associated pneumonia) Current visit: Yes Status: Acute Category: Medical Code(s): J18.9 - Pneumonia, unspecified organism (2) Sepsis Current visit: Yes Status: Acute Qualifiers: Sepsis type: sepsis due to unspecified organism Qualified Code(s): A41.9 - Sepsis, unspecified organism Category: Medical Code(s): A41.9 - Sepsis, unspecified organism (3) Atelectasis of right lung Current visit: No Status: Acute Category: Medical Code(s): J98.11 - Atelectasis (4) Fever Current visit: No Status: Acute Category: Medical Code(s): R50.9 - Fever, unspecified (5) Pseudomonal pneumonia Current visit: No Status: Acute Category: Medical Code(s): J15.1 - Pneumonia due to Pseudomonas (6) RML pneumonia Current visit: No Status: Acute Category: Medical Code(s): J18.1 - Lobar pneumonia, unspecified organism (7) SOB (shortness of breath) Current visit: No Status: Acute Category: Medical Code(s): R06.02 - Shortness of breath (8) SVT (supraventricular tachycardia) Current visit: No Status: Acute Category: Medical Code(s): I47.1 - Supraventricular tachycardia (9) Traumatic brain injury Current visit: No Status: Acute Category: Medical Code(s): S06.9X9A - Unspecified intracranial injury with loss of consciousness of unspecified duration, initial encounter (10) CRF (chronic renal failure) Current visit: No Status: Chronic Category: Medical Code(s): N18.9 - Chronic kidney disease, unspecified (11) Colostomy care Current visit: No Status: Chronic Category: Medical Code(s): Z43.3 - Encounter for attention to colostomy (12) Deaf Current visit: No Status: Chronic Category: Medical Code(s): H91.90 - Unspecified hearing loss, unspecified ear (13) Decubitus ulcer Current visit: No Status: Chronic Category: Medical Code(s): L89.90 - Pressure ulcer of unspecified site, unspecified stage (14) Decubitus ulcer of sacral region, stage 4 Current visit: No Status: Chronic Category: Medical Code(s): L89.154 - Pressure ulcer of sacral region, stage 4 (15) Dysphagia Current visit: No Status: Chronic Category: Medical Code(s): R13.10 - Dysphagia, unspecified (16) Gastrostomy tube in place Current visit: No Status: Chronic Category: Medical Code(s): Z93.1 - Gastrostomy status (17) Seizure disorder Current visit: No Status: Chronic Category: Medical Code(s): G40.909 - Epilepsy, unspecified, not intractable, without status epilepticus (18) Tracheostomy in place Current visit: No Status: Chronic Category: Medical Code(s): Z93.0 - Tracheostomy status (19) Type 2 diabetes mellitus Current visit: No Status: Chronic Category: Medical Code(s): E11.9 - Type 2 diabetes mellitus without complications - Assessment and plan all Dx Assessment and Plan for all problems:: Patient is receiving Hospice Care with goal of comfort. Dr. Sharp had extensive conversation with Hospice physician Dr. Alexis yesterday. Tube feedings were continued at half goal rate for gastric comfort. All medications were discontinued with exception of Ativan and Risperdone. See PN from yesterday. [facility].
[2017-09-14 09:29] LABS: Anion Gap 8.1 mEq/L (5-15); Potassium 3.1 mmoL/L (3.5-5.1)
--- NOTE | 2017-09-14 16:57 | Discharge Summary ---
General - General Admission date:: 09/08/17 Discharge date: 09/14/17 HPI HPI: 42-year-old white male, longtime resident of local shelter with significant history of traumatic brain injury and recent worsening pulmonary status with worsening recurrent pneumonitis, worsening recurrent pneumonias and recurrent sepsis episodes who was just transferred back to the nursing facility 2 days ago but brought back to the emergency department because of low saturations and low blood pressure. In the emergency department suctioning did help his oxygen status but continued to have low blood pressure, high lactic acid, new infiltrate on chest x-ray and is admitted to hospital for antibiotic therapy and further care determination. Patient is unable to give a history. Hospital Course Hospital Course: Patient was admitted to medical surgery unit for sepsis. Sputum culture was obtained which was positive for pseudomonas. He was given multiple antibiotic infusions. Care management was consulted regarding recommendation for Hospice care given his extensive medical history and poor prognosis. Dr. Grzegorz Sharp and Dr. Grzegorz Cordoba submitted recommendations for Hospice Care to the state on the patient's behalf. State guardian agreed that Hospice Care was in the patient's best interest. Yesterday, Dr. Sharp had extensive conversation with Hospice physician Dr. Alexis. Tube feedings were continued at half goal rate for gastric comfort. All medications were discontinued with exception of Ativan and Risperdone. He has been [facility] and a bed is now available. [facility]. Hospice physician to make further recommendations regarding medications and care. Objective Vital signs: Temp Pulse Resp BP Pulse Ox 98.0 F 94 H 26 H 140/86 96 09/14/17 07:44 09/14/17 07:44 09/14/17 07:44 09/14/17 07:44 09/14/17 09:00 Narrative: See PN from this morning Results Labs on day of discharge: Labs from last 24 hours 09/14/17 09/13/17 09:11 11:31 Sodium 145 Potassium 3.1 L Chloride 107 Carbon Dioxide 33 H Anion Gap 8.1 BUN 14 Creatinine 0.51 L Estimated Creat Clear 184 Estimated GFR 177 Est GFR ( Amer) 214 Glucose 211 H POC Glucose 135 H DS: Diagnosis - Discharge Diagnosis (1) HCAP (healthcare-associated pneumonia) Status: Acute (2) Sepsis Status: Acute (3) Atelectasis of right lung Status: Acute (4) Fever Status: Acute (5) Pseudomonal pneumonia Status: Acute (6) RML pneumonia Status: Acute (7) SOB (shortness of breath) Status: Acute (8) SVT (supraventricular tachycardia) Status: Acute (9) Traumatic brain injury Status: Acute (10) CRF (chronic renal failure) Status: Chronic (11) Colostomy care Status: Chronic (12) Deaf Status: Chronic (13) Decubitus ulcer Status: Chronic (14) Decubitus ulcer of sacral region, stage 4 Status: Chronic (15) Dysphagia Status: Chronic (16) Gastrostomy tube in place Status: Chronic (17) Seizure disorder Status: Chronic (18) Tracheostomy in place Status: Chronic (19) Type 2 diabetes mellitus Status: Chronic Discharge Plan - Patient Discharge Instructions ACTIVITY: Continue current activity DIET: continue same diet - Follow up Plan Unknown provider or service follow up:: Hospice physician 09/14/17 17:04 Disposition: Hospice - Home Home Medications: Home Medications Medication Instructions Recorded Confirmed Type ALPRAZolam [Xanax 1mg tab] 1 mg G-TUBE TID 06/15/17 09/08/17 History Baclofen 20 mg G-TUBE TID 06/15/17 09/08/17 History Famotidine [Pepcid 20mg Tablet] 20 mg G-TUBE BID 06/15/17 09/08/17 History Sennosides [Senna] 8.6 mg G-TUBE BID 06/15/17 09/08/17 History Thiamine HCl 100 mg G-TUBE BID 06/15/17 09/08/17 History risperiDONE [Risperdal 0.5mg 0.5 mg G-TUBE BID 06/15/17 09/08/17 History tablet] Insulin Glargine,Hum.rec.anlog 10 unit SQ HS 08/16/17 09/08/17 History [Insulin Glargine 100 Units/mL 3mL flexpen] Insulin Regular, Human [Humulin R 0 units SQ DIRECTED 08/16/17 09/08/17 History Insulin 100 Units/mL 10mL Vial] Bisoprolol Fumarate [Zebeta 5mg 5 mg FEED TUBE BID 09/03/17 09/08/17 History tablet] Docusate Sodium [Colace] 100 mg FEED TUBE BID 09/03/17 09/08/17 History Enoxaparin Sodium [Lovenox 40 mg SQ DAILY 09/03/17 09/08/17 History 40mg/0.4mL syringe] Folic Acid/Vit B Complex and C 0.8 mg FEED TUBE DAILY 09/03/17 09/08/17 History [Syeda-Byron Tablet] L. Acidophilus/L.bulgaricus 1 each FEED TUBE TID 09/03/17 09/08/17 History [Floranex Tablet] Polyethylene Glycol 3350 [Miralax 17 gm FEED TUBE HS 09/03/17 09/08/17 History 17gm Packet] Valproic Acid (As Sodium Salt) 250 mg FEED TUBE TID 09/03/17 09/08/17 History [Valproic Acid] levETIRAcetam [Levetiracetam] 1,000 mg G-TUBE BID 09/03/17 09/08/17 History Cefepime HCl [Maxipime 2gm Vial] 2 gm IV Q12H 09/08/17 09/08/17 History Tobramycin Sulfate [Tobramycin 100 mg IV Q12H 09/08/17 09/08/17 History 80mg/2mL Vial] Prescriptions/Medication Reconciliation: Continue risperiDONE [Risperdal 0.5mg tablet] 0.5 mg G-TUBE BID Discontinued Thiamine HCl 100 mg G-TUBE BID Famotidine [Pepcid 20mg Tablet] 20 mg G-TUBE BID Baclofen 20 mg G-TUBE TID ALPRAZolam [Xanax 1mg tab] 1 mg G-TUBE TID Insulin Glargine,Hum.rec.anlog [Insulin Glargine 100 Units/mL 3mL flexpen] 10 unit SQ HS Enoxaparin Sodium [Lovenox 40mg/0.4mL syringe] 40 mg SQ DAILY L. Acidophilus/L.bulgaricus [Floranex Tablet] 1 each FEED TUBE TID Valproic Acid (As Sodium Salt) [Valproic Acid] 250 mg FEED TUBE TID Bisoprolol Fumarate [Zebeta 5mg tablet] 5 mg FEED TUBE BID Folic Acid/Vit B Complex and C [Syeda-Byron Tablet] 0.8 mg FEED TUBE DAILY levETIRAcetam [Levetiracetam] 1,000 mg G-TUBE BID Sennosides [Senna] 8.6 mg G-TUBE BID Insulin Regular, Human [Humulin R Insulin 100 Units/mL 10mL Vial] 0 units SQ DIRECTED Polyethylene Glycol 3350 [Miralax 17gm Packet] 17 gm FEED TUBE HS Docusate Sodium [Colace] 100 mg FEED TUBE BID Tobramycin Sulfate [Tobramycin 80mg/2mL Vial] 100 mg IV Q12H Cefepime HCl [Maxipime 2gm Vial] 2 gm IV Q12H
== END 2017-09-14 18:00 | disposition hospice, inpatient (51) ==
LOC: ER 10:23 → 2ND 13:59
PROVIDERS: ADMIT Internal Medicine Adolescent Medicine; ATTEND Internal Medicine Adolescent Medicine